=== PATIENT | male | born 1960 | race Caucasian/White ===

== ENCOUNTER 2018-02-22 16:10 | Emergency (ER) | payer OTHER ==
[2018-02-22] MEDS ORDERED: ONDANSETRON 4 MG/2 ML VIAL IVP STA ×2 (17:08→18:25)
[2018-02-22] MEDS ORDERED: SODIUM CHLORIDE 0.9% 1,000 ML IV STA (17:08)
[2018-02-22] MEDS ORDERED: KETOROLAC 30 MG/ML 1 ML VIAL IVP STA (17:08)
--- NOTE | 2018-02-22 17:12 | ED ---
Abdominal Pain HPI - General Chief Complaint: Abdominal Pain Stated Complaint: flank pain Time Seen by Provider: 02/22/18 17:04 Source: patient Mode of arrival: ambulatory Limitations: no limitations - History of Present Illness Initial Comments: 57-year-old male patient presents to the emergency department today for evaluation of right-sided mid abdominal pain. Patient describes the pain as sharp and stabbing in nature. States he did have some nausea earlier today but he has not vomited. Patient states had similar episodes of pain on Saturday but did resolve. Patient denies any radiation of the pain into his back. Denies any fever, chills, constipation, diarrhea, hematuria, dysuria, urinary frequency, urinary urgency. Patient denies any recent rash, shortness breath, chest pain, back pain, numbness, tingling, dizziness, weakness, headache, visual changes, or any other complaints. Patient has a benign past medical history and denies any previous surgeries to his abdomen. - Related Data Previous Rx's Medication Instructions Recorded Hydrocodone/Acetaminophen [[place] 1 tab PO Q6HR PRN #12 tab 02/22/18 5-325] Ketorolac [Toradol] 10 mg PO Q6HR #20 tab 02/22/18 Ondansetron [Zofran ODT] 4 mg PO Q8HR PRN #10 tab 02/22/18 Sulfamethoxazole/Trimethoprim 1 each PO BID #14 tablet 02/22/18 [Bactrim DS 800-160 mg] Tamsulosin HCl [Flomax] 0.4 mg PO DAILY #7 cap 02/22/18 Allergies Allergy/AdvReac Type Severity Reaction Status Date / Time No Known Allergies Allergy Verified 02/22/18 16:35 Review of Systems ROS Statement: Those systems with pertinent positive or pertinent negative responses have been documented in the HPI. ROS Other: All systems not noted in ROS Statement are negative. Past Medical History Past Medical History: No Reported History History of Any Multi-Drug Resistant Organisms: None Reported Past Surgical History: Orthopedic Surgery Past Psychological History: No Psychological Hx Reported Smoking Status: Never smoker Past Alcohol Use History: Daily Past Drug Use History: None Reported General Exam Limitations: no limitations General appearance: alert, in no apparent distress, other (This is a well- developed, well-nourished adult male patient in no acute distress. Vital signs upon presentation are temperature 98.3F, pulse 77, respirations 18, blood pressure 174/81, pulse ox 96% on room air.) Eye exam: Present: normal appearance, PERRL, EOMI. Absent: scleral icterus, conjunctival injection, periorbital swelling ENT exam: Present: normal exam, normal oropharynx, mucous membranes moist Respiratory exam: Present: normal lung sounds bilaterally. Absent: respiratory distress, wheezes, rales, rhonchi, stridor Cardiovascular Exam: Present: regular rate, normal rhythm, normal heart sounds. Absent: systolic murmur, diastolic murmur, rubs, gallop, clicks GI/Abdominal exam: Present: soft, normal bowel sounds. Absent: distended, tenderness, guarding, rebound, rigid Back exam: Absent: CVA tenderness (R), CVA tenderness (L) Neurological exam: Present: alert, oriented X3, CN II-XII intact Psychiatric exam: Present: normal affect, normal mood Skin exam: Present: warm, dry, intact, normal color. Absent: rash Course Vital Signs 02/22/18 16:35 Temperature 98.3 F Pulse Rate 77 Respiratory 18 Rate Blood Pressure 174/81 O2 Sat by Pulse 96 Oximetry Medical Decision Making - Medical Decision Making 57-year-old male patient presents to emergency department today for evaluation of right-sided abdominal pain. Physical examination was relatively unremarkable. Patient no flank tenderness, no abdominal tenderness. Labs reviewed and did reveal 8.4 neutrophil count, BUN 24, GFR 66, glucose 118. Urinalysis did show trace protein, moderate blood, 60 red blood cells, 6 white blood cells, rare bacteria, and rare mucous. Given symptoms and presence of blood in the urine he did perform CT abdomen and pelvis to rule out kidney stone , findings did show a 1 cm calculus in the distal third ureter on the right side. There is moderate hydronephrosis and perinephritic fat stranding. Given size of the stone I did discuss with patient the possibility of admission to see urologist in the morning, patient would rather attempt outpatient management and follow-up with urology outpatient. I did give prescriptions for [place], Toradol, Zofran, and Flomax. He also started Bactrim for presence of bacteria in the urine. Return parameters were discussed in detail. He verbalizes understanding and agrees with this plan. - Lab Data Result diagrams: 02/22/18 17:20 02/22/18 17:20 Lab Results 02/22/18 02/22/18 02/22/18 Range/Units 17:20 17:20 17:34 WBC 10.6 (3.8-10.6) k/uL RBC 4.53 (4.30-5.90) m/uL Hgb 14.7 (13.0-17.5) gm/dL Hct 44.8 (39.0-53.0) % MCV 98.8 (80.0-100.0) fL MCH 32.5 (25.0-35.0) pg MCHC 32.9 (31.0-37.0) g/dL RDW 12.1 (11.5-15.5) % Plt Count 191 (150-450) k/uL Neutrophils % 80 % Lymphocytes % 11 % Monocytes % 7 % Eosinophils % 1 % Basophils % 0 % Neutrophils # 8.4 H (1.3-7.7) k/uL Lymphocytes # 1.2 (1.0-4.8) k/uL Monocytes # 0.8 (0-1.0) k/uL Eosinophils # 0.1 (0-0.7) k/uL Basophils # 0.0 (0-0.2) k/uL Sodium 142 (137-145) mmol/L Potassium 4.1 (3.5-5.1) mmol/L Chloride 107 (98-107) mmol/L Carbon Dioxide 26 (22-30) mmol/L Anion Gap 9 mmol/L BUN 24 H (9-20) mg/dL Creatinine 1.22 (0.66-1.25) mg/dL Est GFR (CKD-EPI)AfAm 76 (>60 ml/min/1.73 sqM) Est GFR (CKD-EPI)NonAf 66 (>60 ml/min/1.73 sqM) Glucose 118 H (74-99) mg/dL Calcium 9.9 (8.4-10.2) mg/dL Total Bilirubin 0.6 (0.2-1.3) mg/dL AST 32 (17-59) U/L ALT 59 (21-72) U/L Alkaline Phosphatase 82 (38-126) U/L Total Protein 7.3 (6.3-8.2) g/dL Albumin 4.4 (3.5-5.0) g/dL Amylase 59 (30-110) U/L Lipase 19 L (23-300) U/L Urine Color Yellow Urine Appearance Clear (Clear) Urine pH 6.0 (5.0-8.0) Ur Specific [place] 1.015 (1.001-1.035) Urine Protein Trace H (Negative) Urine Glucose (UA) Negative (Negative) Urine Ketones Negative (Negative) Urine Blood Moderate H (Negative) Urine Nitrite Negative (Negative) Urine Bilirubin Negative (Negative) Urine Urobilinogen <2.0 (<2.0) mg/dL Ur Leukocyte Esterase Negative (Negative) Urine RBC 60 H (0-5) /hpf Urine WBC 6 H (0-5) /hpf Ur Squamous Epith Cells <1 (0-4) /hpf Urine Bacteria Rare H (None) /hpf Urine Mucus Rare H (None) /hpf - Radiology Data Radiology results: report reviewed, image reviewed CT abdomen and pelvis without contrast was obtained. Report was reviewed in its entirety. There is a 1 cm meter ovoid calculus in the distal third right ureter at the crossing with the iliac vessels. This causes moderate obstructive uropathy. Additional nonobstructive 3 mm right renal calculus, hepatomegaly, and prostatomegaly are also noted. Disposition Clinical Impression: Kidney stone on right side Disposition: HOME SELF-CARE Condition: Good Instructions: Kidney Stones (ED), How to Strain Your Urine (ED) Additional Instructions: Increase fluids. Take medications as directed. Follow-up with urologist for further evaluation. Return here immediately for any new, worsening, or concerning symptoms. Prescriptions: Hydrocodone/Acetaminophen [[place] 5-325] 1 tab PO Q6HR PRN #12 tab PRN Reason: Pain Ketorolac [Toradol] 10 mg PO Q6HR #20 tab Ondansetron [Zofran ODT] 4 mg PO Q8HR PRN #10 tab PRN Reason: Nausea Sulfamethoxazole/Trimethoprim [Bactrim DS 800-160 mg] 1 each PO BID #14 tablet Tamsulosin HCl [Flomax] 0.4 mg PO DAILY #7 cap Is patient prescribed a controlled substance at d/c from ED?: Yes When asked, does pt state using other controlled substances?: No If prescribed controlled substance>3 days was MAPS reviewed?: Prescribed <3 Days If opioid is for acute pain is fill amount 7 days or less?: Yes If Rx opioid, was Start Talking consent form obtained?: Yes Referrals: Francisco Virgen MD [Primary Care Provider] - 1-2 days Elder Guerrero MD [STAFF PHYSICIAN] - 1-2 days Time of Disposition: 18:46
[2018-02-22 17:43] LABS: Appearance,Urine Clear (Clear); Bacteria,Urine Rare /hpf; Bilirubin,Urine Negative (Negative); Blood,Urine Moderate (Negative); Color,Urine Yellow; Glucose,Urine (UA) Negative (Negative); Ketones,Urine Negative (Negative); Leukocyte Esterase,Urine Negative (Negative); Mucus,Urine Rare /hpf; Nitrite,Urine Negative (Negative); Protein,Urine Trace (Negative); RBC,Urine 60 /hpf (0-5); Specific Gravity,Urine 1.015 (1.001-1.035); Squamous Epithelial Cell,Urine <1 /hpf (0-4); Urobilinogen,Urine <2.0 mg/dL (<2.0); WBC,Urine 6 /hpf (0-5)
[2018-02-22 17:45] LABS: Basophils % (A) 0 %; Eosinophils # (A) 0.1 k/uL (0-0.7); Eosinophils % (A) 1 %; HCT 44.8 % (39.0-53.0); HGB 14.7 gm/dL (13.0-17.5); Lymphocytes # (A) 1.2 k/uL (1.0-4.8); Lymphocytes % (A) 11 %; MCH 32.5 pg (25.0-35.0); MCHC 32.9 g/dL (31.0-37.0); MCV 98.8 fL (80.0-100.0); Mean Platelet Volume 7.4; Monocytes # (A) 0.8 k/uL (0-1.0); Monocytes % (A) 7 %; Neutrophils # (A) 8.4 k/uL (1.3-7.7); Neutrophils % (A) 80 %; Platelet Count 191 k/uL (150-450); RBC 4.53 m/uL (4.30-5.90); RDW 12.1 % (11.5-15.5); WBC 10.6 k/uL (3.8-10.6)
[2018-02-22 17:46] LABS: Albumin 4.4 g/dL (3.5-5.0); Calcium 9.9 mg/dL (8.4-10.2); Potassium 4.1 mmol/L (3.5-5.1); Total Bilirubin 0.6 mg/dL (0.2-1.3); Total Protein 7.3 g/dL (6.3-8.2)
[2018-02-22] MEDS ORDERED: MORPHINE SULFATE 4 MG/ML SYRINGE IVP STA (18:25)
--- NOTE | 2018-02-22 18:30 | CT ---
EXAMINATION TYPE: CT abdomen pelvis wo con DATE OF EXAM: 02/22/2018 COMPARISON: None HISTORY: 57-year-old male Right sided abdominal pain CT DLP: 711.8 mGycm. Automated exposure control for dose reduction was used. TECHNIQUE: Contiguous axial scanning of the abdomen and pelvis without IV contrast. Coronal and sagit rachana reconstructions performed. FINDINGS: Heart normal size without pericardial effusion. Lung bases clear without pleural effusion. Liver mild ly enlarged measuring 18.7 cm craniocaudal. Noncontrast appearance of the liver, gallbladder, adrenal glands, left kidney, spleen, and pancreas show no gross abnormality. Nonobstructive 3 mm calculus lower pole right kidney. There is right-sided perinephric stranding and edema and moderate hydronephrosis and hydroureter. There is a ovoid 1.0 cm calculus at the distal thi rd right ureter at the crossing with the iliac vessels. No dilated small bowel, free fluid, or free air. No mesenteric or retroperitoneal lymphadenopathy. Mild stool burden. No pericolonic inflammatory change. Bladder partially distended. Prostate gland enlarged at 5.3 cm wide. No abnormal fluid collection in the pelvis or pelvic lymphadenopathy. Bones: Degenerative changes of the hips and degenerative disc disease throughout the mid to lower lum bar spine. No osseous destructive process. IMPRESSION: A 1 cm ovoid calculus in the distal third right ureter at the crossing with the iliac vessels. This c auses moderate obstructive uropathy. Additional nonobstructive 3 mm right renal calculus, hepatomegaly (18.7 cm), and prostatomegaly (5.3 cm wide).
[2018-02-22] MEDS ORDERED: TAMSULOSIN 0.4 MG CAP.ER.24H PO STA (18:47)
[2018-02-22 19:01] VITALS: BP 128/70; PULSE 78; RESP 16; TEMP 97.8
[2018-02-22] MEDS ORDERED: IBUPROFEN 600 MG TAB PO STA (20:03)
[2018-02-22] MEDS ORDERED: ACET/COD 300 MG/30 MG STARTER PACK 6 TAB BTL PO STA (20:03)
[2018-02-22] MEDS ORDERED: SULFAMETH-TMP DS STARTER PACK 2 TAB BTL PO STA (20:03)
== END 2018-02-22 19:00 | disposition home or self-care (01) ==
LOC: EC 16:10
DX: N13.2 Hydronephrosis with renal and ureteral calculous obstruction (principal); R16.0 Hepatomegaly, not elsewhere classified; N40.0 Benign prostatic hyperplasia without lower urinary tract symptoms; R82.71 Bacteriuria
CPT/HCPCS: 36415; 80053; 82150; 83690; 85025; 81001; 74176; 99284; 96374; 96375 ×2; 96376; 96361; J2270; J2405; J1885

== ENCOUNTER 2018-08-20 10:16 | Day surgery (SDC) | payer OTHER ==
[2018-08-19 10:01] VITALS: BMI 24.9
[~2018-08-20 10:16] MED LIST: LIDOCAINE 1% 20 ML VIAL (10MG/ML) FOR IV START INTRADERMA PRN
[2018-08-20] MEDS: LACTATED RINGERS 1,000 ML IV SCH ×2 (11:20→12:05)
[2018-08-20 11:32] VITALS: RESP 18; TEMP 97
[2018-08-20] MEDS ORDERED: PROPOFOL 10 MG/ML 20 ML VIAL IV ONE (12:05)
[2018-08-20] MEDS ORDERED: MIDAZOLAM 2 MG/2 ML VIAL ONE (12:05)
[2018-08-20] MEDS ORDERED: fentaNYL (PF) 50 MCG/ML 2 ML AMP ONE (12:05)
--- NOTE | 2018-08-20 12:24 | P.PCN ---
Date of Procedure: 08/20/18 Procedure(s) Performed: BRIEF HISTORY: Patient is a 58-year-old pleasant male, scheduled for an elective colonoscopy as a part of screening for colorectal neoplasia. PROCEDURE PERFORMED: Colonoscopy with snare polypectomy. PREOPERATIVE DIAGNOSIS: Screening for colon cancer. IV sedation per Anesthesia. PROCEDURE: After informed consent was obtained, the patient, was brought into the endoscopy unit. IV sedation was administered by Anesthesia under continuous monitoring. Digital rectal examination was normal. Initially the Olympus CF- 160 flexible video colonoscope was then inserted in the rectum, gradually advanced into the cecum without any difficulty. Careful examination was performed as the scope was gradually being withdrawn. Ileocecal valve and the appendiceal orifice were visualized and appeared normal. Prep was excellent. Mucosa of the cecum, ascending colon, transverse colon, appeared normal. In the descending colon there was a 7-8 mm polyp that was removed by snare polypectomy. Rest of the descending colon, sigmoid colon, and rectum appeared normal. Scattered sigmoid diverticulosis seen. Retroflexion was performed in the rectum and no lesions were seen. The patient tolerated the procedure well. IMPRESSION: 7-8 mm descending colon polyp status post polypectomy Scattered sigmoidal diverticulosis RECOMMENDATIONS: Findings of this examination were discussed with the patient as well as his family. He was advised to follow with the biopsy results. If the biopsy shows adenoma, he can have a repeat colonoscopy in 5 years.
[2018-08-20 13:03] VITALS: BP 163/80; PULSE 74
== END 2018-08-20 13:05 | disposition home or self-care (01) ==
LOC: ORWHC2ENDO 10:16
PROVIDERS: ATTEND Internal Medicine Gastroenterology
DX: Z12.11 Encounter for screening for malignant neoplasm of colon (principal); K63.5 Polyp of colon; K57.30 Diverticulosis of large intestine without perforation or abscess without bleeding; Z79.899 Other long term (current) drug therapy
CPT/HCPCS: 88305; 45385; J2250; J3010; J2704

== ENCOUNTER → 2020-04-27 | Outpatient (CLI) | payer OTHER ==
[2020-04-27 11:10] LABS: HCT 46.6 % (39.0-53.0); HGB 15.3 gm/dL (13.0-17.5); MCH 33.5 pg (25.0-35.0); MCHC 32.9 g/dL (31.0-37.0); Mean Platelet Volume 7.7; Platelet Count 192 k/uL (150-450); RBC 4.57 m/uL (4.30-5.90); RDW 11.5 % (11.5-15.5); WBC 8.4 k/uL (3.8-10.6)
[2020-04-27 11:26] LABS: African American GFR (CKD) >90 (>60 ml/min/1.73 sqM); Blood Urea Nitrogen 24 mg/dL (9-20); Magnesium 2.2 mg/dL (1.6-2.3); Non-African American GFR(CKD) 83 (>60 ml/min/1.73 sqM)
== END | disposition home or self-care (01) ==
LOC: LABPAT 09:40
PROVIDERS: ATTEND Internal Medicine Interventional Cardiology
DX: Z01.818 Encounter for other preprocedural examination (principal); I34.0 Nonrheumatic mitral (valve) insufficiency
CPT/HCPCS: 82565; 83735; 84520; 85027

== ENCOUNTER 2020-05-03 06:12 | Day surgery (SDC) | payer OTHER ==
[2020-04-29 15:47] VITALS: BMI 26.7
[~2020-05-03 06:12] MED LIST changes: +ALPRAZolam 0.25 MG TAB PO PRN; +ALPRAZolam 0.5 MG TAB PO PRN; -LIDOCAINE 1% 20 ML VIAL (10MG/ML) FOR IV START INTRADERMA PRN; +NITROGLYCERIN SL TABS 0.4 MG TAB SUBLINGUAL PRN; +SODIUM CHLORIDE 0.9% 1,000 ML in EMPTY BAG 1 BAG IV ONE
[2020-05-03] MEDS ORDERED: SODIUM CHLORIDE 0.9% 1,000 ML IV ONE (06:24)
[2020-05-03 06:49] VITALS: TEMP 98.8
[2020-05-03] MEDS ORDERED: ASPIRIN 325 MG TAB PO ONE (07:00)
[2020-05-03] MEDS ORDERED: ATORVASTATIN 80 MG TAB PO ONE (07:00)
[2020-05-03] MEDS ORDERED: fentaNYL (PF) 50 MCG/ML 2 ML AMP ONE (07:03)
[2020-05-03] MEDS ORDERED: LIDOCAINE 1% INJ 10MG/ML (20 ML MDV) ONE (07:12)
[2020-05-03] MEDS: BENZOCAINE SPRAY 1 CAN MUCOUS MEM ONE ×2 (07:14→07:21)
[2020-05-03] MEDS ORDERED: MIDAZOLAM 2 MG/2 ML VIAL IV ONE ×2 (07:20→07:23)
[2020-05-03] MEDS ORDERED: fentaNYL (PF) 50 MCG/ML 2 ML AMP IV ONE (07:20)
[2020-05-03] MEDS ORDERED: IV FLUID CONTINUATION 1,000 ML IV ONE (07:42)
[2020-05-03] MEDS ORDERED: VERAPAMIL 2.5 MG/ML 2 ML AMP ONE (07:43)
[2020-05-03] MEDS ORDERED: LIDOCAINE 1% INJ 10MG/ML (20 ML MDV) SQ ONE (08:02)
[2020-05-03] MEDS ORDERED: VERAPAMIL SYRINGE (5 MG/10 ML) INTRAARTER ONE (08:05)
[2020-05-03] MEDS ORDERED: HEPARIN SODIUM 1,000 UN/ML (10ML VL) ONE (08:19)
[2020-05-03] MEDS ORDERED: HEPARIN SODIUM 1,000 UN/ML (10ML VL) IV ONE (08:20)
[2020-05-03 08:27] LABS: O2 Sat Blood Gas 78.7 %
[2020-05-03] MEDS ORDERED: IOPAMIDOL-370 125ML BTL INJ ONE (08:27)
[2020-05-03 08:29] LABS: O2 Sat Blood Gas 61.2 %
[2020-05-03 08:31] LABS: O2 Sat Blood Gas 97.4 %
[2020-05-03] MEDS ORDERED: RX INFO: IV CONTRAST WAS GIVEN 1 EACH MISC MISCELLANE PRN (08:44)
[2020-05-03] MEDS ORDERED: SODIUM CHLORIDE 0.9% 1,000 ML IV SCH (08:45)
[2020-05-03] MEDS ORDERED: lisinopriL 10 MG TAB PO SCH (09:00)
[2020-05-03] MEDS ORDERED: ATORVASTATIN 10 MG TAB PO SCH (09:00)
[2020-05-03 09:32] VITALS: RESP 16
--- NOTE | 2020-05-03 10:43 | ECHOT ---
TRANSESOPHAGEAL ECHOCARDIOGRAM INDICATIONS: Evaluation of mitral valve. PROCEDURE: After explaining the procedure to the patient, its risks and the complications, his blood pressure, heart rate, O2 saturation was monitored. The throat was sprayed with Cetacaine, he received 3 mg intravenous Versed, 50 mcg intravenous fentanyl. The probe was introduced esophagus without difficulty. Images were obtained. Following that, the probe was removed there was no immediate complication. FINDINGS: Left atrial size is mildly dilated. Left atrial appendage is normal. Normal ejection fraction of 50% to 55%.The aortic valve and the tricuspid valve is normal. Mitral valve reveals severe prolapse of the posterior mitral valve leaflets with the P3 segment with ruptured chordae. The descending thoracic aorta appears normal. Contrast bubble study revealed no evidence shunting across the interatrial septum with Valsalva maneuver. Doppler pulse wave and color Doppler were obtained revealed severe eccentric mitral regurgitation with mild tricuspid regurgitation. There was no shunting by color Doppler study. CONCLUSION: 1. Dilated left atrium with normal appearance of left atrial appendage. 2. Normal left ventricular size with an ejection fraction of 50% to 55%. 3. Severe eccentric mitral regurgitation with severe prolapse of the P3 segment with ruptured chordae. 4. Mild tricuspid regurgitation. 5. No shunting across the interatrial septum. 6. Normal appearance of the descending thoracic aorta. MMODL / IJN: [id number] /
[2020-05-03 11:36] LABS: Basophils % (A) 1 %; Eosinophils % (A) 1 %; HCT 41.8 % (39.0-53.0); HGB 14.3 gm/dL (13.0-17.5); Lymphocytes # (A) 1.2 k/uL (1.0-4.8); Lymphocytes % (A) 20 %; MCH 33.8 pg (25.0-35.0); MCHC 34.2 g/dL (31.0-37.0); MCV 98.9 fL (80.0-100.0); Mean Platelet Volume 8.3; Monocytes # (A) 0.4 k/uL (0-1.0); Monocytes % (A) 7 %; Neutrophils # (A) 4.3 k/uL (1.3-7.7); Neutrophils % (A) 71 %; Platelet Count 149 k/uL (150-450); RBC 4.23 m/uL (4.30-5.90); RDW 11.6 % (11.5-15.5); WBC 6.1 k/uL (3.8-10.6)
--- NOTE | 2020-05-03 11:39 | US ---
EXAMINATION TYPE: US carotid duplex BILAT DATE OF EXAM: 05/03/2020 COMPARISON: NONE CLINICAL HISTORY: Pre-Op Cardiac Surgery. EXAM MEASUREMENTS: RIGHT: Peak Systolic Velocity (PSV) cm/sec ----- Right CCA: 88.6 ----- Right ICA: 103 ----- Right ECA: 110. ICA/CCA ratio: 1.17 RIGHT: End Diastole cm/sec ----- Right CCA: 11.3 ----- Right ICA: 22.9 ----- Right ECA: 9.2 LEFT: Peak Systolic Velocity (PSV) cm/sec ----- Left CCA: 95.3 ----- Left ICA: 76.1 ----- Left ECA: 110. ICA/CCA ratio: 0.8 LEFT: End Diastole cm/sec ----- Left CCA: 14.9 ----- Left ICA: 18.0 ----- Left ECA: 10.8 VERTEBRALS (direction of flow): Right Vertebral: Antegrade Left Vertebral: Antegrade Rhythm: Normal Mild atherosclerotic changes with no significant velocity elevations. IMPRESSION: No evidence for hemodynamically significant stenosis. Criteria for Assigning % of Stenosis / Diameter reduction (Estimation based on the indirect measurements of the internal carotid artery velocities (ICA PSV). 1. Normal (no stenosis)=ICA PSV < 125 cm/s: ratio < 2.0: ICA EDV<40 cm/s. 2. Less than 50% stenosis=ICA PSV < 125 cm/s: ratio < 2.0: ICA EDV<40 cm/s. 3. 50 to 69% stenosis=ICA PSV of 125 to 230 cm/s: ration 2.0 ? 4.0: ICA EDV 40-100 cm/s. 4. Greater than 70% stenosis to near occlusion= ICA PSV > 230 cm/s: ratio > 4.0: ICA EDV > 100 cm/s. 5. Near occlusion= ICA PSV velocities may be low or undetectable: variable ratio and ICA EDV. 6. Total occlusion=unable to detect flow.
[2020-05-03 11:52] LABS: ALT 48 U/L (4-49); AST 32 U/L (17-59); African American GFR (CKD) >90 (>60 ml/min/1.73 sqM); Albumin 3.8 g/dL (3.5-5.0); Alkaline Phosphatase 52 U/L (38-126); Anion Gap 4 mmol/L; Blood Urea Nitrogen 22 mg/dL (9-20); Calcium 8.6 mg/dL (8.4-10.2); Carbon Dioxide 27 mmol/L (22-30); Chloride 106 mmol/L (98-107); Cholesterol 174 mg/dL (<200); Glucose 97 mg/dL (74-99); HDL Cholesterol 62 mg/dL (40-60); LDL Cholesterol,Calculated 85 mg/dL (0-99); Non-African American GFR(CKD) >90 (>60 ml/min/1.73 sqM); Sodium 137 mmol/L (137-145); Total Bilirubin 0.8 mg/dL (0.2-1.3); Total Protein 6.2 g/dL (6.3-8.2); Triglycerides 137 mg/dL (<150)
--- NOTE | 2020-05-03 12:02 | P.GSCN ---
History of Present Illness Consult date: 05/03/20 Reason for Consult: Mitral valve regurgitation Requesting physician: Toby Camejo History of present illness: This is a 59-year-old very active gentleman who follows on an outpatient basis with Dr. Virgen for primary care. His only previous medical history is hypertension, hyperlipidemia, and daily EtOH use. Apparently he was at his dentist to have his cleaning completed, he was noted to be hypertensive and was sent to his primary care office. At his primary care office was noted to have a murmur and a transthoracic echocardiogram was completed demonstrating severe eccentric mitral regurgitation with flail posterior leaflet, normal left ventricular size with EF 50-55%, and no wall motion abnormalities. Due to these findings he was sent to Dr. Camejo from [facility]. He was recommended to undergo heart catheterization and transesophageal echocardiogram which were completed this morning. Heart catheterization revealed no obstructive coronary artery disease. Transesophageal echocardiogram demonstrated normal left ventricular size with ejection fraction 50-55%, dilated left atrium, severe eccentric mitral regurgitation with severe prolapse of the P3 segment with ruptured chordae, and mild tricuspid regurgitation. The patient denies any symptoms of heart failure, denies shortness of breath, chest pain, dizziness, syncopal episodes, or any other symptomatology. He also denies ever having been told he has a murmur or any valvular pathology. Due to the findings on [facility] Dr. Gore from cardiothoracic surgery was consulted for surgical recommendations. Review of Systems Review of systems was completed and was negative Past Medical History Past Medical History: Hyperlipidemia, Hypertension Additional Past Medical History / Comment(s): HEART MURMUR History of Any Multi-Drug Resistant Organisms: None Reported Past Surgical History: Orthopedic Surgery, Tonsillectomy Additional Past Surgical History / Comment(s): rt knee ACL. COLONOSCOPY Past Anesthesia/Blood Transfusion Reactions: No Reported Reaction Past Psychological History: No Psychological Hx Reported Smoking Status: Never smoker Past Alcohol Use History: Daily Additional Past Alcohol Use History / Comment(s): Drinks 3 beers daily Past Drug Use History: None Reported - Past Family History Mother Family Medical History: Cancer Father Family Medical History: AICD/Pacemaker Medications and Allergies Home Medications Medication Instructions Recorded Confirmed Type Aspirin 325 mg PO ONCE 08/19/18 05/03/20 History Atorvastatin [Lipitor] 10 mg PO DAILY 08/19/18 05/03/20 History Ibuprofen 200 mg PO TID PRN 08/19/18 05/03/20 History lisinopriL [Zestril] 10 mg PO DAILY 05/03/20 05/03/20 History Allergies Allergy/AdvReac Type Severity Reaction Status Date / Time No Known Allergies Allergy Verified 05/03/20 06:30 Surgical - Exam Vital Signs Temp Pulse Resp BP Pulse Ox 98.8 F 90 16 176/89 97 05/03/20 06:47 05/03/20 06:47 05/03/20 06:47 05/03/20 06:47 05/03/20 06:47 - General well developed, well nourished, no distress, no pain - Eyes PERRL, normal ocular movement - ENT no hearing loss - Neck no masses, no bruits, trachea midline - Respiratory Lungs sounds clear bilaterally. Respirations even, nonlabored. Currently on room air with oxygen saturation 97%. No chest wall deformities. No clubbing or cyanosis present. - Cardiovascular S1, S2 present, positive systolic murmur. Regular rate and rhythm, sinus rhythm on telemetry. Palpable peripheral pulses bilaterally. No edema present. No calf pain or tenderness noted. - Abdomen Abdomen: soft, non tender, bowel sounds - Genitourinary Deferred - Rectum Deferred - Integumentary no rash, no growths - Neurologic normal coordination, normal sensation - Musculoskeletal normal gait, normal posture - Psychiatric oriented to time, oriented to person, oriented to place, speech is normal, memory intact Results - Labs 05/03/20 11:22 Abnormal Lab Results - Last 24 Hours (Table) 05/03/20 Range/Units 11:22 RBC 4.23 L (4.30-5.90) m/uL Plt Count 149 L (150-450) k/uL - Imaging Additional studies: Heart catheterization and FAIZA films reviewed Assessment and Plan Assessment: 1. Severe eccentric mitral regurgitation with prolapse of P3 segment with rup tured chordae 2. Hypertension, treated 3. Hyperlipidemia, treated 4. Daily EtOH use 5. Lifelong nonsmoker Plan: The patient was seen and examined in the extended stay unit. Chart/diagnostics were reviewed. The case will be discussed in detail with Dr. Gore who will see the patient today. The patient remains asymptomatic. The usual perioperative course of mitral valve repair versus replacement was discussed in detail with the patient and his , risks and benefits were reviewed, all questions were answered. The patient does consent to preoperative testing which was initiated. He will need to obtain dental clearance, patient does regularly see the dentist. He does request that surgery waits for another 4-6 weeks due to being very busy at his workplace currently. More recommendations to follow once patient is seen by Dr. Gore. Thank you Dr. Camejo for this consult. We look forward to working with you in the care of your patient Time with Patient: Greater than 30
[2020-05-03 12:05] LABS: Partial Thromboplastin Time 23.8 sec (22.0-30.0); Prothrombin Time 10.2 sec (9.0-12.0)
[2020-05-03 12:54] LABS: Appearance,Urine Clear (Clear); Bilirubin,Urine Negative (Negative); Blood,Urine Trace (Negative); Color,Urine Yellow; Glucose,Urine (UA) Negative (Negative); Ketones,Urine Negative (Negative); Leukocyte Esterase,Urine Negative (Negative); Mucus,Urine Rare /hpf; Nitrite,Urine Negative (Negative); Protein,Urine Negative (Negative); RBC,Urine 3 /hpf (0-5); Urobilinogen,Urine <2.0 mg/dL (<2.0); WBC,Urine 4 /hpf (0-5)
[2020-05-03 12:59] VITALS: BP 139/65; PULSE 62
[2020-05-03 15:30] LABS: Hepatitis A Antibody IgM Non-Reactive (Non-Reactive); Hepatitis B Core IgM Non-Reactive (Non-Reactive); Hepatitis B Surface Antigen Non-Reactive (Non-Reactive); Hepatitis C IgG Antibody Non-Reactive (Non-Reactive)
--- NOTE | 2020-05-03 15:34 | CC ---
CARDIAC CATHETERIZATION REPORT Mr. Shi is a 59-year-old male with no prior documented history of cardiac disease who was recently noted to have a heart murmur and his echocardiogram revealed severe mitral regurgitation. In view of that, recommendation regarding cardiac catheterization. The procedure, as well as the risks and complication were discussed with the patient who is in full understanding and agreement. PROCEDURE: Patient was brought to assistant laboratory director in a fasting semi-sedated state after receiving fentanyl and Benadryl. The sheath using Xylocaine anesthesia and Seldinger technique, a 6-[place] sheath was introduced in the right radial artery. Following that, using a guidewire exchange technique, the intravenous catheter in the right basilic vein was exchanged to a 6-[place] sheath. Right heart catheterization was performed with a [place]- Sh[place]nam catheter. Multiple pressure and samples were obtained. Cardiac output by thermodilution was calculated. Following that, a selective right and left coronary angiography performed using 5-[place] 3.5 bend right and left Suzie catheter, multiple views of chronic including hemiaxial views were obtained. Following that, a 5-[place] tight pigtail catheter was introduced left ventricle and a 30-degree RANDALL view was obtained. Following that, catheter and sheath were removed. Hemostasis was obtained with deployment of a TR band and compression of the right brachial area. Of note, the patient received 5000 units of intravenous heparin as well as verapamil. FINDINGS: HEMODYNAMICS: Pulmonary artery systolic pressure of 23 with an end-diastolic of 3 and a mean of 14 mmHg. Pulmonary capillary wedge pressure A-wave of 10 with a V-wave of 20 with a mean of 10 mmHg. Right ventricular systolic pressure of 18 with an end-diastolic of 2, right atrium A-wave of 5, V-wave of 10 with a mean of 3 mmHg. There was no gradient across the aortic valve. Left ventricular end diastolic pressure was 15-20 mmHg. Right atrial saturation of 61%, pulmonary artery saturation of 79%, radial artery of 97%. Cardiac output by Don of 4.4 L/minute and by thermal of 9.2 L/minute. CORONARIES: Fluoroscopically there was calcification involving the left anterior descending artery. LEFT MAIN: This is a large-sized vessel, bifurcating into left circumflex, left anterior descending artery left main artery has no evidence of high-grade stenosis. LEFT ANTERIOR DESCENDING ARTERY: This is a large-sized vessel reaching toward the apex with a wraparound apex segment giving rise to 2 diagonal branch. The left anterior descending coronary artery as well as branches have no evidence of obstructive disease. LEFT CIRCUMFLEX: This is a nondominant vessel, large in caliber giving rise to 2 obtuse marginal branch. The left circumflex as well as branches have no evidence of obstructive coronary disease. RIGHT CORONARY ARTERY: This is a large dominant vessel bifurcating distally to PDA and posterolateral segment and branches. The right coronary artery as well as branches have no evidence of obstructive disease. LEFT VENTRICULOGRAM: Was performed in 30-degree RANDALL view and revealed normal left ventricular size and systolic function. Ejection fraction 55%. There was 3+ to 4+ mitral regurgitation. CONCLUSION: 1. Mildly calcified coronary arteries with no evidence of significant obstructive disease. 2. Evidence of significant mitral regurgitation. RECOMMENDATION: In view of finding anatomy, I recommend proceeding with evaluation for aortic for mitral valve repair. Those findings and recommendation were discussed with the patient his family and they are in full understanding and agreement. Duration of sedation 29 minutes. MMODL / IJN: [id number] /
--- NOTE | 2020-05-03 15:34 | LTR ---
May 03, 2020. Dear Dr. Virgen: I performed cardiac catheterization Mr. Shi at [facility] on May 03 and a full copy of the procedure note will be forwarded to you. In brief, he was found to have no evidence of significant obstructive disease with severe mitral regurgitation, mitral valve prolapse and in view of that I have recommend proceeding with evaluation for mitral valve repair. I will keep you updated on his progress. Thank you again for allowing me the opportunity to participate in his care. MMSIRENAL / IJN: [id number] /
[2020-05-03 18:45] LABS: Hemoglobin A1C 4.9 % (4.0-6.0)
--- NOTE | 2020-05-13 13:30 | CONS ---
CONSULTATION DATE OF CONSULTATION: 05/03/20 I have seen, examined, and agree with the midlevel's findings. MMODL / IJN: [id number] / Job#: [id number]
== END 2020-05-03 13:35 | disposition home or self-care (01) ==
LOC: CATHCVL 06:12
PROVIDERS: ATTEND Internal Medicine Interventional Cardiology
DX: I08.1 Rheumatic disorders of both mitral and tricuspid valves (principal); I25.10 Atherosclerotic heart disease of native coronary artery without angina pectoris; I10 Essential (primary) hypertension; E78.2 Mixed hyperlipidemia; Z79.899 Other long term (current) drug therapy; Z79.82 Long term (current) use of aspirin; Z87.891 Personal history of nicotine dependence; Z98.890 Other specified postprocedural states; Z90.89 Acquired absence of other organs; Z82.49 Family history of ischemic heart disease and other diseases of the circulatory system; Z80.9 Family history of malignant neoplasm, unspecified
CPT/HCPCS: 93312; 93320; 93325; 93460; 80061; 80053; 80074; 85018; 84443; 82810; 83735; 85025; 85610; 85730; 81001; 83036; 93880; C1751; C1769; C1894; J2250; J2001; J3010; J1644; Q9967

== ENCOUNTER → 2020-05-26 | Outpatient (CLI) | payer OTHER ==
--- NOTE | 2020-05-26 12:44 | P.PN ---
Progress Note - Text Progress Note Date: 05/26/20 5 meter walk test completed today: #1 2.99 sec #2 2.99 sec #3 2.86 sec Patient tolerated well without difficulty. STS risk score was calculated and discussed with the patient
[2020-05-26 13:11] LABS: HCT 43.8 % (39.0-53.0); HGB 14.5 gm/dL (13.0-17.5); MCH 32.7 pg (25.0-35.0); MCV 98.9 fL (80.0-100.0); Mean Platelet Volume 7.7; Platelet Count 185 k/uL (150-450); RBC 4.43 m/uL (4.30-5.90); RDW 12.4 % (11.5-15.5); WBC 7.5 k/uL (3.8-10.6)
[2020-05-26 13:15] LABS: INR 0.9 (<1.2); Partial Thromboplastin Time 24.3 sec (22.0-30.0); Prothrombin Time 9.6 sec (9.0-12.0)
[2020-05-26 13:16] LABS: ALT 61 U/L (4-49); AST 43 U/L (17-59); African American GFR (CKD) >90 (>60 ml/min/1.73 sqM); Albumin 4.7 g/dL (3.5-5.0); Alkaline Phosphatase 79 U/L (38-126); Anion Gap 5 mmol/L; Blood Urea Nitrogen 22 mg/dL (9-20); Calcium 9.8 mg/dL (8.4-10.2); Carbon Dioxide 29 mmol/L (22-30); Chloride 107 mmol/L (98-107); Glucose 115 mg/dL (74-99); Non-African American GFR(CKD) 87 (>60 ml/min/1.73 sqM); Potassium 4.2 mmol/L (3.5-5.1); Sodium 141 mmol/L (137-145); Total Bilirubin 0.8 mg/dL (0.2-1.3); Total Protein 7.6 g/dL (6.3-8.2)
[2020-05-26 14:25] LABS: Appearance,Urine Clear (Clear); Bilirubin,Urine Negative (Negative); Blood,Urine Trace (Negative); Color,Urine Yellow; Glucose,Urine (UA) Negative (Negative); Ketones,Urine Negative (Negative); Leukocyte Esterase,Urine Negative (Negative); Nitrite,Urine Negative (Negative); PH, Urine 6.5 (5.0-8.0); Protein,Urine Negative (Negative); RBC,Urine 9 /hpf (0-5); Specific Gravity,Urine 1.022 (1.001-1.035); Urobilinogen,Urine <2.0 mg/dL (<2.0); WBC,Urine <1 /hpf (0-5)
--- NOTE | 2020-05-26 14:28 | XR ---
EXAMINATION TYPE: XR chest 2V DATE OF EXAM: 05/26/2020 COMPARISON: None HISTORY: 60-year-old male mitral valve regurgitation, preop open heart surgery. TECHNIQUE: Frontal and lateral views FINDINGS: The cardiomediastinal silhouette, aorta, and pulmonary vasculature are within normal limits. Lungs an d pleural spaces are clear. IMPRESSION: No acute cardiopulmonary process.
== END | disposition home or self-care (01) ==
LOC: LABPAT 08:20
PROVIDERS: ATTEND Thoracic Surgery (Cardiothoracic Vascular Surgery)
DX: Z20.828 Contact with and (suspected) exposure to other viral communicable diseases (principal)
CPT/HCPCS: 94150; 80053; 85027; 85610; 85730; 81001; 87070; 71046; 93922; 93005; 36415; U0003; C9803

== ENCOUNTER 2020-06-03 05:31 | Inpatient (IN) | payer OTHER ==
[~2020-06-03 05:31] MED LIST changes: +ALBUMIN HUMAN 25% 50 ML IV ONE; +ALBUMIN HUMAN 5% 500 ML IVPB ONE; -ALPRAZolam 0.25 MG TAB PO PRN; -ALPRAZolam 0.5 MG TAB PO PRN; +ASPIRIN 325 MG TAB PO ONE; +ATORVASTATIN 10 MG TAB PO ONE; +CALCIUM CHLORIDE 100 MG/ML 10 ML SYRINGE IV ONE; +CHLORHEXIDINE GLUCONATE 15 ML CUP MUCOUS MEM ONE; +CLEVIDIPINE BUTYRATE 25 MG in EMPTY BAG 1 BAG IV ONE; +DEXTROSE 5% IN WATER 1,000 ML with POTASSIUM CHLORIDE 110 MEQ, MAGNESIUM SULFATE 16 MEQ... IV ONE; +DEXTROSE 5% IN WATER 1,000 ML with POTASSIUM CHLORIDE 25 MEQ, SODIUM CHLORIDE 2.5MEQ/ML... IRRIGATION ONE; +HEPARIN SODIUM 1,000 UN/ML (10ML VL) IV ONE; +HEPARIN SODIUM,PORCINE 5,000 UNIT in SODIUM CHLORIDE 0.9% 500 ML 500 ML IV ONE; +INSULIN REGULAR 100 UNIT in SODIUM CHLORIDE 0.9% 100 ML IV ONE; +LACTATED RINGERS 1,000 ML IV ONE; +MAGNESIUM SULFATE MG 500 MG/ML IV ONE; +MANNITOL 25% 12.5 GM/50 ML VIAL IV ONE; +METOPROLOL TARTRATE 12.5 MG TAB PO ONE; -NITROGLYCERIN SL TABS 0.4 MG TAB SUBLINGUAL PRN; +NITROGLYCERIN-D5W PMX 25 MG/250 ML BTL IV ONE; +NOREPINEPHRINE 4 MG in SODIUM CHLORIDE 0.9% 250 ML IV ONE; +PHENYLEPHRINE 10 MG/ML VIAL IV ONE; +PHENYLEPHRINE 40 MG in SODIUM CHLORIDE 0.9% 250 ML IV ONE; +PROTAMINE SULFATE 10 MG/ML 25 ML VIAL IV ONE; +PROTAMINE SULFATE 250 MG in EMPTY BAG 1 BAG IV ONE; +SODIUM BICARB 8.4% 50 ML SYR (1 MEQ/ML) IV ONE; +SODIUM CHLORIDE 0.9% 1,000 ML IV ONE; -SODIUM CHLORIDE 0.9% 1,000 ML in EMPTY BAG 1 BAG IV ONE; +TRANEXAMIC ACID 2,000 MG in SODIUM CHLORIDE 0.9% 80 ML IV ONE; +ceFAZolin 2,000 MG in SODIUM CHLORIDE 0.9% 30 ML IVPB ONE; +propofoL 1,000 MG/100 ML VIAL IV ONE
[2020-06-03] MEDS ORDERED: LIDOCAINE 1% (10MG/ML) FOR IV START INTRADERMA ONE (06:15)
[2020-06-03] MEDS ORDERED: SUCCINYLCHOLINE CHLORIDE 100 MG/5 ML SYR IV ONE (07:31)
[2020-06-03] MEDS ORDERED: TRANEXAMIC ACID 1,000 MG/10 ML VIAL ONE (07:31)
[2020-06-03] MEDS ORDERED: LIDOCAINE 2% SYG (PF) 100 MG/5 ML ONE (07:31)
[2020-06-03] MEDS ORDERED: SODIUM CHLORIDE 0.9% IRRIG 1,000 ML BTL IRRIGATION ONE (07:31)
[2020-06-03] MEDS ORDERED: INSULIN REGULAR 100 UNIT/ML VIAL ONE (07:31)
[2020-06-03] MEDS ORDERED: MIDAZOLAM 2 MG/2 ML VIAL ONE (07:31)
[2020-06-03] MEDS ORDERED: VECURONIUM 10 MG VIAL IV ONE (07:31)
[2020-06-03] MEDS ORDERED: SODIUM CHLORIDE 0.9% 250 ML BAG ONE (07:31)
[2020-06-03] MEDS ORDERED: HEPARIN SODIUM,PORCINE 10,000 UNIT/ML 1 ML VIAL ONE (07:31)
[2020-06-03] MEDS ORDERED: ELECTROLYTE-R (PH 7.4) 1,000 ML IV.SOLN IV ONE (07:31)
[2020-06-03] MEDS ORDERED: PROPOFOL 10 MG/ML 20 ML VIAL IV ONE (07:31)
[2020-06-03] MEDS ORDERED: MAGNESIUM SULFATE 4 MEQ/ML 10ML VIAL ONE (07:31)
[2020-06-03] MEDS ORDERED: PROTAMINE SULFATE 10 MG/ML 25 ML VIAL IV ONE (07:31)
[2020-06-03] MEDS ORDERED: fentaNYL (PF) 50 MCG/ML 2 ML AMP ONE (07:31)
[2020-06-03] MEDS ORDERED: fentaNYL (PF) 50 MCG/ML 50 ML VIAL ONE (07:31)
[2020-06-03 08:54] LABS: ABG Base Excess 0.4 mmol/L; ABG Glucose Whole Blood 100 mg/dL (75-99); ABG HCO3 26 mmol/L (21-25); ABG Hematocrit 44 % (34.0-46.0); ABG Ionized Calcium 4.8 mg/dL (4.5-5.3); ABG Lactic Acid Whole Blood 0.9 mmol/L (0.5-1.6); ABG Oxygen Saturation 99.9 % (94-97); ABG PCO2 44 mmHg (35-45); ABG PH 7.38 (7.35-7.45); ABG PO2 287 mmHg (83-108); ABG Potassium Whole Blood 4.6 mmol/L (3.4-4.5); ABG Sodium Whole Blood 140 mmol/L (135-146); ABG TCO2 27 mmol/L (19-24)
[2020-06-03] MEDS ORDERED: SODIUM CHLORIDE 0.9% 500 ML 500 ML with HEPARIN SODIUM,PORCINE 5,000 UNIT IV ONE ×2 (09:30)
[2020-06-03 09:43] LABS: ABG Base Excess -2.2 mmol/L; ABG Glucose Whole Blood 102 mg/dL (75-99); ABG HCO3 23 mmol/L (21-25); ABG Hematocrit 37 % (34.0-46.0); ABG Ionized Calcium 4.3 mg/dL (4.5-5.3); ABG Lactic Acid Whole Blood 0.8 mmol/L (0.5-1.6); ABG Oxygen Saturation 99.9 % (94-97); ABG PCO2 39 mmHg (35-45); ABG PH 7.38 (7.35-7.45); ABG PO2 255 mmHg (83-108); ABG Potassium Whole Blood 3.7 mmol/L (3.4-4.5); ABG Sodium Whole Blood 141 mmol/L (135-146); ABG TCO2 24 mmol/L (19-24)
[2020-06-03 10:10] LABS: ABG Base Excess -1.8 mmol/L; ABG Glucose Whole Blood 175 mg/dL (75-99); ABG HCO3 25 mmol/L (21-25); ABG Hematocrit 33 % (34.0-46.0); ABG Ionized Calcium 4.2 mg/dL (4.5-5.3); ABG Lactic Acid Whole Blood 0.9 mmol/L (0.5-1.6); ABG PCO2 53 mmHg (35-45); ABG PH 7.29 (7.35-7.45); ABG PO2 326 mmHg (83-108); ABG Potassium Whole Blood 5.1 mmol/L (3.4-4.5); ABG Sodium Whole Blood 135 mmol/L (135-146); ABG TCO2 27 mmol/L (19-24)
[2020-06-03 10:24] LABS: ABG Base Excess -2.2 mmol/L; ABG Glucose Whole Blood 152 mg/dL (75-99); ABG HCO3 25 mmol/L (21-25); ABG Hematocrit 36 % (34.0-46.0); ABG Ionized Calcium 4.4 mg/dL (4.5-5.3); ABG PCO2 51 mmHg (35-45); ABG Potassium Whole Blood 4.1 mmol/L (3.4-4.5); ABG Sodium Whole Blood 137 mmol/L (135-146); ABG TCO2 26 mmol/L (19-24)
[2020-06-03 10:28] LABS: ABG Glucose Whole Blood 145 mg/dL (75-99); ABG HCO3 28 mmol/L (21-25); ABG Hematocrit 35 % (34.0-46.0); ABG Ionized Calcium 4.3 mg/dL (4.5-5.3); ABG Oxygen Saturation 83.3 % (94-97); ABG PCO2 57 mmHg (35-45); ABG Potassium Whole Blood 4.1 mmol/L (3.4-4.5); ABG Sodium Whole Blood 140 mmol/L (135-146); ABG TCO2 30 mmol/L (19-24)
[2020-06-03 10:38] LABS: ABG Base Excess -0.2 mmol/L; ABG Glucose Whole Blood 154 mg/dL (75-99); ABG HCO3 26 mmol/L (21-25); ABG Hematocrit 35 % (34.0-46.0); ABG Ionized Calcium 4.3 mg/dL (4.5-5.3); ABG Lactic Acid Whole Blood 1.1 mmol/L (0.5-1.6); ABG PCO2 49 mmHg (35-45); ABG PH 7.34 (7.35-7.45); ABG PO2 334 mmHg (83-108); ABG Potassium Whole Blood 4.3 mmol/L (3.4-4.5); ABG Sodium Whole Blood 138 mmol/L (135-146); ABG TCO2 28 mmol/L (19-24)
[2020-06-03 11:08] LABS: ABG Glucose Whole Blood 140 mg/dL (75-99); ABG HCO3 26 mmol/L (21-25); ABG Hematocrit 34 % (34.0-46.0); ABG Ionized Calcium 4.3 mg/dL (4.5-5.3); ABG PCO2 41 mmHg (35-45); ABG PH 7.41 (7.35-7.45); ABG PO2 368 mmHg (83-108); ABG Potassium Whole Blood 4.5 mmol/L (3.4-4.5); ABG Sodium Whole Blood 137 mmol/L (135-146); ABG TCO2 27 mmol/L (19-24)
[2020-06-03 11:40] LABS: ABG Glucose Whole Blood 121 mg/dL (75-99); ABG HCO3 25 mmol/L (21-25); ABG Hematocrit 32 % (34.0-46.0); ABG Ionized Calcium 4.2 mg/dL (4.5-5.3); ABG Lactic Acid Whole Blood 1.7 mmol/L (0.5-1.6); ABG PCO2 39 mmHg (35-45); ABG PH 7.41 (7.35-7.45); ABG PO2 404 mmHg (83-108); ABG Potassium Whole Blood 4.4 mmol/L (3.4-4.5); ABG Sodium Whole Blood 137 mmol/L (135-146); ABG TCO2 26 mmol/L (19-24)
[2020-06-03 12:13] LABS: ABG Base Excess 1.1 mmol/L; ABG Glucose Whole Blood 114 mg/dL (75-99); ABG HCO3 26 mmol/L (21-25); ABG Hematocrit 33 % (34.0-46.0); ABG Ionized Calcium 4.4 mg/dL (4.5-5.3); ABG Lactic Acid Whole Blood 1.7 mmol/L (0.5-1.6); ABG Oxygen Saturation 99.9 % (94-97); ABG PCO2 39 mmHg (35-45); ABG PH 7.42 (7.35-7.45); ABG PO2 209 mmHg (83-108); ABG Potassium Whole Blood 3.9 mmol/L (3.4-4.5); ABG Sodium Whole Blood 139 mmol/L (135-146); ABG TCO2 27 mmol/L (19-24)
[2020-06-03 12:51] LABS: ABG Base Excess 0.8 mmol/L; ABG Glucose Whole Blood 117 mg/dL (75-99); ABG HCO3 25 mmol/L (21-25); ABG Hematocrit 37 % (34.0-46.0); ABG Ionized Calcium 4.4 mg/dL (4.5-5.3); ABG Lactic Acid Whole Blood 1.1 mmol/L (0.5-1.6); ABG Oxygen Saturation 99.5 % (94-97); ABG PCO2 39 mmHg (35-45); ABG PH 7.42 (7.35-7.45); ABG PO2 149 mmHg (83-108); ABG Potassium Whole Blood 4.4 mmol/L (3.4-4.5); ABG Sodium Whole Blood 138 mmol/L (135-146); ABG TCO2 27 mmol/L (19-24)
[2020-06-03] MEDS ORDERED: ALBUMIN HUMAN 5% 0 ML IVPB ONE (13:34)
[2020-06-03 13:35] LABS: Allen Test Performed? NO
[2020-06-03 13:37] LABS: ABG PO2 >420 mmHg (83-108)
[2020-06-03 13:37] LABS: ABG PO2 50 mmHg (83-108)
[2020-06-03] MEDS ORDERED: AMIODARONE 360 MG in DEXTROSE 5% IN WATER 200 ML IV PRN ×2 (13:59)
[2020-06-03] MEDS ORDERED: Magnesium Replacement Protocol 1 EACH MISC MISCELLANE PRN (13:59)
[2020-06-03] MEDS ORDERED: Potassium Replacement Protocol 1 EACH MISC MISCELLANE PRN (13:59)
[2020-06-03] MEDS ORDERED: ONDANSETRON 4 MG/2 ML VIAL IVP PRN (13:59)
[2020-06-03] MEDS ORDERED: AMIODARONE 300 MG in DEXTROSE 5% IN WATER 250 ML IV PRN ×2 (13:59)
[2020-06-03] MEDS ORDERED: CALCIUM GLUCONATE 2 GM in SODIUM CHLORIDE 0.9% 100 ML IVPB PRN (13:59)
[2020-06-03] MEDS ORDERED: Phosphorus Replacement Protoco 1 EACH MISC MISCELLANE PRN (13:59)
[2020-06-03] MEDS ORDERED: hydrALAZINE HCL 20 MG/ML 1 ML VIAL IVP PRN (13:59)
[2020-06-03] MEDS ORDERED: BENZOCAINE/MENTHOL LOZENG 1 EACH LOZENGE MUCOUS MEM PRN (13:59)
[2020-06-03] MEDS ORDERED: IPRATROPIUM-ALBUTEROL 3 ML NEB INHALATION PRN (13:59)
[2020-06-03] MEDS ORDERED: METOCLOPRAMIDE 5 MG/ML 2 ML VIAL IVP PRN (13:59)
[2020-06-03 14:00] LABS: Glucose,Whole Blood 133 mg/dL (75-99)
[2020-06-03] MEDS ORDERED: INSULIN REGULAR 100 UNIT in SODIUM CHLORIDE 0.9% 100 ML IV SCH (14:30)
[2020-06-03] MEDS ORDERED: CLEVIDIPINE BUTYRATE 25 MG in EMPTY BAG 1 BAG IV SCH (14:30)
[2020-06-03 14:44] LABS: Ionized Calcium 4.9 mg/dL (4.5-5.3)
[2020-06-03] MEDS: LACTATED RINGERS 1,000 ML IV SCH (14:44)
[2020-06-03 14:53] LABS: INR 1.1 (<1.2); Partial Thromboplastin Time 24.6 sec (22.0-30.0); Prothrombin Time 11.2 sec (9.0-12.0)
--- NOTE | 2020-06-03 14:59 | XR ---
EXAMINATION TYPE: XR chest 1V DATE OF EXAM: 06/03/2020 COMPARISON: 06/03/2020 INDICATION: Postop cardiac surgery TECHNIQUE: Single frontal view of the chest is obtained. FINDINGS: The heart size is normal. The pulmonary vasculature is normal. Mild infiltrate is at the right base. Sternotomy wires are present from prior CABG. 2 mediastinal tubes are present. Nasogastric tube trans verses the thorax. Endotracheal tube tip is above the hans. Right central venous catheter tip is in the right atrium. No pneumothorax is evident. IMPRESSION: 1. Mild subsegmental atelectasis right lower lobe. 2. Multiple lines and catheters discussed above
[2020-06-03 15:01] LABS: ABG Base Excess -1.4 mmol/L; ABG HCO3 24 mmol/L (21-25); ABG Oxygen Saturation 99.4 % (94-97); ABG PCO2 40 mmHg (35-45); ABG PH 7.39 (7.35-7.45); ABG PO2 366 mmHg (83-108); ABG TCO2 25 mmol/L (19-24)
--- NOTE | 2020-06-03 15:09 | XR ---
EXAMINATION TYPE: XR chest 1V portable DATE OF EXAM: 06/03/2020 Comparison: 06/03/2020 Clinical History: 60-year-old male Post Operative Cardiac Surgery Findings: ET tube is satisfactory. NG tube courses below the diaphragm. Mediastinal drains are present. No appr eciable pneumothorax. Right IJ [place]-Shabnam catheter is present but the end of the catheter is looped wi thin the right side of the heart. Median sternotomy wires with annuloplasty ring. Mild interstitial p rominence is unchanged. Mild patchy retrocardiac atelectasis. Impression: 1. Right IJ [place]-Shabnam catheter is malpositioned. Looped within the right side of the heart. 2. Moderate interstitial prominence could reflect mild pulmonary vascular congestion. Some patchy ret rocardiac atelectasis remains.
[2020-06-03 15:10] LABS: Basophils % (A) 0 %; Eosinophils % (A) 0 %; HCT 36.6 % (39.0-53.0); HGB 12.2 gm/dL (13.0-17.5); Lymphocytes # (A) 0.8 k/uL (1.0-4.8); Lymphocytes % (A) 7 %; MCH 33.1 pg (25.0-35.0); MCHC 33.2 g/dL (31.0-37.0); MCV 99.6 fL (80.0-100.0); Mean Platelet Volume 8.5; Monocytes # (A) 0.5 k/uL (0-1.0); Monocytes % (A) 4 %; Neutrophils # (A) 10.2 k/uL (1.3-7.7); Neutrophils % (A) 88 %; Platelet Count 129 k/uL (150-450); RBC 3.67 m/uL (4.30-5.90); RDW 12.5 % (11.5-15.5); WBC 11.7 k/uL (3.8-10.6)
[2020-06-03 15:11] LABS: ALT 48 U/L (4-49); AST 77 U/L (17-59); African American GFR (CKD) >90 (>60 ml/min/1.73 sqM); Albumin 2.7 g/dL (3.5-5.0); Alkaline Phosphatase 46 U/L (38-126); Anion Gap 2 mmol/L; Blood Urea Nitrogen 18 mg/dL (9-20); Calcium 7.7 mg/dL (8.4-10.2); Carbon Dioxide 25 mmol/L (22-30); Chloride 108 mmol/L (98-107); Glucose 132 mg/dL (74-99); Magnesium 2.2 mg/dL (1.6-2.3); Non-African American GFR(CKD) >90 (>60 ml/min/1.73 sqM); Potassium 4.2 mmol/L (3.5-5.1); Sodium 135 mmol/L (137-145); Total Protein 4.7 g/dL (6.3-8.2)
--- NOTE | 2020-06-03 15:15 | XR ---
EXAMINATION TYPE: XR chest 1V DATE OF EXAM: 06/03/2020 COMPARISON: 06/03/2020 INDICATION: Postop cardiac surgery TECHNIQUE: Single frontal view of the chest is obtained. FINDINGS: The heart size is upper limits of normal. The pulmonary vasculature is normal. Mild infiltrate remains at the right base Multiple lines and catheters are present. [place]-Shabnam catheter tip appears to be curled within the cliff on of the right atrium. Additional lines are stable in position IMPRESSION: 1. [place]-Shabnam catheter tip appears to be curled within the right atrium. Over 2 additional catheters a nd lines are stable in position. 3. Mild right lower lobe infiltrate
[2020-06-03 15:42] LABS: Glucose,Whole Blood 125 mg/dL (75-99)
[2020-06-03] MEDS: ACETAMINOPHEN IV (For NPO) 1,000 MG in EMPTY BAG 1 BAG IVPB SCH (16:49)
--- NOTE | 2020-06-03 17:02 | OP ---
OPERATIVE REPORT DATE OF THE OPERATION: 06/03/2020. ATTENDING SURGEON: Dr. Mike Carias. EMPLOYMENT MANAGER: Lewis Guillen and Gina Hicks PREOPERATIVE DIAGNOSIS: Severe mitral regurgitation. POSTOPERATIVE DIAGNOSIS: Torn chordae to P2 of the posterior leaflet. PROCEDURES: Complex mitral valve repair with bola cords x3 repair to P2 of the posterior leaflet, closure of a P2, P3 cleft and ring annuloplasty with a 38 mm Teresa physio 2 mitral ring, clip ligation of the left atrial appendage, and intraoperative FAIZA. ANESTHESIA: General. BLOOD LOSS: 500 mL. SUMMARY: The patient brought to the operating room, placed in supine position. Following administration of a general endotracheal anesthetic, placement of arterial line adequate IV access Caro catheter. The patient was carefully prepped and draped in normal sterile fashion using chlorhexidine paint and sterile towels. A midline incision in the chest made sternum divided pericardium was opened heart size was mildly enlarged. Aorta was soft. The patient was heparinized with AST of greater than 480. The aorta and 2 single stage venous cannulas were placed antegrade and retrograde cardioplegic catheters positioned in the ascending aorta and the coronary sinus. Patient was placed on bypass cross-clamp placed heart arrested with 1 L of antegrade followed by 500 mL retrograde cardioplegia retrograde cardioplegia was delivered 3-500 cc at the end of each 20 minute intervals. Preoperative FAIZA confirmed that there was severe flail P2 of the posterior leaflet with a very eccentric jet and only mild left ventricular dysfunction. At this point, the base of the left atrial appendage was measured. A 40 mm AtriClip was secured at the base officially obliterating the left atrial appendage. The left atrium was entered at the junction of the right superior pulmonary vein. A handheld retractor was placed. The mitral valve was identified in the eye and examining the subvalvular apparatus. There was complete torn chordae to P2. The posterior leaflet at this point, using 5-0 [place]-Venkat suture, 3 pairs of bola chords were created between the of the edges of the P2 of the posterior leaflet and the appropriate papillary muscle head. These were measured to the appropriate length and is compared to the chordae and P3 in P1. At this point. it sized to a 38 mm Teresa physio 2 complete ring 2-0 [place]ron, non pledgeted sutures were placed from trigone to trigone and completely encircling the anulus. These were then passed through the physio ring, which was seated and seated well and all sutures were then secured, cut and tied using the cor knot ligature system device where the port was tested with a handheld gulshan and tested well. At this point, the atrium was closed in a double layered pledgeted 4-0 Prolene vertical mattress followed by an [id number] stitch from both sites. The patient was placed head down, complete de-airing maneuvers performed 3 times. One liter of warm blood retrograde cardioplegia was run, cross-clamp was then removed. More de-airing was performed with FAIZA guidance and the patient was ventilated and brought off bypass, came off bypass uneventfully with just a little bit of Primacor and a little bit of Levophed, protamine delivered, patient decannulated. Ventricular pacing wires were placed. Mediastinal and a mediastinal/right pleural chest tube were placed. At this point, the sternum was closed with four #6 sternal wires and two [id number] [place] sternal cable closure devices. Skin and subcutaneous tissue fascia closed in 3 layers. No complications. Patient tolerated the procedure well. Postoperative FAIZA showed good left and right ventricular function. On good coaptation, the with A2 and P2 of the mitral valve. There was a very small trace to 1+ small localized jet at the cleft of P1 and P2, which with be overall a very minimal amount. MMODL / IJN: [id number] / MTDHannah
[2020-06-03] MEDS: KETOROLAC 15 MG/ML 1 ML VIAL IVP SCH (17:03)
[2020-06-03 17:14] LABS: Glucose,Whole Blood 143 mg/dL (75-99)
[2020-06-03 17:30] LABS: ABG Base Excess -1.9 mmol/L; ABG HCO3 23 mmol/L (21-25); ABG Oxygen Saturation 99.4 % (94-97); ABG PCO2 41 mmHg (35-45); ABG PH 7.37 (7.35-7.45); ABG PO2 245 mmHg (83-108); ABG TCO2 25 mmol/L (19-24)
[2020-06-03] MEDS: IPRATROPIUM-ALBUTEROL 3 ML NEB INHALATION SCH ×3 (17:32→21:21)
[2020-06-03 18:43] LABS: Glucose,Whole Blood 149 mg/dL (75-99)
--- NOTE | 2020-06-03 19:40 | P.CNPUL ---
History of Present Illness Consult date: 06/03/20 Requesting physician: Francisco Virgen Reason for consult: other (Critical care management) Chief complaint: Severe eccentric mitral regurgitation with flail posterior leaflet History of present illness: This is a 60-year-old gentleman who follows with Dr. Virgen as his primary care provider. He has a history of retention, hyperlipidemia, daily alcohol use. Last month he was found to have a murmur and an cardiogram revealed severe eccentric mitral regurgitation with flail posterior leaflet. Normal left ventricular systolic function with ejection fraction 50-55%. He had subsequently undergone cardiac catheterization and FAIZA and no significant coronary artery disease. FAIZA did reveal again the severe eccentric mitral regurgitation and severe prolapse of P3 segment and ruptured chordae. He presented here today for elective mitral valve replacement by Dr. Carias. He had undergone a complex mitral valve repair with bola-chords 3 repair to P2 of the posterior leaflet, closure of a P2, P3 cleft and ring annuloplasty with a 38 mm Teresa is CO2 mitral ring. He is seen in the immediate postoperative period in the intensive care unit. Intubated on mechanical ventilator and currently on assist control at a rate of 16, tidal volume 500, FiO2 100% and a PEEP of 5. Initial ABGs revealed a PaO2 of 366, pCO2 of 40 and a pH of 7.39. FiO2 was titrated down to 50%. He is sedated with propofol. [place]-Shabnam catheter was not providing any accurate PA pressures and it was exchanged out by Dr. Fajardo. Still no good readings. It was left in the superior vena cava. Initial chest x-ray revealed it to be curled within the right atrium. Mild right lower lobe infiltrate. Otherwise clear. White count 11.7. Hemoglobin 12.2. Platelet count 129. Sodium 135. Potassium 4.2. Creatinine 0.80. Glucose 149. He did require insulin drip at 2.5 units per hour. Lactated Ringer's at 50 mL per hour. Received his first dose of cefazolin. Review of Systems ROS unobtainable: due to endotracheal tube Past Medical History Past Medical History: Hyperlipidemia, Hypertension Additional Past Medical History / Comment(s): HEART MURMUR History of Any Multi-Drug Resistant Organisms: None Reported Past Surgical History: Heart Catheterization, Orthopedic Surgery, Tonsillectomy Additional Past Surgical History / Comment(s): rt knee ACL. COLONOSCOPY Past Anesthesia/Blood Transfusion Reactions: No Reported Reaction Smoking Status: Never smoker - Past Family History Mother Family Medical History: Cancer Father Family Medical History: AICD/Pacemaker Medications and Allergies Home Medications Medication Instructions Recorded Confirmed Type lisinopriL [Zestril] 10 mg PO DAILY 05/03/20 06/03/20 History Mupirocin [Mupirocin 2%] 1 applic NASAL BID #1 tube 05/26/20 06/03/20 Rx Rosuvastatin Calcium [Crestor] 5 mg PO DAILY 05/27/20 06/03/20 History Allergies Allergy/AdvReac Type Severity Reaction Status Date / Time No Known Allergies Allergy Verified 06/03/20 05:48 Physical Exam Vitals: Vital Signs Temp Pulse Resp BP BP Pulse Ox 06/03/20 05:57 98.7 F 75 18 155/79 156/84 99 Intake and Output 06/03/20 06/03/20 06/03/20 06:59 14:59 22:59 Intake Total 100 2 51.512 Output Total 1999 Balance -1997 51.512 Intake: IV 100 2 Intake, IV Titration 51.512 Amount Insulin Regular 100 unit 5.681 In Sodium Chloride 0.9% 100 ml @ Per Protocol IV .Q0M REGINA Rx#:[id number] propofoL 1,000 mg In 45.831 Empty Bag 1 bag @ Titrate IV .Q0M REGINA Rx#: [id number] Output: Urine 600 Estimated Blood Loss 1400 Other: Weight 102.3 kg GENERAL EXAM: Sedated, intubated 60-year-old gentleman, comfortable in no apparent distress. HEAD: Normocephalic. EYES: Normal reaction of pupils, equal size. NOSE: Clear with pink turbinates. THROAT: No erythema or exudates. NECK: Right-sided [place]-Shabnam catheter in place. No masses, no JVD. CHEST: Sternal dressing dry and intact. Heart Hugger in place. Mediastinal chest tube in place LUNGS: Equal air entry with no crackles, wheeze, rhonchi or dullness. CVS: S1 and S2 normal with no audible murmur, regular rhythm. ABDOMEN: No hepatosplenomegaly, normal bowel sounds, no guarding or rigidity. SPINE: No scoliosis or deformity SKIN: No rashes CENTRAL NERVOUS SYSTEM: Sedated, tone is normal in all 4 extremities. EXTREMITIES: There is no peripheral edema. No clubbing, no cyanosis. Peripheral pulses are intact. Results - Laboratory Findings CBC and BMP: 06/03/20 14:00 06/03/20 14:00 ABG ABG pH 7.37 (7.35-7.45) 06/03/20 17:27 ABG pCO2 41 mmHg (35-45) 06/03/20 17:27 ABG pO2 245 mmHg (83-108) H 06/03/20 17:27 ABG O2 Saturation 99.4 % (94-97) H 06/03/20 17:27 PT/INR, D-dimer PT 11.2 sec (9.0-12.0) 06/03/20 14:00 INR 1.1 (<1.2) 06/03/20 14:00 Abnormal lab findings: Abnormal Labs 05/26/20 06/03/20 06/03/20 11:56 08:54 09:43 WBC RBC Hgb Hct Plt Count Neutrophils # Lymphocytes # ABG pH ABG pCO2 ABG pO2 287 H 255 H ABG HCO3 26 H ABG Total CO2 27 H ABG O2 Saturation 99.9 H 99.9 H ABG Hematocrit ABG Potassium 4.6 H ABG Ionized Calcium 4.3 L ABG Glucose 100 H 102 H ABG Lactic Acid Hemoglobin 12.0 L Sodium Chloride Glucose POC Glucose (mg/dL) Calcium AST Total Protein Albumin Arterial Blood Potassium 4.6 H Arterial Blood Glucose 100 H 102 H Crossmatch See Detail 06/03/20 06/03/20 06/03/20 10:10 10:25 10:28 WBC RBC Hgb Hct Plt Count Neutrophils # Lymphocytes # ABG pH 7.29 L 7.30 L 7.30 L ABG pCO2 53 H 51 H 57 H ABG pO2 326 H >420 H 50 L* ABG HCO3 28 H ABG Total CO2 27 H 26 H 30 H ABG O2 Saturation 100.0 H 100.0 H 83.3 L ABG Hematocrit 33 L ABG Potassium 5.1 H ABG Ionized Calcium 4.2 L 4.4 L 4.3 L ABG Glucose 175 H 152 H 145 H ABG Lactic Acid Hemoglobin 10.8 L 11.7 L 11.5 L Sodium Chloride Glucose POC Glucose (mg/dL) Calcium AST Total Protein Albumin Arterial Blood Potassium 5.1 H Arterial Blood Glucose 175 H 152 H 145 H Crossmatch 06/03/20 06/03/20 06/03/20 10:38 11:08 11:40 WBC RBC Hgb Hct Plt Count Neutrophils # Lymphocytes # ABG pH 7.34 L ABG pCO2 49 H ABG pO2 334 H 368 H 404 H ABG HCO3 26 H 26 H ABG Total CO2 28 H 27 H 26 H ABG O2 Saturation 100.0 H 100.0 H 100.0 H ABG Hematocrit 32 L ABG Potassium ABG Ionized Calcium 4.3 L 4.3 L 4.2 L ABG Glucose 154 H 140 H 121 H ABG Lactic Acid 1.7 H Hemoglobin 11.2 L 11.0 L 10.5 L Sodium Chloride Glucose POC Glucose (mg/dL) Calcium AST Total Protein Albumin Arterial Blood Potassium Arterial Blood Glucose 154 H 140 H 121 H Crossmatch 06/03/20 06/03/20 06/03/20 12:13 12:51 13:58 WBC RBC Hgb Hct Plt Count Neutrophils # Lymphocytes # ABG pH ABG pCO2 ABG pO2 209 H 149 H ABG HCO3 26 H ABG Total CO2 27 H 27 H ABG O2 Saturation 99.9 H 99.5 H ABG Hematocrit 33 L ABG Potassium ABG Ionized Calcium 4.4 L 4.4 L ABG Glucose 114 H 117 H ABG Lactic Acid 1.7 H Hemoglobin 10.7 L 12.1 L Sodium Chloride Glucose POC Glucose (mg/dL) 133 H Calcium AST Total Protein Albumin Arterial Blood Potassium Arterial Blood Glucose 114 H 117 H Crossmatch 06/03/20 06/03/20 06/03/20 14:00 14:00 14:58 WBC 11.7 H RBC 3.67 L Hgb 12.2 L Hct 36.6 L Plt Count 129 L Neutrophils # 10.2 H Lymphocytes # 0.8 L ABG pH ABG pCO2 ABG pO2 366 H ABG HCO3 ABG Total CO2 25 H ABG O2 Saturation 99.4 H ABG Hematocrit ABG Potassium ABG Ionized Calcium ABG Glucose ABG Lactic Acid Hemoglobin Sodium 135 L Chloride 108 H Glucose 132 H POC Glucose (mg/dL) Calcium 7.7 L AST 77 H Total Protein 4.7 L Albumin 2.7 L Arterial Blood Potassium Arterial Blood Glucose Crossmatch 06/03/20 06/03/20 06/03/20 15:39 17:08 17:27 WBC RBC Hgb Hct Plt Count Neutrophils # Lymphocytes # ABG pH ABG pCO2 ABG pO2 245 H ABG HCO3 ABG Total CO2 25 H ABG O2 Saturation 99.4 H ABG Hematocrit ABG Potassium ABG Ionized Calcium ABG Glucose ABG Lactic Acid Hemoglobin Sodium Chloride Glucose POC Glucose (mg/dL) 125 H 143 H Calcium AST Total Protein Albumin Arterial Blood Potassium Arterial Blood Glucose Crossmatch 06/03/20 18:38 WBC RBC Hgb Hct Plt Count Neutrophils # Lymphocytes # ABG pH ABG pCO2 ABG pO2 ABG HCO3 ABG Total CO2 ABG O2 Saturation ABG Hematocrit ABG Potassium ABG Ionized Calcium ABG Glucose ABG Lactic Acid Hemoglobin Sodium Chloride Glucose POC Glucose (mg/dL) 149 H Calcium AST Total Protein Albumin Arterial Blood Potassium Arterial Blood Glucose Crossmatch - Diagnostic Findings Chest x-ray: image reviewed Assessment and Plan Assessment: 1 Severe mitral regurgitation with torn chordae to P2 of the posterior leaflet, status post complex mitral valve repair. Postoperative day #0 2 Mechanical ventilatory support, postoperative, expected outcome of surgery 3 History of hypertension 4 Hyperlipidemia 5 History of daily alcohol use. 6 Nonsmoker Plan: The patient was seen and evaluated by Dr. Fajardo Chest x-ray, ABGs and labs reviewed Ventilator settings adjusted accordingly Plan to extubate within the 6 hour postop window per protocol We will continue to follow and make further recommendations based on his clinical status I, the cosigning physician, performed a history & physical examination of the patient. Lungs sounds are clear. Mediastinal chest tubes in place. Maintaining good O2 saturations in the 90s on the mechanical ventilator currently at 50% FiO2. I discussed the assessment and plan of care with my nurse practitioner, Smitha Schuster. I attest to the above note as dictated by her. Time with Patient: Greater than 30
[2020-06-03 19:48] LABS: Basophils % (A) 0 %; Eosinophils % (A) 0 %; HGB 12.7 gm/dL (13.0-17.5); Lymphocytes # (A) 0.6 k/uL (1.0-4.8); Lymphocytes % (A) 5 %; MCHC 34.3 g/dL (31.0-37.0); MCV 98.9 fL (80.0-100.0); Mean Platelet Volume 8.1; Monocytes # (A) 0.7 k/uL (0-1.0); Monocytes % (A) 6 %; Neutrophils # (A) 10.4 k/uL (1.3-7.7); Neutrophils % (A) 88 %; Platelet Count 136 k/uL (150-450); RBC 3.74 m/uL (4.30-5.90); RDW 11.9 % (11.5-15.5); WBC 11.8 k/uL (3.8-10.6)
[2020-06-03 19:55] LABS: Glucose,Whole Blood 145 mg/dL (75-99)
[2020-06-03] MEDS ORDERED: MUPIROCIN 2% OINT 22 GM TUBE NASAL ONE (20:45)
[2020-06-03 20:51] LABS: Glucose,Whole Blood 132 mg/dL (75-99)
[2020-06-03 21:05] LABS: Basophils % (A) 0 %; Eosinophils % (A) 0 %; HCT 36.7 % (39.0-53.0); HGB 12.7 gm/dL (13.0-17.5); Lymphocytes # (A) 0.5 k/uL (1.0-4.8); Lymphocytes % (A) 5 %; MCHC 34.7 g/dL (31.0-37.0); MCV 98.1 fL (80.0-100.0); Mean Platelet Volume 9.2; Monocytes # (A) 0.7 k/uL (0-1.0); Monocytes % (A) 6 %; Neutrophils # (A) 9.6 k/uL (1.3-7.7); Neutrophils % (A) 88 %; Platelet Count 121 k/uL (150-450); RBC 3.74 m/uL (4.30-5.90); RDW 11.7 % (11.5-15.5); WBC 10.9 k/uL (3.8-10.6)
[2020-06-03] MEDS ORDERED: DEXTROSE 5% IN WATER 100 ML with AMIODARONE 150 MG IV ONE (21:30)
[2020-06-03] MEDS: METOPROLOL TARTRATE 25 MG TAB PO SCH (21:56)
[2020-06-03] MEDS: HEPARIN SODIUM,PORCINE 5,000 UNIT/ML 1 ML VIAL SQ SCH (22:04)
[2020-06-03 22:12] LABS: Glucose,Whole Blood 152 mg/dL (75-99)
[2020-06-03] MEDS: AMIODARONE 200 MG TAB PO SCH (22:15)
[2020-06-03 23:06] LABS: Glucose,Whole Blood 135 mg/dL (75-99)
[2020-06-04] MEDS: ACETAMINOPHEN IV (For NPO) 1,000 MG in EMPTY BAG 1 BAG IVPB SCH (00:15)
[2020-06-04] MEDS: KETOROLAC 15 MG/ML 1 ML VIAL IVP SCH ×4 (00:17→18:28)
[2020-06-04 00:31] LABS: Glucose,Whole Blood 132 mg/dL (75-99)
--- NOTE | 2020-06-04 00:38 | P.CONS ---
History of Present Illness - Reason for Consult Consult date: 06/03/20 Medical management Requesting physician: Mike Carias - Chief Complaint Post mitral valve repair, hypertension, hyperlipidemia and BPH - History of Present Illness 60-year-old male one of my office patient with past medical history of hypertension hyperlipidemia who was found 4 weeks ago to have severe mitral regurgitation with flail posterior leaflet of the mitral valve initially was diagnosed clinically with a loud murmur echocardiogram was performed and showed the severity of the mitral regurgitation. 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 Patient had no coronary artery disease on heart catheter. Patient was referred to cardiothoracic surgery seen Dr. Carias and ended up coming for mitral valve repair and ring annuloplasty. Post surgery he was on mechanical ventilation and shortly after was extubated successfully with no major complication. Patient had chest tube otherwise hemodynamically stable. Review of Systems CONSTITUTIONAL: Well-developed no acute respiratory distress. EYES: No icterus sclerae, no conjunctivitis. EARS, NOSE, MOUTH, THROAT, and FACE: No sore throat, lymphadenopathy, carotid bruits or deformity. RESPIRATORY: Mild shortness of breath exertion, 2 chest tube post extubation after surgery. CARDIOVASCULAR: No CP, Palpitation, PND, Orthopnea, or angina. Post mitral valve repair with annuloplasty GASTROINTESTINAL: No Abd pain, Nausea or vomiting, no Diarrhea or constipation, No GI Bleed, no distention or masses. GENITOURINARY: Negative for Hematuria or UTI, no kidney stones. INTEGUMENT/BREAST: Negative for any muscular injury with mild osteoarthritis.. HEMATOLOGIC/LYMPHATIC: Negative for bleed or purpura. MUSCULOSKELTAL: Negative for Myalgia or arthralgia. NEURLOGICAL: No LOC, Sz or syncope, blurred vision dizziness or abnormality.. BEHAVIORAL/PSYCH: Negative. ENDOCRINE: Negative. Past Medical History Past Medical History: Hyperlipidemia, Hypertension Additional Past Medical History / Comment(s): HEART MURMUR History of Any Multi-Drug Resistant Organisms: None Reported Past Surgical History: Heart Catheterization, Orthopedic Surgery, Tonsillectomy Additional Past Surgical History / Comment(s): rt knee ACL. COLONOSCOPY Past Anesthesia/Blood Transfusion Reactions: No Reported Reaction Smoking Status: Never smoker - Past Family History Mother Family Medical History: Cancer Father Family Medical History: AICD/Pacemaker Medications and Allergies Home Medications Medication Instructions Recorded Confirmed Type lisinopriL [Zestril] 10 mg PO DAILY 05/03/20 06/03/20 History Mupirocin [Mupirocin 2%] 1 applic NASAL BID #1 tube 05/26/20 06/03/20 Rx Rosuvastatin Calcium [Crestor] 5 mg PO DAILY 05/27/20 06/03/20 History Allergies Allergy/AdvReac Type Severity Reaction Status Date / Time No Known Allergies Allergy Verified 06/03/20 05:48 Physical Exam Vitals: Vital Signs Temp Pulse Resp BP BP Pulse Ox 06/03/20 05:57 98.7 F 75 18 155/79 156/84 99 Intake and Output 06/03/20 06/03/20 06/03/20 06:59 14:59 22:59 Intake Total 100 2 25.271 Output Total 1999 Balance 100 -1997 25.271 Intake: IV 100 2 Intake, IV Titration 25.271 Amount Insulin Regular 100 unit 1.742 In Sodium Chloride 0.9% 100 ml @ Per Protocol IV .Q0M REGINA Rx#:[id number] propofoL 1,000 mg In 23.529 Empty Bag 1 bag @ Titrate IV .Q0M REGINA Rx#: [id number] Output: Urine 600 Estimated Blood Loss 1400 Other: Weight 102.3 kg General Appearance: Alert, cooperative, no distress, appears stated age. Neck HEENT: Supple, no lymphadenopathy, no thyroid enlargement, no carotid bruits. Lungs: Decreased breath sounds specially in the left side no crackles or wheezes. Chest Wall: Decrease expansion with deep inspiration , incision in the midline looks fine with no bleed, still have 2 chest tube Heart: Regular rate and rhythm, S1, S2 normal, no murmur, rub or gallop. Back: Symmetric, no curvature, ROM normal, no CVA tenderness. Abdomen: Soft, non-tender, bowel sounds active all four quadrants, no masses, no organomegaly. Extremities: Extremities normal, atraumatic, no cyanosis or edema. Pulses: 2+ and symmetric. Skin: Skin color, texture, tugor normal, no rashes or lesions. Neurologic: Alert oriented x3 cranial nerves II through XII intact, no motor deficit, no abnormal balance or gait. Results CBC & Chem 7: 06/03/20 20:50 06/03/20 14:00 Labs: Abnormal Lab Results - Last 24 Hours (Table) 05/26/20 06/03/20 06/03/20 Range/Units 11:56 08:54 09:43 WBC (3.8-10.6) k/uL RBC (4.30-5.90) m/uL Hgb (13.0-17.5) gm/dL Hct (39.0-53.0) % Plt Count (150-450) k/uL Neutrophils # (1.3-7.7) k/uL Lymphocytes # (1.0-4.8) k/uL ABG pH (7.35-7.45) ABG pCO2 (35-45) mmHg ABG pO2 287 H 255 H (83-108) mmHg ABG HCO3 26 H (21-25) mmol/L ABG Total CO2 27 H (19-24) mmol/L ABG O2 Saturation 99.9 H 99.9 H (94-97) % ABG Hematocrit (34.0-46.0) % ABG Potassium 4.6 H (3.4-4.5) mmol/L ABG Ionized Calcium 4.3 L (4.5-5.3) mg/dL ABG Glucose 100 H 102 H (75-99) mg/dL ABG Lactic Acid (0.5-1.6) mmol/L Hemoglobin 12.0 L (13.0-17.5) gm/dL Sodium (137-145) mmol/L Chloride (98-107) mmol/L Glucose (74-99) mg/dL POC Glucose (mg/dL) (75-99) mg/dL Calcium (8.4-10.2) mg/dL AST (17-59) U/L Total Protein (6.3-8.2) g/dL Albumin (3.5-5.0) g/dL Arterial Blood Potassium 4.6 H (3.4-4.5) mmol/L Arterial Blood Glucose 100 H 102 H (75-99) mg/dL Crossmatch See Detail 06/03/20 06/03/20 06/03/20 Range/Units 10:10 10:25 10:28 WBC (3.8-10.6) k/uL RBC (4.30-5.90) m/uL Hgb (13.0-17.5) gm/dL Hct (39.0-53.0) % Plt Count (150-450) k/uL Neutrophils # (1.3-7.7) k/uL Lymphocytes # (1.0-4.8) k/uL ABG pH 7.29 L 7.30 L 7.30 L (7.35-7.45) ABG pCO2 53 H 51 H 57 H (35-45) mmHg ABG pO2 326 H >420 H 50 L* (83-108) mmHg ABG HCO3 28 H (21-25) mmol/L ABG Total CO2 27 H 26 H 30 H (19-24) mmol/L ABG O2 Saturation 100.0 H 100.0 H 83.3 L (94-97) % ABG Hematocrit 33 L (34.0-46.0) % ABG Potassium 5.1 H (3.4-4.5) mmol/L ABG Ionized Calcium 4.2 L 4.4 L 4.3 L (4.5-5.3) mg/dL ABG Glucose 175 H 152 H 145 H (75-99) mg/dL ABG Lactic Acid (0.5-1.6) mmol/L Hemoglobin 10.8 L 11.7 L 11.5 L (13.0-17.5) gm/dL Sodium (137-145) mmol/L Chloride (98-107) mmol/L Glucose (74-99) mg/dL POC Glucose (mg/dL) (75-99) mg/dL Calcium (8.4-10.2) mg/dL AST (17-59) U/L Total Protein (6.3-8.2) g/dL Albumin (3.5-5.0) g/dL Arterial Blood Potassium 5.1 H (3.4-4.5) mmol/L Arterial Blood Glucose 175 H 152 H 145 H (75-99) mg/dL Crossmatch 06/03/20 06/03/20 06/03/20 Range/Units 10:38 11:08 11:40 WBC (3.8-10.6) k/uL RBC (4.30-5.90) m/uL Hgb (13.0-17.5) gm/dL Hct (39.0-53.0) % Plt Count (150-450) k/uL Neutrophils # (1.3-7.7) k/uL Lymphocytes # (1.0-4.8) k/uL ABG pH 7.34 L (7.35-7.45) ABG pCO2 49 H (35-45) mmHg ABG pO2 334 H 368 H 404 H (83-108) mmHg ABG HCO3 26 H 26 H (21-25) mmol/L ABG Total CO2 28 H 27 H 26 H (19-24) mmol/L ABG O2 Saturation 100.0 H 100.0 H 100.0 H (94-97) % ABG Hematocrit 32 L (34.0-46.0) % ABG Potassium (3.4-4.5) mmol/L ABG Ionized Calcium 4.3 L 4.3 L 4.2 L (4.5-5.3) mg/dL ABG Glucose 154 H 140 H 121 H (75-99) mg/dL ABG Lactic Acid 1.7 H (0.5-1.6) mmol/L Hemoglobin 11.2 L 11.0 L 10.5 L (13.0-17.5) gm/dL Sodium (137-145) mmol/L Chloride (98-107) mmol/L Glucose (74-99) mg/dL POC Glucose (mg/dL) (75-99) mg/dL Calcium (8.4-10.2) mg/dL AST (17-59) U/L Total Protein (6.3-8.2) g/dL Albumin (3.5-5.0) g/dL Arterial Blood Potassium (3.4-4.5) mmol/L Arterial Blood Glucose 154 H 140 H 121 H (75-99) mg/dL Crossmatch 06/03/20 06/03/20 06/03/20 Range/Units 12:13 12:51 13:58 WBC (3.8-10.6) k/uL RBC (4.30-5.90) m/uL Hgb (13.0-17.5) gm/dL Hct (39.0-53.0) % Plt Count (150-450) k/uL Neutrophils # (1.3-7.7) k/uL Lymphocytes # (1.0-4.8) k/uL ABG pH (7.35-7.45) ABG pCO2 (35-45) mmHg ABG pO2 209 H 149 H (83-108) mmHg ABG HCO3 26 H (21-25) mmol/L ABG Total CO2 27 H 27 H (19-24) mmol/L ABG O2 Saturation 99.9 H 99.5 H (94-97) % ABG Hematocrit 33 L (34.0-46.0) % ABG Potassium (3.4-4.5) mmol/L ABG Ionized Calcium 4.4 L 4.4 L (4.5-5.3) mg/dL ABG Glucose 114 H 117 H (75-99) mg/dL ABG Lactic Acid 1.7 H (0.5-1.6) mmol/L Hemoglobin 10.7 L 12.1 L (13.0-17.5) gm/dL Sodium (137-145) mmol/L Chloride (98-107) mmol/L Glucose (74-99) mg/dL POC Glucose (mg/dL) 133 H (75-99) mg/dL Calcium (8.4-10.2) mg/dL AST (17-59) U/L Total Protein (6.3-8.2) g/dL Albumin (3.5-5.0) g/dL Arterial Blood Potassium (3.4-4.5) mmol/L Arterial Blood Glucose 114 H 117 H (75-99) mg/dL Crossmatch 06/03/20 06/03/20 06/03/20 Range/Units 14:00 14:00 14:58 WBC 11.7 H (3.8-10.6) k/uL RBC 3.67 L (4.30-5.90) m/uL Hgb 12.2 L (13.0-17.5) gm/dL Hct 36.6 L (39.0-53.0) % Plt Count 129 L (150-450) k/uL Neutrophils # 10.2 H (1.3-7.7) k/uL Lymphocytes # 0.8 L (1.0-4.8) k/uL ABG pH (7.35-7.45) ABG pCO2 (35-45) mmHg ABG pO2 366 H (83-108) mmHg ABG HCO3 (21-25) mmol/L ABG Total CO2 25 H (19-24) mmol/L ABG O2 Saturation 99.4 H (94-97) % ABG Hematocrit (34.0-46.0) % ABG Potassium (3.4-4.5) mmol/L ABG Ionized Calcium (4.5-5.3) mg/dL ABG Glucose (75-99) mg/dL ABG Lactic Acid (0.5-1.6) mmol/L Hemoglobin (13.0-17.5) gm/dL Sodium 135 L (137-145) mmol/L Chloride 108 H (98-107) mmol/L Glucose 132 H (74-99) mg/dL POC Glucose (mg/dL) (75-99) mg/dL Calcium 7.7 L (8.4-10.2) mg/dL AST 77 H (17-59) U/L Total Protein 4.7 L (6.3-8.2) g/dL Albumin 2.7 L (3.5-5.0) g/dL Arterial Blood Potassium (3.4-4.5) mmol/L Arterial Blood Glucose (75-99) mg/dL Crossmatch 06/03/20 Range/Units 15:39 WBC (3.8-10.6) k/uL RBC (4.30-5.90) m/uL Hgb (13.0-17.5) gm/dL Hct (39.0-53.0) % Plt Count (150-450) k/uL Neutrophils # (1.3-7.7) k/uL Lymphocytes # (1.0-4.8) k/uL ABG pH (7.35-7.45) ABG pCO2 (35-45) mmHg ABG pO2 (83-108) mmHg ABG HCO3 (21-25) mmol/L ABG Total CO2 (19-24) mmol/L ABG O2 Saturation (94-97) % ABG Hematocrit (34.0-46.0) % ABG Potassium (3.4-4.5) mmol/L ABG Ionized Calcium (4.5-5.3) mg/dL ABG Glucose (75-99) mg/dL ABG Lactic Acid (0.5-1.6) mmol/L Hemoglobin (13.0-17.5) gm/dL Sodium (137-145) mmol/L Chloride (98-107) mmol/L Glucose (74-99) mg/dL POC Glucose (mg/dL) 125 H (75-99) mg/dL Calcium (8.4-10.2) mg/dL AST (17-59) U/L Total Protein (6.3-8.2) g/dL Albumin (3.5-5.0) g/dL Arterial Blood Potassium (3.4-4.5) mmol/L Arterial Blood Glucose (75-99) mg/dL Crossmatch Assessment and Plan Assessment: 1 post mitral valve repair of the posterior leaflet with valve annuloplasty: Patient is doing well so far was extubated successfully is off mechanical vent ilation and hemodynamically stable pain is under control. 2 hypertension: Was well controlled on lisinopril 10 mg a day. 3 hyperlipidemia: Was on Crestor which should be started in the next 24 hours. 4 BPH: Watch for any urinary retention. 5 severe dyspnea: Was mostly secondary to severe mitral regurgitation and flail valve should improve after surgery. 6 post surgery mechanical ventilation: With successful extubation shortly after surgery with no complications so far. 7 hyperglycemia: Watch for any elevated sugar above 120 patient can be kept on insulin drip and then switched to Accu-Chek with sliding scales coverage. CODE STATUS: Full code Dr. Carias thank you very much for the consult if I can be any further help to please let me know.
[2020-06-04 01:04] LABS: Glucose,Whole Blood 127 mg/dL (75-99)
[2020-06-04] MEDS ORDERED: HYDROcodone/APAP 5-325MG 1 EACH TAB PO PRN (02:02)
[2020-06-04 02:09] LABS: Glucose,Whole Blood 126 mg/dL (75-99)
[2020-06-04 03:30] LABS: Glucose,Whole Blood 120 mg/dL (75-99)
[2020-06-04 04:41] LABS: Glucose,Whole Blood 126 mg/dL (75-99)
[2020-06-04 04:49] LABS: Basophils % (A) 0 %; Eosinophils # (A) 0.1 k/uL (0-0.7); Eosinophils % (A) 1 %; HCT 37.8 % (39.0-53.0); HGB 12.3 gm/dL (13.0-17.5); Lymphocytes # (A) 0.8 k/uL (1.0-4.8); Lymphocytes % (A) 8 %; MCH 32.5 pg (25.0-35.0); MCHC 32.6 g/dL (31.0-37.0); MCV 99.8 fL (80.0-100.0); Mean Platelet Volume 9.3; Monocytes # (A) 0.8 k/uL (0-1.0); Monocytes % (A) 7 %; Neutrophils # (A) 8.9 k/uL (1.3-7.7); Neutrophils % (A) 83 %; Platelet Count 146 k/uL (150-450); RBC 3.79 m/uL (4.30-5.90); RDW 12.5 % (11.5-15.5); WBC 10.7 k/uL (3.8-10.6)
[2020-06-04 05:05] LABS: Glucose,Whole Blood 127 mg/dL (75-99)
[2020-06-04 05:11] LABS: Ionized Calcium 4.8 mg/dL (4.5-5.3)
[2020-06-04 05:42] LABS: ALT 45 U/L (4-49); AST 81 U/L (17-59); African American GFR (CKD) >90 (>60 ml/min/1.73 sqM); Albumin 3.1 g/dL (3.5-5.0); Alkaline Phosphatase 42 U/L (38-126); Anion Gap 1 mmol/L; Blood Urea Nitrogen 20 mg/dL (9-20); Carbon Dioxide 27 mmol/L (22-30); Chloride 105 mmol/L (98-107); Glucose 123 mg/dL (74-99); Magnesium 2.2 mg/dL (1.6-2.3); Non-African American GFR(CKD) >90 (>60 ml/min/1.73 sqM); Potassium 4.5 mmol/L (3.5-5.1); Sodium 133 mmol/L (137-145); Total Bilirubin 0.9 mg/dL (0.2-1.3); Total Protein 5.3 g/dL (6.3-8.2)
[2020-06-04 06:51] LABS: Glucose,Whole Blood 134 mg/dL (75-99)
--- NOTE | 2020-06-04 07:57 | P.PN ---
Subjective Progress Note Date: 06/04/20 Principal diagnosis: Severe mitral valve regurgitation with flail leaflet This is a 60-year-old gentleman who follows with Dr. Virgen as his primary care provider. He has a history of retention, hyperlipidemia, daily alcohol use. Last month he was found to have a murmur and an cardiogram revealed severe eccentric mitral regurgitation with flail posterior leaflet. Normal left ventricular systolic function with ejection fraction 50-55%. He had subsequently undergone cardiac catheterization and FAIZA and no significant coronary artery disease. FAIZA did reveal again the severe eccentric mitral regurgitation and severe prolapse of P3 segment and ruptured chordae. He presented here today for elective mitral valve replacement by Dr. Carias. He had undergone a complex mitral valve repair with bola-chords 3 repair to P2 of the posterior leaflet, closure of a P2, P3 cleft and ring annuloplasty with a 38 mm Teresa is CO2 mitral ring. He is seen in the immediate postoperative period in the intensive care unit. Intubated on mechanical ventilator and currently on assist control at a rate of 16, tidal volume 500, FiO2 100% and a PEEP of 5. Initial ABGs revealed a PaO2 of 366, pCO2 of 40 and a pH of 7.39. FiO2 was titrated down to 50%. He is sedated with propofol. Beaumont-Shabnam catheter was not providing any accurate PA pressures and it was exchanged out by Dr. Fajardo. Still no good readings. It was left in the superior vena cava. Initial chest x-ray revealed it to be curled within the right atrium. Mild right lower lobe infiltrate. Otherwise clear. White count 11.7. Hemoglobin 12.2. Platelet count 129. Sodium 135. Potassium 4.2. Creatinine 0.80. Glucose 149. He did require insulin drip at 2.5 units per hour. Lactated Ringer's at 50 mL per hour . Received his first dose of cefazolin. The patient is seen today 06/04/2020 in follow-up on the intensive care unit. He is currently sitting up in a chair at the bedside. He is awake and alert in no distress. He is presently afebrile. Hemodynamically stable. Maintaining O2 saturations in the mid 90s on 2 L/m per nasal cannula. Chest x-ray reveals some atelectatic changes at the bases more so on the left. Chest tubes remain in place with 800 ML's out since surgery. White count 10.7. Hemoglobin 12.3. Platelets 146. Sodium 133. Potassium 4.5. Creatinine 0.76. He remains on cefazolin. Insulin drip at 1.5 units per hour. Lactated Ringer's at 50 MLS per hour. Working well with the incentive spirometer. Objective - Vital Signs Vital signs: Vital Signs Temp 98.8 F 06/04/20 05:00 Pulse 76 06/04/20 07:00 Resp 26 H 06/04/20 07:00 BP 118/73 06/04/20 04:30 Pulse Ox 95 06/04/20 07:00 Intake & Output 06/03/20 06/04/20 06/04/20 18:59 06:59 18:59 Intake Total 453.512 912.626 50 Output Total 2835 630 195 Balance -2381.488 282.626 -145 Intake: IV 402 900 50 ACETAMINOPHEN IV (For NPO 100 100 ) 1,000 mg In Empty Bag 1 bag @ 400 mls/hr IVPB Q6HR RE[facility] Rx#:[id number] Amiodarone Bolus 100 Lactated Ringers 1,000 ml 200 600 50 @ 20 mls/hr IV .Q24H REGINA Rx#:[id number] ceFAZolin 2 gm In Sodium 100 100 Chloride 0.9% 50 ml @ 100 mls/hr IVPB Q8HR REGINA Rx# :[id number] Intake, IV Titration 51.512 12.626 Amount Insulin Regular 100 unit 5.681 12.626 In Sodium Chloride 0.9% 100 ml @ Per Protocol IV .Q0M RE[facility]A Rx#:[id number] propofoL 1,000 mg In 45.831 Empty Bag 1 bag @ Titrate IV .Q0M REGINA Rx#: [id number] Output: Chest Tube Drainage 500 110 160 Chest Tube Mediastinal 500 110 160 Urine 935 520 35 Estimated Blood Loss 1400 Other: Voiding Method Indwelling Catheter Indwelling Catheter # Voids 40 ABP, PAP, CO, CI - Last Documented Arterial Blood Pressure 132/56 Pulmonary Artery Pressure 24/9 Cardiac Output 6.7 Cardiac Index 2.9 - Exam GENERAL EXAM: Alert, very pleasant 6-year-old gentleman, currently sitting up in chair at bedside, on 2 L nasal cannula, comfortable in no apparent distress. HEAD: Normocephalic. EYES: Normal reaction of pupils, equal size. NOSE: Clear with pink turbinates. THROAT: No erythema or exudates. NECK: No masses, no JVD. CHEST: Sternal dressing dry and intact. Heart Hugger in place. Chest tubes in place. LUNGS: Equal air entry with faint crackles in the posterior bases. CVS: S1 and S2 normal with no audible murmur, regular rhythm. ABDOMEN: No hepatosplenomegaly, normal bowel sounds, no guarding or rigidity. SPINE: No scoliosis or deformity SKIN: No rashes CENTRAL NERVOUS SYSTEM: No focal deficits, tone is normal in all 4 extremities. EXTREMITIES: There is no peripheral edema. No clubbing, no cyanosis. Peripheral pulses are intact. - Labs CBC & Chem 7: 06/04/20 04:35 06/04/20 04:35 Labs: Abnormal Lab Results - Last 24 Hours (Table) 05/26/20 06/03/20 06/03/20 Range/Units 11:56 08:54 09:43 WBC (3.8-10.6) k/uL RBC (4.30-5.90) m/uL Hgb (13.0-17.5) gm/dL Hct (39.0-53.0) % Plt Count (150-450) k/uL Neutrophils # (1.3-7.7) k/uL Lymphocytes # (1.0-4.8) k/uL ABG pH (7.35-7.45) ABG pCO2 (35-45) mmHg ABG pO2 287 H 255 H (83-108) mmHg ABG HCO3 26 H (21-25) mmol/L ABG Total CO2 27 H (19-24) mmol/L ABG O2 Saturation 99.9 H 99.9 H (94-97) % ABG Hematocrit (34.0-46.0) % ABG Potassium 4.6 H (3.4-4.5) mmol/L ABG Ionized Calcium 4.3 L (4.5-5.3) mg/dL ABG Glucose 100 H 102 H (75-99) mg/dL ABG Lactic Acid (0.5-1.6) mmol/L Hemoglobin 12.0 L (13.0-17.5) gm/dL Sodium (137-145) mmol/L Chloride (98-107) mmol/L Glucose (74-99) mg/dL POC Glucose (mg/dL) (75-99) mg/dL Calcium (8.4-10.2) mg/dL AST (17-59) U/L Total Protein (6.3-8.2) g/dL Albumin (3.5-5.0) g/dL Arterial Blood Potassium 4.6 H (3.4-4.5) mmol/L Arterial Blood Glucose 100 H 102 H (75-99) mg/dL Crossmatch See Detail 06/03/20 06/03/20 06/03/20 Range/Units 10:10 10:25 10:28 WBC (3.8-10.6) k/uL RBC (4.30-5.90) m/uL Hgb (13.0-17.5) gm/dL Hct (39.0-53.0) % Plt Count (150-450) k/uL Neutrophils # (1.3-7.7) k/uL Lymphocytes # (1.0-4.8) k/uL ABG pH 7.29 L 7.30 L 7.30 L (7.35-7.45) ABG pCO2 53 H 51 H 57 H (35-45) mmHg ABG pO2 326 H >420 H 50 L* (83-108) mmHg ABG HCO3 28 H (21-25) mmol/L ABG Total CO2 27 H 26 H 30 H (19-24) mmol/L ABG O2 Saturation 100.0 H 100.0 H 83.3 L (94-97) % ABG Hematocrit 33 L (34.0-46.0) % ABG Potassium 5.1 H (3.4-4.5) mmol/L ABG Ionized Calcium 4.2 L 4.4 L 4.3 L (4.5-5.3) mg/dL ABG Glucose 175 H 152 H 145 H (75-99) mg/dL ABG Lactic Acid (0.5-1.6) mmol/L Hemoglobin 10.8 L 11.7 L 11.5 L (13.0-17.5) gm/dL Sodium (137-145) mmol/L Chloride (98-107) mmol/L Glucose (74-99) mg/dL POC Glucose (mg/dL) (75-99) mg/dL Calcium (8.4-10.2) mg/dL AST (17-59) U/L Total Protein (6.3-8.2) g/dL Albumin (3.5-5.0) g/dL Arterial Blood Potassium 5.1 H (3.4-4.5) mmol/L Arterial Blood Glucose 175 H 152 H 145 H (75-99) mg/dL Crossmatch 06/03/20 06/03/20 06/03/20 Range/Units 10:38 11:08 11:40 WBC (3.8-10.6) k/uL RBC (4.30-5.90) m/uL Hgb (13.0-17.5) gm/dL Hct (39.0-53.0) % Plt Count (150-450) k/uL Neutrophils # (1.3-7.7) k/uL Lymphocytes # (1.0-4.8) k/uL ABG pH 7.34 L (7.35-7.45) ABG pCO2 49 H (35-45) mmHg ABG pO2 334 H 368 H 404 H (83-108) mmHg ABG HCO3 26 H 26 H (21-25) mmol/L ABG Total CO2 28 H 27 H 26 H (19-24) mmol/L ABG O2 Saturation 100.0 H 100.0 H 100.0 H (94-97) % ABG Hematocrit 32 L (34.0-46.0) % ABG Potassium (3.4-4.5) mmol/L ABG Ionized Calcium 4.3 L 4.3 L 4.2 L (4.5-5.3) mg/dL ABG Glucose 154 H 140 H 121 H (75-99) mg/dL ABG Lactic Acid 1.7 H (0.5-1.6) mmol/L Hemoglobin 11.2 L 11.0 L 10.5 L (13.0-17.5) gm/dL Sodium (137-145) mmol/L Chloride (98-107) mmol/L Glucose (74-99) mg/dL POC Glucose (mg/dL) (75-99) mg/dL Calcium (8.4-10.2) mg/dL AST (17-59) U/L Total Protein (6.3-8.2) g/dL Albumin (3.5-5.0) g/dL Arterial Blood Potassium (3.4-4.5) mmol/L Arterial Blood Glucose 154 H 140 H 121 H (75-99) mg/dL Crossmatch 06/03/20 06/03/20 06/03/20 Range/Units 12:13 12:51 13:58 WBC (3.8-10.6) k/uL RBC (4.30-5.90) m/uL Hgb (13.0-17.5) gm/dL Hct (39.0-53.0) % Plt Count (150-450) k/uL Neutrophils # (1.3-7.7) k/uL Lymphocytes # (1.0-4.8) k/uL ABG pH (7.35-7.45) ABG pCO2 (35-45) mmHg ABG pO2 209 H 149 H (83-108) mmHg ABG HCO3 26 H (21-25) mmol/L ABG Total CO2 27 H 27 H (19-24) mmol/L ABG O2 Saturation 99.9 H 99.5 H (94-97) % ABG Hematocrit 33 L (34.0-46.0) % ABG Potassium (3.4-4.5) mmol/L ABG Ionized Calcium 4.4 L 4.4 L (4.5-5.3) mg/dL ABG Glucose 114 H 117 H (75-99) mg/dL ABG Lactic Acid 1.7 H (0.5-1.6) mmol/L Hemoglobin 10.7 L 12.1 L (13.0-17.5) gm/dL Sodium (137-145) mmol/L Chloride (98-107) mmol/L Glucose (74-99) mg/dL POC Glucose (mg/dL) 133 H (75-99) mg/dL Calcium (8.4-10.2) mg/dL AST (17-59) U/L Total Protein (6.3-8.2) g/dL Albumin (3.5-5.0) g/dL Arterial Blood Potassium (3.4-4.5) mmol/L Arterial Blood Glucose 114 H 117 H (75-99) mg/dL Crossmatch 06/03/20 06/03/20 06/03/20 Range/Units 14:00 14:00 14:58 WBC 11.7 H (3.8-10.6) k/uL RBC 3.67 L (4.30-5.90) m/uL Hgb 12.2 L (13.0-17.5) gm/dL Hct 36.6 L (39.0-53.0) % Plt Count 129 L (150-450) k/uL Neutrophils # 10.2 H (1.3-7.7) k/uL Lymphocytes # 0.8 L (1.0-4.8) k/uL ABG pH (7.35-7.45) ABG pCO2 (35-45) mmHg ABG pO2 366 H (83-108) mmHg ABG HCO3 (21-25) mmol/L ABG Total CO2 25 H (19-24) mmol/L ABG O2 Saturation 99.4 H (94-97) % ABG Hematocrit (34.0-46.0) % ABG Potassium (3.4-4.5) mmol/L ABG Ionized Calcium (4.5-5.3) mg/dL ABG Glucose (75-99) mg/dL ABG Lactic Acid (0.5-1.6) mmol/L Hemoglobin (13.0-17.5) gm/dL Sodium 135 L (137-145) mmol/L Chloride 108 H (98-107) mmol/L Glucose 132 H (74-99) mg/dL POC Glucose (mg/dL) (75-99) mg/dL Calcium 7.7 L (8.4-10.2) mg/dL AST 77 H (17-59) U/L Total Protein 4.7 L (6.3-8.2) g/dL Albumin 2.7 L (3.5-5.0) g/dL Arterial Blood Potassium (3.4-4.5) mmol/L Arterial Blood Glucose (75-99) mg/dL Crossmatch 06/03/20 06/03/20 06/03/20 Range/Units 15:39 17:08 17:27 WBC (3.8-10.6) k/uL RBC (4.30-5.90) m/uL Hgb (13.0-17.5) gm/dL Hct (39.0-53.0) % Plt Count (150-450) k/uL Neutrophils # (1.3-7.7) k/uL Lymphocytes # (1.0-4.8) k/uL ABG pH (7.35-7.45) ABG pCO2 (35-45) mmHg ABG pO2 245 H (83-108) mmHg ABG HCO3 (21-25) mmol/L ABG Total CO2 25 H (19-24) mmol/L ABG O2 Saturation 99.4 H (94-97) % ABG Hematocrit (34.0-46.0) % ABG Potassium (3.4-4.5) mmol/L ABG Ionized Calcium (4.5-5.3) mg/dL ABG Glucose (75-99) mg/dL ABG Lactic Acid (0.5-1.6) mmol/L Hemoglobin (13.0-17.5) gm/dL Sodium (137-145) mmol/L Chloride (98-107) mmol/L Glucose (74-99) mg/dL POC Glucose (mg/dL) 125 H 143 H (75-99) mg/dL Calcium (8.4-10.2) mg/dL AST (17-59) U/L Total Protein (6.3-8.2) g/dL Albumin (3.5-5.0) g/dL Arterial Blood Potassium (3.4-4.5) mmol/L Arterial Blood Glucose (75-99) mg/dL Crossmatch 06/03/20 06/03/20 06/03/20 Range/Units 18:30 18:38 19:53 WBC 11.8 H (3.8-10.6) k/uL RBC 3.74 L (4.30-5.90) m/uL Hgb 12.7 L (13.0-17.5) gm/dL Hct 37.0 L (39.0-53.0) % Plt Count 136 L (150-450) k/uL Neutrophils # 10.4 H (1.3-7.7) k/uL Lymphocytes # 0.6 L (1.0-4.8) k/uL ABG pH (7.35-7.45) ABG pCO2 (35-45) mmHg ABG pO2 (83-108) mmHg ABG HCO3 (21-25) mmol/L ABG Total CO2 (19-24) mmol/L ABG O2 Saturation (94-97) % ABG Hematocrit (34.0-46.0) % ABG Potassium (3.4-4.5) mmol/L ABG Ionized Calcium (4.5-5.3) mg/dL ABG Glucose (75-99) mg/dL ABG Lactic Acid (0.5-1.6) mmol/L Hemoglobin (13.0-17.5) gm/dL Sodium (137-145) mmol/L Chloride (98-107) mmol/L Glucose (74-99) mg/dL POC Glucose (mg/dL) 149 H 145 H (75-99) mg/dL Calcium (8.4-10.2) mg/dL AST (17-59) U/L Total Protein (6.3-8.2) g/dL Albumin (3.5-5.0) g/dL Arterial Blood Potassium (3.4-4.5) mmol/L Arterial Blood Glucose (75-99) mg/dL Crossmatch 06/03/20 06/03/20 06/03/20 Range/Units 20:50 20:50 22:08 WBC 10.9 H (3.8-10.6) k/uL RBC 3.74 L (4.30-5.90) m/uL Hgb 12.7 L (13.0-17.5) gm/dL Hct 36.7 L (39.0-53.0) % Plt Count 121 L (150-450) k/uL Neutrophils # 9.6 H (1.3-7.7) k/uL Lymphocytes # 0.5 L (1.0-4.8) k/uL ABG pH (7.35-7.45) ABG pCO2 (35-45) mmHg ABG pO2 (83-108) mmHg ABG HCO3 (21-25) mmol/L ABG Total CO2 (19-24) mmol/L ABG O2 Saturation (94-97) % ABG Hematocrit (34.0-46.0) % ABG Potassium (3.4-4.5) mmol/L ABG Ionized Calcium (4.5-5.3) mg/dL ABG Glucose (75-99) mg/dL ABG Lactic Acid (0.5-1.6) mmol/L Hemoglobin (13.0-17.5) gm/dL Sodium (137-145) mmol/L Chloride (98-107) mmol/L Glucose (74-99) mg/dL POC Glucose (mg/dL) 132 H 152 H (75-99) mg/dL Calcium (8.4-10.2) mg/dL AST (17-59) U/L Total Protein (6.3-8.2) g/dL Albumin (3.5-5.0) g/dL Arterial Blood Potassium (3.4-4.5) mmol/L Arterial Blood Glucose (75-99) mg/dL Crossmatch 06/03/20 06/04/20 06/04/20 Range/Units 23:05 00:30 01:03 WBC (3.8-10.6) k/uL RBC (4.30-5.90) m/uL Hgb (13.0-17.5) gm/dL Hct (39.0-53.0) % Plt Count (150-450) k/uL Neutrophils # (1.3-7.7) k/uL Lymphocytes # (1.0-4.8) k/uL ABG pH (7.35-7.45) ABG pCO2 (35-45) mmHg ABG pO2 (83-108) mmHg ABG HCO3 (21-25) mmol/L ABG Total CO2 (19-24) mmol/L ABG O2 Saturation (94-97) % ABG Hematocrit (34.0-46.0) % ABG Potassium (3.4-4.5) mmol/L ABG Ionized Calcium (4.5-5.3) mg/dL ABG Glucose (75-99) mg/dL ABG Lactic Acid (0.5-1.6) mmol/L Hemoglobin (13.0-17.5) gm/dL Sodium (137-145) mmol/L Chloride (98-107) mmol/L Glucose (74-99) mg/dL POC Glucose (mg/dL) 135 H 132 H 127 H (75-99) mg/dL Calcium (8.4-10.2) mg/dL AST (17-59) U/L Total Protein (6.3-8.2) g/dL Albumin (3.5-5.0) g/dL Arterial Blood Potassium (3.4-4.5) mmol/L Arterial Blood Glucose (75-99) mg/dL Crossmatch 06/04/20 06/04/20 06/04/20 Range/Units 02:08 03:29 04:35 WBC 10.7 H (3.8-10.6) k/uL RBC 3.79 L (4.30-5.90) m/uL Hgb 12.3 L (13.0-17.5) gm/dL Hct 37.8 L (39.0-53.0) % Plt Count 146 L (150-450) k/uL Neutrophils # 8.9 H (1.3-7.7) k/uL Lymphocytes # 0.8 L (1.0-4.8) k/uL ABG pH (7.35-7.45) ABG pCO2 (35-45) mmHg ABG pO2 (83-108) mmHg ABG HCO3 (21-25) mmol/L ABG Total CO2 (19-24) mmol/L ABG O2 Saturation (94-97) % ABG Hematocrit (34.0-46.0) % ABG Potassium (3.4-4.5) mmol/L ABG Ionized Calcium (4.5-5.3) mg/dL ABG Glucose (75-99) mg/dL ABG Lactic Acid (0.5-1.6) mmol/L Hemoglobin (13.0-17.5) gm/dL Sodium (137-145) mmol/L Chloride (98-107) mmol/L Glucose (74-99) mg/dL POC Glucose (mg/dL) 126 H 120 H (75-99) mg/dL Calcium (8.4-10.2) mg/dL AST (17-59) U/L Total Protein (6.3-8.2) g/dL Albumin (3.5-5.0) g/dL Arterial Blood Potassium (3.4-4.5) mmol/L Arterial Blood Glucose (75-99) mg/dL Crossmatch 06/04/20 06/04/20 06/04/20 Range/Units 04:35 04:38 05:03 WBC (3.8-10.6) k/uL RBC (4.30-5.90) m/uL Hgb (13.0-17.5) gm/dL Hct (39.0-53.0) % Plt Count (150-450) k/uL Neutrophils # (1.3-7.7) k/uL Lymphocytes # (1.0-4.8) k/uL ABG pH (7.35-7.45) ABG pCO2 (35-45) mmHg ABG pO2 (83-108) mmHg ABG HCO3 (21-25) mmol/L ABG Total CO2 (19-24) mmol/L ABG O2 Saturation (94-97) % ABG Hematocrit (34.0-46.0) % ABG Potassium (3.4-4.5) mmol/L ABG Ionized Calcium (4.5-5.3) mg/dL ABG Glucose (75-99) mg/dL ABG Lactic Acid (0.5-1.6) mmol/L Hemoglobin (13.0-17.5) gm/dL Sodium 133 L (137-145) mmol/L Chloride (98-107) mmol/L Glucose 123 H (74-99) mg/dL POC Glucose (mg/dL) 126 H 127 H (75-99) mg/dL Calcium 8.0 L (8.4-10.2) mg/dL AST 81 H (17-59) U/L Total Protein 5.3 L (6.3-8.2) g/dL Albumin 3.1 L (3.5-5.0) g/dL Arterial Blood Potassium (3.4-4.5) mmol/L Arterial Blood Glucose (75-99) mg/dL Crossmatch 06/04/20 Range/Units 06:42 WBC (3.8-10.6) k/uL RBC (4.30-5.90) m/uL Hgb (13.0-17.5) gm/dL Hct (39.0-53.0) % Plt Count (150-450) k/uL Neutrophils # (1.3-7.7) k/uL Lymphocytes # (1.0-4.8) k/uL ABG pH (7.35-7.45) ABG pCO2 (35-45) mmHg ABG pO2 (83-108) mmHg ABG HCO3 (21-25) mmol/L ABG Total CO2 (19-24) mmol/L ABG O2 Saturation (94-97) % ABG Hematocrit (34.0-46.0) % ABG Potassium (3.4-4.5) mmol/L ABG Ionized Calcium (4.5-5.3) mg/dL ABG Glucose (75-99) mg/dL ABG Lactic Acid (0.5-1.6) mmol/L Hemoglobin (13.0-17.5) gm/dL Sodium (137-145) mmol/L Chloride (98-107) mmol/L Glucose (74-99) mg/dL POC Glucose (mg/dL) 134 H (75-99) mg/dL Calcium (8.4-10.2) mg/dL AST (17-59) U/L Total Protein (6.3-8.2) g/dL Albumin (3.5-5.0) g/dL Arterial Blood Potassium (3.4-4.5) mmol/L Arterial Blood Glucose (75-99) mg/dL Crossmatch Assessment and Plan Assessment: 1 Severe mitral regurgitation with torn chordae to P2 of the posterior leaflet, status post complex mitral valve repair. Postoperative day #1 2 Mechanical ventilatory support, postoperative, expected outcome of surgery. Extubated on postoperative day #0. On 2 L nasal cannula. 3 History of hypertension 4 Hyperlipidemia 5 History of daily alcohol use. 6 Nonsmoker Plan: The patient was seen and evaluated by Dr. Fajardo Chest x-ray and labs reviewed Extubated within the 6 hour postop window per protocol Working well with the incentive spirometer Increase his activity as tolerated We will continue to follow and make further recommendations based on his clinical status I, the cosigning physician, performed a history & physical examination of the patient. Lungs sounds with faint crackles in the bilateral posterior bases Mediastinal chest tubes in place. Maintaining good O2 saturations in the 90s on 2 L/m per nasal cannula I discussed the assessment and plan of care with my nurse practitioner, Smitha Schuster. I attest to the above note as dictated by her.
[2020-06-04] MEDS: IPRATROPIUM-ALBUTEROL 3 ML NEB INHALATION SCH ×4 (08:14→22:48)
[2020-06-04 08:45] LABS: Glucose,Whole Blood 126 mg/dL (75-99)
[2020-06-04] MEDS ORDERED: MAGNESIUM HYDROXIDE 2,400 MG/10 ML CUP PO PRN (09:00)
[2020-06-04] MEDS ORDERED: METOPROLOL TARTRATE 12.5 MG TAB PO SCH (09:00)
[2020-06-04] MEDS ORDERED: bisacodyL 10 MG SUPP RECTAL PRN (09:00)
[2020-06-04] MEDS ORDERED: PANTOPRAZOLE 40 MG/10 ML VIAL IVP SCH (09:00)
[2020-06-04] MEDS: HEPARIN SODIUM,PORCINE 5,000 UNIT/ML 1 ML VIAL SQ SCH ×2 (09:06→15:24)
[2020-06-04 09:30] VITALS: BMI 27.4
--- NOTE | 2020-06-04 09:31 | P.PN ---
Subjective Progress Note Date: 06/04/20 Principal diagnosis: Severe mitral regurgitation with torn chordae to P2 of the posterior leaflet. Previous medical history of hypertension, hyperlipidemia, daily EtOH use, BPH, l ifelong nonsmoker with preoperative FEV1 83% of predicted POD #1 complex mitral valve repair with bola cords 3, repair to P2 the posterior leaflet, closure of P2, P3 cleft and ring annuloplasty with 38 mm Teresa physio-2 mitral ring, clip ligation of the left atrial appendage with 40 mm AtriClip, intraoperative transesophageal echocardiogram. The patient is currently sitting up in a recliner on the intensive care unit in no acute distress. He was successfully extubated yesterday at 17:40. Does complain of post surgical pain which is controlled on current medication regimen, denies shortness of breath. Actively using incentive spirometry. Remains in normal sinus rhythm and hemodynamically stable on no inotropes or pressors. Did have some PACs yesterday, amiodarone was added per Dr. Carias. Right internal jugular Cordis, right radial arterial line, mediastinal chest tubes present. No new concerns. Objective - Vital Signs Vital signs: Vital Signs Temp 98.8 F 06/04/20 05:00 Pulse 70 06/04/20 08:23 Resp 26 H 06/04/20 07:00 BP 118/73 06/04/20 04:30 Pulse Ox 95 06/04/20 07:00 Intake & Output 06/03/20 06/04/20 06/04/20 18:59 06:59 18:59 Intake Total 453.512 912.626 50 Output Total 2835 630 195 Balance -2381.488 282.626 -145 Intake: IV 402 900 50 ACETAMINOPHEN IV (For NPO 100 100 ) 1,000 mg In Empty Bag 1 bag @ 400 mls/hr IVPB Q6HR REGIN[facility] Rx#:[id number] Amiodarone Bolus 100 Lactated Ringers 1,000 ml 200 600 50 @ 20 mls/hr IV .Q24H REGINA Rx#:[id number] ceFAZolin 2 gm In Sodium 100 100 Chloride 0.9% 50 ml @ 100 mls/hr IVPB Q8HR REGINA Rx# :[id number] Intake, IV Titration 51.512 12.626 Amount Insulin Regular 100 unit 5.681 12.626 In Sodium Chloride 0.9% 100 ml @ Per Protocol IV .Q0M REGINA Rx#:[id number] propofoL 1,000 mg In 45.831 Empty Bag 1 bag @ Titrate IV .Q0M REGINA Rx#: [id number] Output: Chest Tube Drainage 500 110 160 Chest Tube Mediastinal 500 110 160 Urine 935 520 35 Estimated Blood Loss 1400 Other: Voiding Method Indwelling Catheter Indwelling Catheter # Voids 40 ABP, PAP, CO, CI - Last Documented Arterial Blood Pressure 132/56 Pulmonary Artery Pressure 24/9 Cardiac Output 6.7 Cardiac Index 2.9 - Constitutional General appearance: Present: cooperative, no acute distress - Respiratory Details: Lungs sounds clear but diminished bilaterally. Respirations even, nonlabored. Currently on 2 L nasal cannula with oxygen saturation in the mid 90s. Able to achieve 1300 mL on his incentive spirometry. Strong cough. - Cardiovascular Details: S1, S2 present. Regular rate and rhythm, sinus rhythm on telemetry. Sternum stable. Ventricular epicardial pacemaker wires present, grounded. Palpable p eripheral pulses bilaterally. No edema present. No calf pain or tenderness noted. Heart hugger placed patient demonstrating appropriate use. Antiembolism stockings, SCDs present. Right internal jugular Cordis, right radial arterial line present. Mediastinal chest tubes present to continuous wall suction, 170 mL serosanguineous drainage overnight, 750 mL since surgery, no air leaks present. - Gastrointestinal Gastrointestinal Comment(s): Abdomen soft, nontender, nondistended. Hypoactive bowel sounds present 4 quadrants. Tolerating clear liquids. Negative flatus - Genitourinary Genitourinary Comment(s): Caro present draining clear, yellow urine. Output 35-45 mL per hour overnight - Integumentary Integumentary Comment(s): Skin is warm and dry with evidence of good perfusion. Anterior chest incision well approximated and covered with dry intact dressing - Neurologic Neurologic: Present: CNII-XII intact - Musculoskeletal Musculoskeletal: Present: strength equal bilaterally - Psychiatric Psychiatric: Present: A&O x's 3, appropriate affect, intact judgment & insight - Allied health notes Allied health notes reviewed: nursing - Labs CBC & Chem 7: 06/04/20 04:35 06/04/20 04:35 Labs: Abnormal Lab Results - Last 24 Hours (Table) 05/26/20 06/03/20 06/03/20 Range/Units 11:56 08:54 09:43 WBC (3.8-10.6) k/uL RBC (4.30-5.90) m/uL Hgb (13.0-17.5) gm/dL Hct (39.0-53.0) % Plt Count (150-450) k/uL Neutrophils # (1.3-7.7) k/uL Lymphocytes # (1.0-4.8) k/uL ABG pH (7.35-7.45) ABG pCO2 (35-45) mmHg ABG pO2 287 H 255 H (83-108) mmHg ABG HCO3 26 H (21-25) mmol/L ABG Total CO2 27 H (19-24) mmol/L ABG O2 Saturation 99.9 H 99.9 H (94-97) % ABG Hematocrit (34.0-46.0) % ABG Potassium 4.6 H (3.4-4.5) mmol/L ABG Ionized Calcium 4.3 L (4.5-5.3) mg/dL ABG Glucose 100 H 102 H (75-99) mg/dL ABG Lactic Acid (0.5-1.6) mmol/L Hemoglobin 12.0 L (13.0-17.5) gm/dL Sodium (137-145) mmol/L Chloride (98-107) mmol/L Glucose (74-99) mg/dL POC Glucose (mg/dL) (75-99) mg/dL Calcium (8.4-10.2) mg/dL AST (17-59) U/L Total Protein (6.3-8.2) g/dL Albumin (3.5-5.0) g/dL Arterial Blood Potassium 4.6 H (3.4-4.5) mmol/L Arterial Blood Glucose 100 H 102 H (75-99) mg/dL Crossmatch See Detail 06/03/20 06/03/20 06/03/20 Range/Units 10:10 10:25 10:28 WBC (3.8-10.6) k/uL RBC (4.30-5.90) m/uL Hgb (13.0-17.5) gm/dL Hct (39.0-53.0) % Plt Count (150-450) k/uL Neutrophils # (1.3-7.7) k/uL Lymphocytes # (1.0-4.8) k/uL ABG pH 7.29 L 7.30 L 7.30 L (7.35-7.45) ABG pCO2 53 H 51 H 57 H (35-45) mmHg ABG pO2 326 H >420 H 50 L* (83-108) mmHg ABG HCO3 28 H (21-25) mmol/L ABG Total CO2 27 H 26 H 30 H (19-24) mmol/L ABG O2 Saturation 100.0 H 100.0 H 83.3 L (94-97) % ABG Hematocrit 33 L (34.0-46.0) % ABG Potassium 5.1 H (3.4-4.5) mmol/L ABG Ionized Calcium 4.2 L 4.4 L 4.3 L (4.5-5.3) mg/dL ABG Glucose 175 H 152 H 145 H (75-99) mg/dL ABG Lactic Acid (0.5-1.6) mmol/L Hemoglobin 10.8 L 11.7 L 11.5 L (13.0-17.5) gm/dL Sodium (137-145) mmol/L Chloride (98-107) mmol/L Glucose (74-99) mg/dL POC Glucose (mg/dL) (75-99) mg/dL Calcium (8.4-10.2) mg/dL AST (17-59) U/L Total Protein (6.3-8.2) g/dL Albumin (3.5-5.0) g/dL Arterial Blood Potassium 5.1 H (3.4-4.5) mmol/L Arterial Blood Glucose 175 H 152 H 145 H (75-99) mg/dL Crossmatch 06/03/20 06/03/20 06/03/20 Range/Units 10:38 11:08 11:40 WBC (3.8-10.6) k/uL RBC (4.30-5.90) m/uL Hgb (13.0-17.5) gm/dL Hct (39.0-53.0) % Plt Count (150-450) k/uL Neutrophils # (1.3-7.7) k/uL Lymphocytes # (1.0-4.8) k/uL ABG pH 7.34 L (7.35-7.45) ABG pCO2 49 H (35-45) mmHg ABG pO2 334 H 368 H 404 H (83-108) mmHg ABG HCO3 26 H 26 H (21-25) mmol/L ABG Total CO2 28 H 27 H 26 H (19-24) mmol/L ABG O2 Saturation 100.0 H 100.0 H 100.0 H (94-97) % ABG Hematocrit 32 L (34.0-46.0) % ABG Potassium (3.4-4.5) mmol/L ABG Ionized Calcium 4.3 L 4.3 L 4.2 L (4.5-5.3) mg/dL ABG Glucose 154 H 140 H 121 H (75-99) mg/dL ABG Lactic Acid 1.7 H (0.5-1.6) mmol/L Hemoglobin 11.2 L 11.0 L 10.5 L (13.0-17.5) gm/dL Sodium (137-145) mmol/L Chloride (98-107) mmol/L Glucose (74-99) mg/dL POC Glucose (mg/dL) (75-99) mg/dL Calcium (8.4-10.2) mg/dL AST (17-59) U/L Total Protein (6.3-8.2) g/dL Albumin (3.5-5.0) g/dL Arterial Blood Potassium (3.4-4.5) mmol/L Arterial Blood Glucose 154 H 140 H 121 H (75-99) mg/dL Crossmatch 06/03/20 06/03/20 06/03/20 Range/Units 12:13 12:51 13:58 WBC (3.8-10.6) k/uL RBC (4.30-5.90) m/uL Hgb (13.0-17.5) gm/dL Hct (39.0-53.0) % Plt Count (150-450) k/uL Neutrophils # (1.3-7.7) k/uL Lymphocytes # (1.0-4.8) k/uL ABG pH (7.35-7.45) ABG pCO2 (35-45) mmHg ABG pO2 209 H 149 H (83-108) mmHg ABG HCO3 26 H (21-25) mmol/L ABG Total CO2 27 H 27 H (19-24) mmol/L ABG O2 Saturation 99.9 H 99.5 H (94-97) % ABG Hematocrit 33 L (34.0-46.0) % ABG Potassium (3.4-4.5) mmol/L ABG Ionized Calcium 4.4 L 4.4 L (4.5-5.3) mg/dL ABG Glucose 114 H 117 H (75-99) mg/dL ABG Lactic Acid 1.7 H (0.5-1.6) mmol/L Hemoglobin 10.7 L 12.1 L (13.0-17.5) gm/dL Sodium (137-145) mmol/L Chloride (98-107) mmol/L Glucose (74-99) mg/dL POC Glucose (mg/dL) 133 H (75-99) mg/dL Calcium (8.4-10.2) mg/dL AST (17-59) U/L Total Protein (6.3-8.2) g/dL Albumin (3.5-5.0) g/dL Arterial Blood Potassium (3.4-4.5) mmol/L Arterial Blood Glucose 114 H 117 H (75-99) mg/dL Crossmatch 06/03/20 06/03/20 06/03/20 Range/Units 14:00 14:00 14:58 WBC 11.7 H (3.8-10.6) k/uL RBC 3.67 L (4.30-5.90) m/uL Hgb 12.2 L (13.0-17.5) gm/dL Hct 36.6 L (39.0-53.0) % Plt Count 129 L (150-450) k/uL Neutrophils # 10.2 H (1.3-7.7) k/uL Lymphocytes # 0.8 L (1.0-4.8) k/uL ABG pH (7.35-7.45) ABG pCO2 (35-45) mmHg ABG pO2 366 H (83-108) mmHg ABG HCO3 (21-25) mmol/L ABG Total CO2 25 H (19-24) mmol/L ABG O2 Saturation 99.4 H (94-97) % ABG Hematocrit (34.0-46.0) % ABG Potassium (3.4-4.5) mmol/L ABG Ionized Calcium (4.5-5.3) mg/dL ABG Glucose (75-99) mg/dL ABG Lactic Acid (0.5-1.6) mmol/L Hemoglobin (13.0-17.5) gm/dL Sodium 135 L (137-145) mmol/L Chloride 108 H (98-107) mmol/L Glucose 132 H (74-99) mg/dL POC Glucose (mg/dL) (75-99) mg/dL Calcium 7.7 L (8.4-10.2) mg/dL AST 77 H (17-59) U/L Total Protein 4.7 L (6.3-8.2) g/dL Albumin 2.7 L (3.5-5.0) g/dL Arterial Blood Potassium (3.4-4.5) mmol/L Arterial Blood Glucose (75-99) mg/dL Crossmatch 06/03/20 06/03/20 06/03/20 Range/Units 15:39 17:08 17:27 WBC (3.8-10.6) k/uL RBC (4.30-5.90) m/uL Hgb (13.0-17.5) gm/dL Hct (39.0-53.0) % Plt Count (150-450) k/uL Neutrophils # (1.3-7.7) k/uL Lymphocytes # (1.0-4.8) k/uL ABG pH (7.35-7.45) ABG pCO2 (35-45) mmHg ABG pO2 245 H (83-108) mmHg ABG HCO3 (21-25) mmol/L ABG Total CO2 25 H (19-24) mmol/L ABG O2 Saturation 99.4 H (94-97) % ABG Hematocrit (34.0-46.0) % ABG Potassium (3.4-4.5) mmol/L ABG Ionized Calcium (4.5-5.3) mg/dL ABG Glucose (75-99) mg/dL ABG Lactic Acid (0.5-1.6) mmol/L Hemoglobin (13.0-17.5) gm/dL Sodium (137-145) mmol/L Chloride (98-107) mmol/L Glucose (74-99) mg/dL POC Glucose (mg/dL) 125 H 143 H (75-99) mg/dL Calcium (8.4-10.2) mg/dL AST (17-59) U/L Total Protein (6.3-8.2) g/dL Albumin (3.5-5.0) g/dL Arterial Blood Potassium (3.4-4.5) mmol/L Arterial Blood Glucose (75-99) mg/dL Crossmatch 06/03/20 06/03/20 06/03/20 Range/Units 18:30 18:38 19:53 WBC 11.8 H (3.8-10.6) k/uL RBC 3.74 L (4.30-5.90) m/uL Hgb 12.7 L (13.0-17.5) gm/dL Hct 37.0 L (39.0-53.0) % Plt Count 136 L (150-450) k/uL Neutrophils # 10.4 H (1.3-7.7) k/uL Lymphocytes # 0.6 L (1.0-4.8) k/uL ABG pH (7.35-7.45) ABG pCO2 (35-45) mmHg ABG pO2 (83-108) mmHg ABG HCO3 (21-25) mmol/L ABG Total CO2 (19-24) mmol/L ABG O2 Saturation (94-97) % ABG Hematocrit (34.0-46.0) % ABG Potassium (3.4-4.5) mmol/L ABG Ionized Calcium (4.5-5.3) mg/dL ABG Glucose (75-99) mg/dL ABG Lactic Acid (0.5-1.6) mmol/L Hemoglobin (13.0-17.5) gm/dL Sodium (137-145) mmol/L Chloride (98-107) mmol/L Glucose (74-99) mg/dL POC Glucose (mg/dL) 149 H 145 H (75-99) mg/dL Calcium (8.4-10.2) mg/dL AST (17-59) U/L Total Protein (6.3-8.2) g/dL Albumin (3.5-5.0) g/dL Arterial Blood Potassium (3.4-4.5) mmol/L Arterial Blood Glucose (75-99) mg/dL Crossmatch 06/03/20 06/03/20 06/03/20 Range/Units 20:50 20:50 22:08 WBC 10.9 H (3.8-10.6) k/uL RBC 3.74 L (4.30-5.90) m/uL Hgb 12.7 L (13.0-17.5) gm/dL Hct 36.7 L (39.0-53.0) % Plt Count 121 L (150-450) k/uL Neutrophils # 9.6 H (1.3-7.7) k/uL Lymphocytes # 0.5 L (1.0-4.8) k/uL ABG pH (7.35-7.45) ABG pCO2 (35-45) mmHg ABG pO2 (83-108) mmHg ABG HCO3 (21-25) mmol/L ABG Total CO2 (19-24) mmol/L ABG O2 Saturation (94-97) % ABG Hematocrit (34.0-46.0) % ABG Potassium (3.4-4.5) mmol/L ABG Ionized Calcium (4.5-5.3) mg/dL ABG Glucose (75-99) mg/dL ABG Lactic Acid (0.5-1.6) mmol/L Hemoglobin (13.0-17.5) gm/dL Sodium (137-145) mmol/L Chloride (98-107) mmol/L Glucose (74-99) mg/dL POC Glucose (mg/dL) 132 H 152 H (75-99) mg/dL Calcium (8.4-10.2) mg/dL AST (17-59) U/L Total Protein (6.3-8.2) g/dL Albumin (3.5-5.0) g/dL Arterial Blood Potassium (3.4-4.5) mmol/L Arterial Blood Glucose (75-99) mg/dL Crossmatch 06/03/20 06/04/20 06/04/20 Range/Units 23:05 00:30 01:03 WBC (3.8-10.6) k/uL RBC (4.30-5.90) m/uL Hgb (13.0-17.5) gm/dL Hct (39.0-53.0) % Plt Count (150-450) k/uL Neutrophils # (1.3-7.7) k/uL Lymphocytes # (1.0-4.8) k/uL ABG pH (7.35-7.45) ABG pCO2 (35-45) mmHg ABG pO2 (83-108) mmHg ABG HCO3 (21-25) mmol/L ABG Total CO2 (19-24) mmol/L ABG O2 Saturation (94-97) % ABG Hematocrit (34.0-46.0) % ABG Potassium (3.4-4.5) mmol/L ABG Ionized Calcium (4.5-5.3) mg/dL ABG Glucose (75-99) mg/dL ABG Lactic Acid (0.5-1.6) mmol/L Hemoglobin (13.0-17.5) gm/dL Sodium (137-145) mmol/L Chloride (98-107) mmol/L Glucose (74-99) mg/dL POC Glucose (mg/dL) 135 H 132 H 127 H (75-99) mg/dL Calcium (8.4-10.2) mg/dL AST (17-59) U/L Total Protein (6.3-8.2) g/dL Albumin (3.5-5.0) g/dL Arterial Blood Potassium (3.4-4.5) mmol/L Arterial Blood Glucose (75-99) mg/dL Crossmatch 06/04/20 06/04/20 06/04/20 Range/Units 02:08 03:29 04:35 WBC 10.7 H (3.8-10.6) k/uL RBC 3.79 L (4.30-5.90) m/uL Hgb 12.3 L (13.0-17.5) gm/dL Hct 37.8 L (39.0-53.0) % Plt Count 146 L (150-450) k/uL Neutrophils # 8.9 H (1.3-7.7) k/uL Lymphocytes # 0.8 L (1.0-4.8) k/uL ABG pH (7.35-7.45) ABG pCO2 (35-45) mmHg ABG pO2 (83-108) mmHg ABG HCO3 (21-25) mmol/L ABG Total CO2 (19-24) mmol/L ABG O2 Saturation (94-97) % ABG Hematocrit (34.0-46.0) % ABG Potassium (3.4-4.5) mmol/L ABG Ionized Calcium (4.5-5.3) mg/dL ABG Glucose (75-99) mg/dL ABG Lactic Acid (0.5-1.6) mmol/L Hemoglobin (13.0-17.5) gm/dL Sodium (137-145) mmol/L Chloride (98-107) mmol/L Glucose (74-99) mg/dL POC Glucose (mg/dL) 126 H 120 H (75-99) mg/dL Calcium (8.4-10.2) mg/dL AST (17-59) U/L Total Protein (6.3-8.2) g/dL Albumin (3.5-5.0) g/dL Arterial Blood Potassium (3.4-4.5) mmol/L Arterial Blood Glucose (75-99) mg/dL Crossmatch 06/04/20 06/04/20 06/04/20 Range/Units 04:35 04:38 05:03 WBC (3.8-10.6) k/uL RBC (4.30-5.90) m/uL Hgb (13.0-17.5) gm/dL Hct (39.0-53.0) % Plt Count (150-450) k/uL Neutrophils # (1.3-7.7) k/uL Lymphocytes # (1.0-4.8) k/uL ABG pH (7.35-7.45) ABG pCO2 (35-45) mmHg ABG pO2 (83-108) mmHg ABG HCO3 (21-25) mmol/L ABG Total CO2 (19-24) mmol/L ABG O2 Saturation (94-97) % ABG Hematocrit (34.0-46.0) % ABG Potassium (3.4-4.5) mmol/L ABG Ionized Calcium (4.5-5.3) mg/dL ABG Glucose (75-99) mg/dL ABG Lactic Acid (0.5-1.6) mmol/L Hemoglobin (13.0-17.5) gm/dL Sodium 133 L (137-145) mmol/L Chloride (98-107) mmol/L Glucose 123 H (74-99) mg/dL POC Glucose (mg/dL) 126 H 127 H (75-99) mg/dL Calcium 8.0 L (8.4-10.2) mg/dL AST 81 H (17-59) U/L Total Protein 5.3 L (6.3-8.2) g/dL Albumin 3.1 L (3.5-5.0) g/dL Arterial Blood Potassium (3.4-4.5) mmol/L Arterial Blood Glucose (75-99) mg/dL Crossmatch 06/04/20 06/04/20 Range/Units 06:42 08:44 WBC (3.8-10.6) k/uL RBC (4.30-5.90) m/uL Hgb (13.0-17.5) gm/dL Hct (39.0-53.0) % Plt Count (150-450) k/uL Neutrophils # (1.3-7.7) k/uL Lymphocytes # (1.0-4.8) k/uL ABG pH (7.35-7.45) ABG pCO2 (35-45) mmHg ABG pO2 (83-108) mmHg ABG HCO3 (21-25) mmol/L ABG Total CO2 (19-24) mmol/L ABG O2 Saturation (94-97) % ABG Hematocrit (34.0-46.0) % ABG Potassium (3.4-4.5) mmol/L ABG Ionized Calcium (4.5-5.3) mg/dL ABG Glucose (75-99) mg/dL ABG Lactic Acid (0.5-1.6) mmol/L Hemoglobin (13.0-17.5) gm/dL Sodium (137-145) mmol/L Chloride (98-107) mmol/L Glucose (74-99) mg/dL POC Glucose (mg/dL) 134 H 126 H (75-99) mg/dL Calcium (8.4-10.2) mg/dL AST (17-59) U/L Total Protein (6.3-8.2) g/dL Albumin (3.5-5.0) g/dL Arterial Blood Potassium (3.4-4.5) mmol/L Arterial Blood Glucose (75-99) mg/dL Crossmatch - Imaging and Cardiology Chest x-ray: image reviewed Assessment and Plan Assessment: 1. Severe mitral regurgitation with torn chordae to P2 of the posterior leaflet, status post complex mitral valve repair with bola cords 3, repair to P2 of the posterior leaflet, closure of P2, P3 cleft and ring annuloplasty with 38 mm Teresa physio-2 mitral ring 2. History of hypertension 3. Hyperlipidemia 4. Daily EtOH use, 3 beers daily with no history of withdrawal 5. BPH 6. Lifelong nonsmoker with preoperative FEV1 83% of predicted Plan: 1. Continue aspirin, statin, Plavix, beta brannon therapy. Will increase beta brannon as tolerated 2. Continue amiodarone for A. fib prophylaxis 3. Wean O2 as tolerated. Encourage incentive spirometry 10 times every hour while awake. Bronchodilators per pulmonology 4. Increase activity, ambulate as tolerated. PT/OT/cardiac rehab consulted 5. Will monitor daily labs and x-rays. Electrolyte replacement per protocol. 6. Insulin management per primary care service 7. GI/DVT prophylaxis 8. Pain control with current medication regimen 9. Continue chest tubes for another 24 hours 10. Continue Caro catheter for to the 24 hours. Strict accurate intake and output. Daily weights using standard scale, not bed scale 11. CIWA protocol. Continue thiamine and folic acid 12. More recommendations to follow based on patient's progress
[2020-06-04 10:08] LABS: Glucose,Whole Blood 158 mg/dL (75-99)
[2020-06-04] MEDS: AMIODARONE 200 MG TAB PO SCH ×2 (10:12→20:35)
[2020-06-04] MEDS: CLOPIDOGREL 75 MG TAB PO SCH (10:13)
[2020-06-04] MEDS: ATORVASTATIN 40 MG TAB PO SCH (10:13)
[2020-06-04] MEDS: FOLIC ACID 1 MG TAB PO SCH (10:13)
[2020-06-04] MEDS: METOPROLOL TARTRATE 25 MG TAB PO SCH ×2 (10:13→20:35)
[2020-06-04] MEDS: ASPIRIN 325 MG TAB PO SCH (10:14)
[2020-06-04] MEDS: THIAMINE 100 MG TAB PO SCH (10:14)
[2020-06-04] MEDS: HYDROcodone/APAP 5-325MG 1 EACH TAB PO PRN ×4 (10:25→22:43)
[2020-06-04] MEDS: ALBUMIN HUMAN 5% 250 ML in EMPTY BAG 1 BAG IVPB PRN ×4 (10:41→15:04)
--- NOTE | 2020-06-04 11:12 | XR ---
EXAMINATION TYPE: XR chest 1V portable DATE OF EXAM: 06/04/2020 COMPARISON: 06/03/2020 INDICATION: Postop cardiac surgery TECHNIQUE: Single frontal view of the chest is obtained. FINDINGS: The heart size is large. The pulmonary vasculature is normal. Left lower lobe infiltrate is present. Correlate for atelectasis or pneumonia. 2 mediastinal tubes are present. Sternotomy wires from cardiac valve surgery are evident. The right c entral venous catheter is been removed. Sheath remains present. No pneumothorax is evident. Endotrach eal tube and nasogastric tube is been removed. IMPRESSION: 1. Left lower lobe infiltrate developing silhouetting the diaphragm. Correlate for atelectasis and pn eumonia. 2. Lines and catheters discussed above.
--- NOTE | 2020-06-04 11:46 | P.PN ---
Subjective Progress Note Date: 06/04/20 60-year-old male one of my office patient with past medical history of hypertension hyperlipidemia who was found 4 weeks ago to have severe mitral regurgitation with flail posterior leaflet of the mitral valve initially was diagnosed clinically with a loud murmur echocardiogram was performed and showed the severity of the mitral regurgitation. 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 Patient had no coronary artery disease on heart catheter. Patient was referred to cardiothoracic surgery seen Dr. Carias and ended up coming for mitral valve repair and ring annuloplasty. Post surgery he was on mechanical ventilation and shortly after was extubated successfully with no major complication. Patient had chest tube otherwise hemodynamically stable. 06/04: Patient is resting essentially in bed without any complaints. he is hemodynamically stable and afebrile. WT 10.7, hemoglobin 12.3, potassium 4.5, BUN 20, creatinine 0.76, blood glucose levels range from 130s to 160s. Urinary output is 40 ML's per hour. Actively using incentive spirometer. Remains in normal sinus rhythm. Did have some PACs yesterday. Maintaining O2 saturations in the mid 90s on 2 L/m per nasal cannula. Chest x-ray reveals some atelectatic changes at the bases more so on the left. Chest tubes remain in place with 800 ML's out since surgery. Review of Systems CONSTITUTIONAL: Well-developed no acute respiratory distress. EYES: No icterus sclerae, no conjunctivitis. EARS, NOSE, MOUTH, THROAT, and FACE: No sore throat, lymphadenopathy, carotid bruits or deformity. RESPIRATORY: Mild shortness of breath exertion, 2 chest tube post extubation after surgery. CARDIOVASCULAR: No CP, Palpitation, PND, Orthopnea, or angina. Post mitral valve repair with annuloplasty GASTROINTESTINAL: No Abd pain, Nausea or vomiting, no Diarrhea or constipation, No GI Bleed, no distention or masses. GENITOURINARY: Negative for Hematuria or UTI, no kidney stones. INTEGUMENT/BREAST: Negative for any muscular injury with mild osteoarthritis.. HEMATOLOGIC/LYMPHATIC: Negative for bleed or purpura. MUSCULOSKELTAL: Negative for Myalgia or arthralgia. NEURLOGICAL: No LOC, Sz or syncope, blurred vision dizziness or abnormality.. BEHAVIORAL/PSYCH: Negative. ENDOCRINE: Negative. Physical exam: General Appearance: Alert, cooperative, no distress, appears stated age. Neck HEENT: Supple, no lymphadenopathy, no thyroid enlargement, no carotid bruits. Lungs: Decreased breath sounds specially in the left side no crackles or wheezes. Chest Wall: Decrease expansion with deep inspiration , incision in the midline looks fine with no bleed, still have 2 chest tube Heart: Regular rate and rhythm, S1, S2 normal, no murmur, rub or gallop. Back: Symmetric, no curvature, ROM normal, no CVA tenderness. Abdomen: Soft, non-tender, bowel sounds active all four quadrants, no masses, no organomegaly. Extremities: Extremities normal, atraumatic, no cyanosis or edema. Pulses: 2+ and symmetric. Skin: Skin color, texture, tugor normal, no rashes or lesions. Neurologic: Alert oriented x3 cranial nerves II through XII intact, no motor deficit, no abnormal balance or gait. Assessment/plan: 1 post mitral valve repair of the posterior leaflet with valve annuloplasty: P ostop day 1, Patient is doing well so far was extubated successfully is off mechanical ventilation and hemodynamically stable pain is under control. 2 hypertension: Was well controlled on lisinopril 10 mg a day. 3 hyperlipidemia: Was on Crestor which should be started in the next 24 hours. 4 BPH: Watch for any urinary retention. 5 severe dyspnea: Was mostly secondary to severe mitral regurgitation and flail valve should improve after surgery. 6 post surgery mechanical ventilation: With successful extubation shortly after surgery with no complications so far. 7 hyperglycemia: Discontinue insulin drip, switched to Accu-Chek with sliding scale coverage and Levemir 5 units daily at bedtime. CODE STATUS: Full code Dr. Carias thank you very much for the consult if I can be any further help to please let me know. Impression and plan of care have been directed as dictated by the signing physician. Adelina Holliday nurse practitioner acting as scribe for signing p dawood. Objective - Vital Signs Vital signs: Vital Signs Temp 99.3 F 06/04/20 08:00 Pulse 71 06/04/20 10:00 Resp 19 06/04/20 10:00 BP 129/73 06/04/20 10:00 Pulse Ox 95 06/04/20 10:00 Intake & Output 06/03/20 06/04/20 06/04/20 18:59 06:59 18:59 Intake Total 453.512 912.626 232.696 Output Total 2835 630 355 Balance -2381.488 282.626 -122.304 Weight 102.3 kg Intake: IV 402 900 218 ACETAMINOPHEN IV (For NPO 100 100 ) 1,000 mg In Empty Bag 1 bag @ 400 mls/hr IVPB Q6HR [facility] Rx#:[id number] Amiodarone Bolus 100 Lactated Ringers 1,000 ml 200 600 200 @ 20 mls/hr IV .Q24H [facility] Rx#:[id number] Pressure Bag 0.9 18 ceFAZolin 2 gm In Sodium 100 100 Chloride 0.9% 50 ml @ 100 mls/hr IVPB Q8HR [facility] Rx# :[id number] Intake, IV Titration 51.512 12.626 14.696 Amount Insulin Regular 100 unit 5.681 12.626 14.696 In Sodium Chloride 0.9% 100 ml @ Per Protocol IV .Q0M [facility] Rx#:[id number] propofoL 1,000 mg In 45.831 Empty Bag 1 bag @ Titrate IV .Q0M [facility] Rx#: [id number] Output: Chest Tube Drainage 500 110 270 Chest Tube Mediastinal 500 110 270 Urine 935 520 85 Estimated Blood Loss 1400 Other: Voiding Method Indwelling Catheter Indwelling Catheter # Voids 40 ABP, PAP, CO, CI - Last Documented Arterial Blood Pressure 104/47 Pulmonary Artery Pressure 24/9 Cardiac Output 6.7 Cardiac Index 2.9 - Labs CBC & Chem 7: 06/04/20 04:35 06/04/20 04:35 Labs: Abnormal Lab Results - Last 24 Hours (Table) 05/26/20 06/03/20 06/03/20 Range/Units 11:56 08:54 09:43 WBC (3.8-10.6) k/uL RBC (4.30-5.90) m/uL Hgb (13.0-17.5) gm/dL Hct (39.0-53.0) % Plt Count (150-450) k/uL Neutrophils # (1.3-7.7) k/uL Lymphocytes # (1.0-4.8) k/uL ABG pH (7.35-7.45) ABG pCO2 (35-45) mmHg ABG pO2 287 H 255 H (83-108) mmHg ABG HCO3 26 H (21-25) mmol/L ABG Total CO2 27 H (19-24) mmol/L ABG O2 Saturation 99.9 H 99.9 H (94-97) % ABG Hematocrit (34.0-46.0) % ABG Potassium 4.6 H (3.4-4.5) mmol/L ABG Ionized Calcium 4.3 L (4.5-5.3) mg/dL ABG Glucose 100 H 102 H (75-99) mg/dL ABG Lactic Acid (0.5-1.6) mmol/L Hemoglobin 12.0 L (13.0-17.5) gm/dL Sodium (137-145) mmol/L Chloride (98-107) mmol/L Glucose (74-99) mg/dL POC Glucose (mg/dL) (75-99) mg/dL Calcium (8.4-10.2) mg/dL AST (17-59) U/L Total Protein (6.3-8.2) g/dL Albumin (3.5-5.0) g/dL Arterial Blood Potassium 4.6 H (3.4-4.5) mmol/L Arterial Blood Glucose 100 H 102 H (75-99) mg/dL Crossmatch See Detail 06/03/20 06/03/20 06/03/20 Range/Units 10:10 10:25 10:28 WBC (3.8-10.6) k/uL RBC (4.30-5.90) m/uL Hgb (13.0-17.5) gm/dL Hct (39.0-53.0) % Plt Count (150-450) k/uL Neutrophils # (1.3-7.7) k/uL Lymphocytes # (1.0-4.8) k/uL ABG pH 7.29 L 7.30 L 7.30 L (7.35-7.45) ABG pCO2 53 H 51 H 57 H (35-45) mmHg ABG pO2 326 H >420 H 50 L* (83-108) mmHg ABG HCO3 28 H (21-25) mmol/L ABG Total CO2 27 H 26 H 30 H (19-24) mmol/L ABG O2 Saturation 100.0 H 100.0 H 83.3 L (94-97) % ABG Hematocrit 33 L (34.0-46.0) % ABG Potassium 5.1 H (3.4-4.5) mmol/L ABG Ionized Calcium 4.2 L 4.4 L 4.3 L (4.5-5.3) mg/dL ABG Glucose 175 H 152 H 145 H (75-99) mg/dL ABG Lactic Acid (0.5-1.6) mmol/L Hemoglobin 10.8 L 11.7 L 11.5 L (13.0-17.5) gm/dL Sodium (137-145) mmol/L Chloride (98-107) mmol/L Glucose (74-99) mg/dL POC Glucose (mg/dL) (75-99) mg/dL Calcium (8.4-10.2) mg/dL AST (17-59) U/L Total Protein (6.3-8.2) g/dL Albumin (3.5-5.0) g/dL Arterial Blood Potassium 5.1 H (3.4-4.5) mmol/L Arterial Blood Glucose 175 H 152 H 145 H (75-99) mg/dL Crossmatch 06/03/20 06/03/20 06/03/20 Range/Units 10:38 11:08 11:40 WBC (3.8-10.6) k/uL RBC (4.30-5.90) m/uL Hgb (13.0-17.5) gm/dL Hct (39.0-53.0) % Plt Count (150-450) k/uL Neutrophils # (1.3-7.7) k/uL Lymphocytes # (1.0-4.8) k/uL ABG pH 7.34 L (7.35-7.45) ABG pCO2 49 H (35-45) mmHg ABG pO2 334 H 368 H 404 H (83-108) mmHg ABG HCO3 26 H 26 H (21-25) mmol/L ABG Total CO2 28 H 27 H 26 H (19-24) mmol/L ABG O2 Saturation 100.0 H 100.0 H 100.0 H (94-97) % ABG Hematocrit 32 L (34.0-46.0) % ABG Potassium (3.4-4.5) mmol/L ABG Ionized Calcium 4.3 L 4.3 L 4.2 L (4.5-5.3) mg/dL ABG Glucose 154 H 140 H 121 H (75-99) mg/dL ABG Lactic Acid 1.7 H (0.5-1.6) mmol/L Hemoglobin 11.2 L 11.0 L 10.5 L (13.0-17.5) gm/dL Sodium (137-145) mmol/L Chloride (98-107) mmol/L Glucose (74-99) mg/dL POC Glucose (mg/dL) (75-99) mg/dL Calcium (8.4-10.2) mg/dL AST (17-59) U/L Total Protein (6.3-8.2) g/dL Albumin (3.5-5.0) g/dL Arterial Blood Potassium (3.4-4.5) mmol/L Arterial Blood Glucose 154 H 140 H 121 H (75-99) mg/dL Crossmatch 06/03/20 06/03/20 06/03/20 Range/Units 12:13 12:51 13:58 WBC (3.8-10.6) k/uL RBC (4.30-5.90) m/uL Hgb (13.0-17.5) gm/dL Hct (39.0-53.0) % Plt Count (150-450) k/uL Neutrophils # (1.3-7.7) k/uL Lymphocytes # (1.0-4.8) k/uL ABG pH (7.35-7.45) ABG pCO2 (35-45) mmHg ABG pO2 209 H 149 H (83-108) mmHg ABG HCO3 26 H (21-25) mmol/L ABG Total CO2 27 H 27 H (19-24) mmol/L ABG O2 Saturation 99.9 H 99.5 H (94-97) % ABG Hematocrit 33 L (34.0-46.0) % ABG Potassium (3.4-4.5) mmol/L ABG Ionized Calcium 4.4 L 4.4 L (4.5-5.3) mg/dL ABG Glucose 114 H 117 H (75-99) mg/dL ABG Lactic Acid 1.7 H (0.5-1.6) mmol/L Hemoglobin 10.7 L 12.1 L (13.0-17.5) gm/dL Sodium (137-145) mmol/L Chloride (98-107) mmol/L Glucose (74-99) mg/dL POC Glucose (mg/dL) 133 H (75-99) mg/dL Calcium (8.4-10.2) mg/dL AST (17-59) U/L Total Protein (6.3-8.2) g/dL Albumin (3.5-5.0) g/dL Arterial Blood Potassium (3.4-4.5) mmol/L Arterial Blood Glucose 114 H 117 H (75-99) mg/dL Crossmatch 06/03/20 06/03/20 06/03/20 Range/Units 14:00 14:00 14:58 WBC 11.7 H (3.8-10.6) k/uL RBC 3.67 L (4.30-5.90) m/uL Hgb 12.2 L (13.0-17.5) gm/dL Hct 36.6 L (39.0-53.0) % Plt Count 129 L (150-450) k/uL Neutrophils # 10.2 H (1.3-7.7) k/uL Lymphocytes # 0.8 L (1.0-4.8) k/uL ABG pH (7.35-7.45) ABG pCO2 (35-45) mmHg ABG pO2 366 H (83-108) mmHg ABG HCO3 (21-25) mmol/L ABG Total CO2 25 H (19-24) mmol/L ABG O2 Saturation 99.4 H (94-97) % ABG Hematocrit (34.0-46.0) % ABG Potassium (3.4-4.5) mmol/L ABG Ionized Calcium (4.5-5.3) mg/dL ABG Glucose (75-99) mg/dL ABG Lactic Acid (0.5-1.6) mmol/L Hemoglobin (13.0-17.5) gm/dL Sodium 135 L (137-145) mmol/L Chloride 108 H (98-107) mmol/L Glucose 132 H (74-99) mg/dL POC Glucose (mg/dL) (75-99) mg/dL Calcium 7.7 L (8.4-10.2) mg/dL AST 77 H (17-59) U/L Total Protein 4.7 L (6.3-8.2) g/dL Albumin 2.7 L (3.5-5.0) g/dL Arterial Blood Potassium (3.4-4.5) mmol/L Arterial Blood Glucose (75-99) mg/dL Crossmatch 06/03/20 06/03/20 06/03/20 Range/Units 15:39 17:08 17:27 WBC (3.8-10.6) k/uL RBC (4.30-5.90) m/uL Hgb (13.0-17.5) gm/dL Hct (39.0-53.0) % Plt Count (150-450) k/uL Neutrophils # (1.3-7.7) k/uL Lymphocytes # (1.0-4.8) k/uL ABG pH (7.35-7.45) ABG pCO2 (35-45) mmHg ABG pO2 245 H (83-108) mmHg ABG HCO3 (21-25) mmol/L ABG Total CO2 25 H (19-24) mmol/L ABG O2 Saturation 99.4 H (94-97) % ABG Hematocrit (34.0-46.0) % ABG Potassium (3.4-4.5) mmol/L ABG Ionized Calcium (4.5-5.3) mg/dL ABG Glucose (75-99) mg/dL ABG Lactic Acid (0.5-1.6) mmol/L Hemoglobin (13.0-17.5) gm/dL Sodium (137-145) mmol/L Chloride (98-107) mmol/L Glucose (74-99) mg/dL POC Glucose (mg/dL) 125 H 143 H (75-99) mg/dL Calcium (8.4-10.2) mg/dL AST (17-59) U/L Total Protein (6.3-8.2) g/dL Albumin (3.5-5.0) g/dL Arterial Blood Potassium (3.4-4.5) mmol/L Arterial Blood Glucose (75-99) mg/dL Crossmatch 06/03/20 06/03/20 06/03/20 Range/Units 18:30 18:38 19:53 WBC 11.8 H (3.8-10.6) k/uL RBC 3.74 L (4.30-5.90) m/uL Hgb 12.7 L (13.0-17.5) gm/dL Hct 37.0 L (39.0-53.0) % Plt Count 136 L (150-450) k/uL Neutrophils # 10.4 H (1.3-7.7) k/uL Lymphocytes # 0.6 L (1.0-4.8) k/uL ABG pH (7.35-7.45) ABG pCO2 (35-45) mmHg ABG pO2 (83-108) mmHg ABG HCO3 (21-25) mmol/L ABG Total CO2 (19-24) mmol/L ABG O2 Saturation (94-97) % ABG Hematocrit (34.0-46.0) % ABG Potassium (3.4-4.5) mmol/L ABG Ionized Calcium (4.5-5.3) mg/dL ABG Glucose (75-99) mg/dL ABG Lactic Acid (0.5-1.6) mmol/L Hemoglobin (13.0-17.5) gm/dL Sodium (137-145) mmol/L Chloride (98-107) mmol/L Glucose (74-99) mg/dL POC Glucose (mg/dL) 149 H 145 H (75-99) mg/dL Calcium (8.4-10.2) mg/dL AST (17-59) U/L Total Protein (6.3-8.2) g/dL Albumin (3.5-5.0) g/dL Arterial Blood Potassium (3.4-4.5) mmol/L Arterial Blood Glucose (75-99) mg/dL Crossmatch 06/03/20 06/03/20 06/03/20 Range/Units 20:50 20:50 22:08 WBC 10.9 H (3.8-10.6) k/uL RBC 3.74 L (4.30-5.90) m/uL Hgb 12.7 L (13.0-17.5) gm/dL Hct 36.7 L (39.0-53.0) % Plt Count 121 L (150-450) k/uL Neutrophils # 9.6 H (1.3-7.7) k/uL Lymphocytes # 0.5 L (1.0-4.8) k/uL ABG pH (7.35-7.45) ABG pCO2 (35-45) mmHg ABG pO2 (83-108) mmHg ABG HCO3 (21-25) mmol/L ABG Total CO2 (19-24) mmol/L ABG O2 Saturation (94-97) % ABG Hematocrit (34.0-46.0) % ABG Potassium (3.4-4.5) mmol/L ABG Ionized Calcium (4.5-5.3) mg/dL ABG Glucose (75-99) mg/dL ABG Lactic Acid (0.5-1.6) mmol/L Hemoglobin (13.0-17.5) gm/dL Sodium (137-145) mmol/L Chloride (98-107) mmol/L Glucose (74-99) mg/dL POC Glucose (mg/dL) 132 H 152 H (75-99) mg/dL Calcium (8.4-10.2) mg/dL AST (17-59) U/L Total Protein (6.3-8.2) g/dL Albumin (3.5-5.0) g/dL Arterial Blood Potassium (3.4-4.5) mmol/L Arterial Blood Glucose (75-99) mg/dL Crossmatch 06/03/20 06/04/20 06/04/20 Range/Units 23:05 00:30 01:03 WBC (3.8-10.6) k/uL RBC (4.30-5.90) m/uL Hgb (13.0-17.5) gm/dL Hct (39.0-53.0) % Plt Count (150-450) k/uL Neutrophils # (1.3-7.7) k/uL Lymphocytes # (1.0-4.8) k/uL ABG pH (7.35-7.45) ABG pCO2 (35-45) mmHg ABG pO2 (83-108) mmHg ABG HCO3 (21-25) mmol/L ABG Total CO2 (19-24) mmol/L ABG O2 Saturation (94-97) % ABG Hematocrit (34.0-46.0) % ABG Potassium (3.4-4.5) mmol/L ABG Ionized Calcium (4.5-5.3) mg/dL ABG Glucose (75-99) mg/dL ABG Lactic Acid (0.5-1.6) mmol/L Hemoglobin (13.0-17.5) gm/dL Sodium (137-145) mmol/L Chloride (98-107) mmol/L Glucose (74-99) mg/dL POC Glucose (mg/dL) 135 H 132 H 127 H (75-99) mg/dL Calcium (8.4-10.2) mg/dL AST (17-59) U/L Total Protein (6.3-8.2) g/dL Albumin (3.5-5.0) g/dL Arterial Blood Potassium (3.4-4.5) mmol/L Arterial Blood Glucose (75-99) mg/dL Crossmatch 06/04/20 06/04/20 06/04/20 Range/Units 02:08 03:29 04:35 WBC 10.7 H (3.8-10.6) k/uL RBC 3.79 L (4.30-5.90) m/uL Hgb 12.3 L (13.0-17.5) gm/dL Hct 37.8 L (39.0-53.0) % Plt Count 146 L (150-450) k/uL Neutrophils # 8.9 H (1.3-7.7) k/uL Lymphocytes # 0.8 L (1.0-4.8) k/uL ABG pH (7.35-7.45) ABG pCO2 (35-45) mmHg ABG pO2 (83-108) mmHg ABG HCO3 (21-25) mmol/L ABG Total CO2 (19-24) mmol/L ABG O2 Saturation (94-97) % ABG Hematocrit (34.0-46.0) % ABG Potassium (3.4-4.5) mmol/L ABG Ionized Calcium (4.5-5.3) mg/dL ABG Glucose (75-99) mg/dL ABG Lactic Acid (0.5-1.6) mmol/L Hemoglobin (13.0-17.5) gm/dL Sodium (137-145) mmol/L Chloride (98-107) mmol/L Glucose (74-99) mg/dL POC Glucose (mg/dL) 126 H 120 H (75-99) mg/dL Calcium (8.4-10.2) mg/dL AST (17-59) U/L Total Protein (6.3-8.2) g/dL Albumin (3.5-5.0) g/dL Arterial Blood Potassium (3.4-4.5) mmol/L Arterial Blood Glucose (75-99) mg/dL Crossmatch 06/04/20 06/04/20 06/04/20 Range/Units 04:35 04:38 05:03 WBC (3.8-10.6) k/uL RBC (4.30-5.90) m/uL Hgb (13.0-17.5) gm/dL Hct (39.0-53.0) % Plt Count (150-450) k/uL Neutrophils # (1.3-7.7) k/uL Lymphocytes # (1.0-4.8) k/uL ABG pH (7.35-7.45) ABG pCO2 (35-45) mmHg ABG pO2 (83-108) mmHg ABG HCO3 (21-25) mmol/L ABG Total CO2 (19-24) mmol/L ABG O2 Saturation (94-97) % ABG Hematocrit (34.0-46.0) % ABG Potassium (3.4-4.5) mmol/L ABG Ionized Calcium (4.5-5.3) mg/dL ABG Glucose (75-99) mg/dL ABG Lactic Acid (0.5-1.6) mmol/L Hemoglobin (13.0-17.5) gm/dL Sodium 133 L (137-145) mmol/L Chloride (98-107) mmol/L Glucose 123 H (74-99) mg/dL POC Glucose (mg/dL) 126 H 127 H (75-99) mg/dL Calcium 8.0 L (8.4-10.2) mg/dL AST 81 H (17-59) U/L Total Protein 5.3 L (6.3-8.2) g/dL Albumin 3.1 L (3.5-5.0) g/dL Arterial Blood Potassium (3.4-4.5) mmol/L Arterial Blood Glucose (75-99) mg/dL Crossmatch 06/04/20 06/04/20 06/04/20 Range/Units 06:42 08:44 10:07 WBC (3.8-10.6) k/uL RBC (4.30-5.90) m/uL Hgb (13.0-17.5) gm/dL Hct (39.0-53.0) % Plt Count (150-450) k/uL Neutrophils # (1.3-7.7) k/uL Lymphocytes # (1.0-4.8) k/uL ABG pH (7.35-7.45) ABG pCO2 (35-45) mmHg ABG pO2 (83-108) mmHg ABG HCO3 (21-25) mmol/L ABG Total CO2 (19-24) mmol/L ABG O2 Saturation (94-97) % ABG Hematocrit (34.0-46.0) % ABG Potassium (3.4-4.5) mmol/L ABG Ionized Calcium (4.5-5.3) mg/dL ABG Glucose (75-99) mg/dL ABG Lactic Acid (0.5-1.6) mmol/L Hemoglobin (13.0-17.5) gm/dL Sodium (137-145) mmol/L Chloride (98-107) mmol/L Glucose (74-99) mg/dL POC Glucose (mg/dL) 134 H 126 H 158 H (75-99) mg/dL Calcium (8.4-10.2) mg/dL AST (17-59) U/L Total Protein (6.3-8.2) g/dL Albumin (3.5-5.0) g/dL Arterial Blood Potassium (3.4-4.5) mmol/L Arterial Blood Glucose (75-99) mg/dL Crossmatch
[2020-06-04 12:32] LABS: Glucose,Whole Blood 128 mg/dL (75-99)
[2020-06-04] MEDS: INSULIN ASPART (NovoLOG) 100 UNIT/ML VIAL SQ SCH ×3 (12:33→20:34)
--- NOTE | 2020-06-04 17:34 | P.PN ---
Subjective HISTORY OF PRESENTING ILLNESS This is a pleasant 60-year-old male past medical history significant for retention, hyperlipidemia, severe mitral regurgitation with flail posterior leaflet, mild nonobstructive coronary artery disease. He follows in the office with Dr Camejo. Patient admits he had been fairly asymptomatic however was noted to have increased blood pressure and after seeing his primary care physician and echo was performed which showed severe acute regurgitation with flail. Therefore heart catheterization and FAIZA were performed. Patient did undergo successful mitral valve repair with bola cords 3, left atrial appendage atrial clip and a ring annuloplasty with a 30 mm Teresa mitral ring. Patient admits that overall he has been doing well. He does admit to some chest discomfort around the incision site. He did have an EKG performed which does show mild diffuse proximally [address] elevation consistent with pericarditis. He additionally had a 9 beat run of wide complex tachycardia which was irregular, questionable small run of A. fib/SVT with aberancy given the irregularity. He was asymptomatic. Therefore amiodarone was placed. DIAGNOSTICS EKG reveals []. Chest xray []. Laboratory reviewed, []. Current cardiac medications include []. REVIEW OF SYSTEMS At the time of my exam: CONSTITUTIONAL: Denies fever or chills. CARDIOVASCULAR: Denies chest pain, shortness of breath, orthopnea, PND or palpitations. RESPIRATORY: Denies cough. GASTROINTESTINAL: Denies abdominal pain, diarrhea, constipation, nausea or v omiting. MUSCULOSKELETAL: Denies myalgias. NEUROLOGIC: Denies numbness, tingling or weakness. ENDOCRINE: Denies fatigue, weight change, polydipsia or polyurina. GENITOURINARY: Denies burning, hematuria or urgency with micturation. HEMATOLOGIC: Denies history of anemia or bleeding. PHYSICAL EXAMINATION Blood pressure [] heart rate [] afebrile and maintaining oxygen saturation on []. CONSTITUTIONAL: No apparent distress. HEENT: Head is normocephalic. Pupils are equal, round. Sclerae anicteric. Mucous membranes of the mouth are moist. No JVD. No carotid bruit. CHEST EXAMINATION: Lungs are clear to auscultation. No chest wall tenderness is noted on palpation or with deep breathing. HEART EXAMINATION: Regular rate and rhythm. S1, S2 heard. No murmurs, gallops or rub. ABDOMEN: Soft, nontender. Positive bowel sounds. EXTREMITIES: 2+ peripheral pulses, no lower extremity edema and no calf tenderness. NEUROLOGIC EXAMINATION: Patient is awake, alert and oriented x3. ASSESSMENT 1. Severe mitral regurgitation with P2 flail status post mitral valve repair and ring annuloplasty 06/03/2020 2. EKG consistent with pericarditis, patient remains relatively asymptomatic 3. 9 beat run wide-complex tachycardia, suspect SVT/Afib with aberancy given irregularity 4. Alcohol use 5. Hypertension 6. Hyperlipidemia PLAN Patient's EKG does show possible pericarditis however he remains relatively asymptomatic. Discussed with cardiothoracic surgery. We will continue to monitor symptoms and aspirin/Toradol. Wide-complex tachycardia reviewed and may be short run of A. fib with aberancy which would be fairly unsurprising with recent surgery. Continue amiodarone and beta brannon. Continue supportive care. Objective - Vital Signs Vital signs: Vital Signs Temp 99.3 F 06/04/20 12:00 Pulse 82 06/04/20 17:10 Resp 14 06/04/20 16:27 BP 106/69 06/04/20 14:00 Pulse Ox 94 L 06/04/20 16:00 Intake & Output 06/03/20 06/04/20 06/04/20 18:59 06:59 18:59 Intake Total 453.512 825.582 0882.904 Output Total 2835 630 570 Balance -2381.488 664.515 6642.904 Weight 102.3 kg Intake: IV 651 564 8139 ACETAMINOPHEN IV (For NPO 100 100 ) 1,000 mg In Empty Bag 1 bag @ 400 mls/hr IVPB Q6HR [facility] Rx#:[id number] Albumin Human 5% 250 ml @ 1000 0 mls/hr IVPB .STK-MED [facility] Rx#:[id number] Amiodarone Bolus 100 Lactated Ringers 1,000 ml 200 600 450 @ 20 mls/hr IV .Q24H [facility] Rx#:[id number] Pressure Bag 0.9 48 ceFAZolin 2 gm In Sodium 100 100 Chloride 0.9% 50 ml @ 100 mls/hr IVPB Q8HR [facility] Rx# :[id number] Intake, IV Titration 51.512 12.626 18.904 Amount Insulin Regular 100 unit 5.681 12.626 18.904 In Sodium Chloride 0.9% 100 ml @ Per Protocol IV .Q0M [facility] Rx#:[id number] propofoL 1,000 mg In 45.831 Empty Bag 1 bag @ Titrate IV .Q0M [facility] Rx#: [id number] Oral 250 Output: Chest Tube Drainage 500 110 370 Chest Tube Mediastinal 500 110 370 Urine 935 520 200 Estimated Blood Loss 1400 Other: Voiding Method Indwelling Catheter Indwelling Catheter Indwelling Catheter # Voids 40 ABP, PAP, CO, CI - Last Documented Arterial Blood Pressure 99/54 Pulmonary Artery Pressure 17/03 Cardiac Output 6.7 Cardiac Index 2.9 - Labs CBC & Chem 7: 06/04/20 04:35 06/04/20 04:35 Labs: Abnormal Lab Results - Last 24 Hours (Table) 05/26/20 06/03/20 06/03/20 Range/Units 11:56 17:27 18:30 WBC 11.8 H (3.8-10.6) k/uL RBC 3.74 L (4.30-5.90) m/uL Hgb 12.7 L (13.0-17.5) gm/dL Hct 37.0 L (39.0-53.0) % Plt Count 136 L (150-450) k/uL Neutrophils # 10.4 H (1.3-7.7) k/uL Lymphocytes # 0.6 L (1.0-4.8) k/uL ABG pO2 245 H (83-108) mmHg ABG Total CO2 25 H (19-24) mmol/L ABG O2 Saturation 99.4 H (94-97) % Sodium (137-145) mmol/L Glucose (74-99) mg/dL POC Glucose (mg/dL) (75-99) mg/dL Calcium (8.4-10.2) mg/dL AST (17-59) U/L Total Protein (6.3-8.2) g/dL Albumin (3.5-5.0) g/dL Crossmatch See Detail 06/03/20 06/03/20 06/03/20 Range/Units 18:38 19:53 20:50 WBC 10.9 H (3.8-10.6) k/uL RBC 3.74 L (4.30-5.90) m/uL Hgb 12.7 L (13.0-17.5) gm/dL Hct 36.7 L (39.0-53.0) % Plt Count 121 L (150-450) k/uL Neutrophils # 9.6 H (1.3-7.7) k/uL Lymphocytes # 0.5 L (1.0-4.8) k/uL ABG pO2 (83-108) mmHg ABG Total CO2 (19-24) mmol/L ABG O2 Saturation (94-97) % Sodium (137-145) mmol/L Glucose (74-99) mg/dL POC Glucose (mg/dL) 149 H 145 H (75-99) mg/dL Calcium (8.4-10.2) mg/dL AST (17-59) U/L Total Protein (6.3-8.2) g/dL Albumin (3.5-5.0) g/dL Crossmatch 06/03/20 06/03/20 06/03/20 Range/Units 20:50 22:08 23:05 WBC (3.8-10.6) k/uL RBC (4.30-5.90) m/uL Hgb (13.0-17.5) gm/dL Hct (39.0-53.0) % Plt Count (150-450) k/uL Neutrophils # (1.3-7.7) k/uL Lymphocytes # (1.0-4.8) k/uL ABG pO2 (83-108) mmHg ABG Total CO2 (19-24) mmol/L ABG O2 Saturation (94-97) % Sodium (137-145) mmol/L Glucose (74-99) mg/dL POC Glucose (mg/dL) 132 H 152 H 135 H (75-99) mg/dL Calcium (8.4-10.2) mg/dL AST (17-59) U/L Total Protein (6.3-8.2) g/dL Albumin (3.5-5.0) g/dL Crossmatch 06/04/20 06/04/20 06/04/20 Range/Units 00:30 01:03 02:08 WBC (3.8-10.6) k/uL RBC (4.30-5.90) m/uL Hgb (13.0-17.5) gm/dL Hct (39.0-53.0) % Plt Count (150-450) k/uL Neutrophils # (1.3-7.7) k/uL Lymphocytes # (1.0-4.8) k/uL ABG pO2 (83-108) mmHg ABG Total CO2 (19-24) mmol/L ABG O2 Saturation (94-97) % Sodium (137-145) mmol/L Glucose (74-99) mg/dL POC Glucose (mg/dL) 132 H 127 H 126 H (75-99) mg/dL Calcium (8.4-10.2) mg/dL AST (17-59) U/L Total Protein (6.3-8.2) g/dL Albumin (3.5-5.0) g/dL Crossmatch 06/04/20 06/04/20 06/04/20 Range/Units 03:29 04:35 04:35 WBC 10.7 H (3.8-10.6) k/uL RBC 3.79 L (4.30-5.90) m/uL Hgb 12.3 L (13.0-17.5) gm/dL Hct 37.8 L (39.0-53.0) % Plt Count 146 L (150-450) k/uL Neutrophils # 8.9 H (1.3-7.7) k/uL Lymphocytes # 0.8 L (1.0-4.8) k/uL ABG pO2 (83-108) mmHg ABG Total CO2 (19-24) mmol/L ABG O2 Saturation (94-97) % Sodium 133 L (137-145) mmol/L Glucose 123 H (74-99) mg/dL POC Glucose (mg/dL) 120 H (75-99) mg/dL Calcium 8.0 L (8.4-10.2) mg/dL AST 81 H (17-59) U/L Total Protein 5.3 L (6.3-8.2) g/dL Albumin 3.1 L (3.5-5.0) g/dL Crossmatch 06/04/20 06/04/20 06/04/20 Range/Units 04:38 05:03 06:42 WBC (3.8-10.6) k/uL RBC (4.30-5.90) m/uL Hgb (13.0-17.5) gm/dL Hct (39.0-53.0) % Plt Count (150-450) k/uL Neutrophils # (1.3-7.7) k/uL Lymphocytes # (1.0-4.8) k/uL ABG pO2 (83-108) mmHg ABG Total CO2 (19-24) mmol/L ABG O2 Saturation (94-97) % Sodium (137-145) mmol/L Glucose (74-99) mg/dL POC Glucose (mg/dL) 126 H 127 H 134 H (75-99) mg/dL Calcium (8.4-10.2) mg/dL AST (17-59) U/L Total Protein (6.3-8.2) g/dL Albumin (3.5-5.0) g/dL Crossmatch 06/04/20 06/04/20 06/04/20 Range/Units 08:44 10:07 12:31 WBC (3.8-10.6) k/uL RBC (4.30-5.90) m/uL Hgb (13.0-17.5) gm/dL Hct (39.0-53.0) % Plt Count (150-450) k/uL Neutrophils # (1.3-7.7) k/uL Lymphocytes # (1.0-4.8) k/uL ABG pO2 (83-108) mmHg ABG Total CO2 (19-24) mmol/L ABG O2 Saturation (94-97) % Sodium (137-145) mmol/L Glucose (74-99) mg/dL POC Glucose (mg/dL) 126 H 158 H 128 H (75-99) mg/dL Calcium (8.4-10.2) mg/dL AST (17-59) U/L Total Protein (6.3-8.2) g/dL Albumin (3.5-5.0) g/dL Crossmatch
[2020-06-04 20:22] LABS: Glucose,Whole Blood 145 mg/dL (75-99)
[2020-06-04] MEDS: INSULIN DETEMIR (LEVEMIR) 100 UNIT/ML SYR SQ SCH (20:35)
[2020-06-04] MEDS: SENNOSIDES-DOCUSATE SODIUM 1 EACH TAB PO SCH (20:35)
[2020-06-05] MEDS: KETOROLAC 15 MG/ML 1 ML VIAL IVP SCH ×4 (00:55→17:06)
[2020-06-05] MEDS: HEPARIN SODIUM,PORCINE 5,000 UNIT/ML 1 ML VIAL SQ SCH ×3 (00:55→16:28)
[2020-06-05 04:57] LABS: Basophils % (A) 0 %; Eosinophils % (A) 0 %; HCT 30.5 % (39.0-53.0); HGB 10.4 gm/dL (13.0-17.5); Ionized Calcium 4.8 mg/dL (4.5-5.3); Lymphocytes # (A) 0.8 k/uL (1.0-4.8); Lymphocytes % (A) 8 %; MCH 34.2 pg (25.0-35.0); MCV 100.6 fL (80.0-100.0); Mean Platelet Volume 9.8; Monocytes # (A) 0.8 k/uL (0-1.0); Monocytes % (A) 8 %; Neutrophils # (A) 7.8 k/uL (1.3-7.7); Neutrophils % (A) 82 %; Platelet Count 107 k/uL (150-450); RBC 3.03 m/uL (4.30-5.90); RDW 12.2 % (11.5-15.5); WBC 9.5 k/uL (3.8-10.6)
[2020-06-05 05:03] LABS: ALT 33 U/L (4-49); AST 54 U/L (17-59); African American GFR (CKD) >90 (>60 ml/min/1.73 sqM); Albumin 3.4 g/dL (3.5-5.0); Alkaline Phosphatase 38 U/L (38-126); Anion Gap 4 mmol/L; Blood Urea Nitrogen 23 mg/dL (9-20); Calcium 8.4 mg/dL (8.4-10.2); Carbon Dioxide 26 mmol/L (22-30); Chloride 104 mmol/L (98-107); Glucose 134 mg/dL (74-99); Non-African American GFR(CKD) >90 (>60 ml/min/1.73 sqM); Potassium 4.5 mmol/L (3.5-5.1); Sodium 134 mmol/L (137-145); Total Bilirubin 1.2 mg/dL (0.2-1.3); Total Protein 5.5 g/dL (6.3-8.2)
[2020-06-05 06:44] LABS: Glucose,Whole Blood 130 mg/dL (75-99)
[2020-06-05] MEDS: INSULIN ASPART (NovoLOG) 100 UNIT/ML VIAL SQ SCH ×4 (07:07→20:38)
--- NOTE | 2020-06-05 07:34 | P.PN ---
Subjective Progress Note Date: 06/05/20 This is a 60-year-old gentleman who follows with Dr. Virgen as his primary care provider. He has a history of retention, hyperlipidemia, daily alcohol use. Last month he was found to have a murmur and an cardiogram revealed severe eccentric mitral regurgitation with flail posterior leaflet. Normal left ventricular systolic function with ejection fraction 50-55%. He had subsequently undergone cardiac catheterization and FAIZA and no significant coronary artery disease. FAIZA did reveal again the severe eccentric mitral regurgitation and severe prolapse of P3 segment and ruptured chordae. He presented here today for elective mitral valve replacement by Dr. Carias. He had undergone a complex mitral valve repair with bola-chords 3 repair to P2 of the posterior leaflet, closure of a P2, P3 cleft and ring annuloplasty with a 38 mm Teresa is CO2 mitral ring. He is seen in the immediate postoperative period in the intensive care unit. Intubated on mechanical ventilator and currently on assist control at a rate of 16, tidal volume 500, FiO2 100% and a PEEP of 5. Initial ABGs revealed a PaO2 of 366, pCO2 of 40 and a pH of 7.39. FiO2 was titrated down to 50%. He is sedated with propofol. Victor-Shabnam catheter was not providing any accurate PA pressures and it was exchanged out by Dr. Fajardo. Still no good readings. It was left in the superior vena cava. Initial chest x-ray revealed it to be curled within the right atrium. Mild right lower lobe infiltrate. Otherwise clear. White count 11.7. Hemoglobin 12.2. Platelet count 129. Sodium 135. Potassium 4.2. Creatinine 0.80. Glucose 149. He did require insulin drip at 2.5 units per hour. Lactated Ringer's at 50 mL per hour . Received his first dose of cefazolin. The patient is seen today 06/04/2020 in follow-up on the intensive care unit. He is currently sitting up in a chair at the bedside. He is awake and alert in no distress. He is presently afebrile. Hemodynamically stable. Maintaining O2 saturations in the mid 90s on 2 L/m per nasal cannula. Chest x-ray reveals some atelectatic changes at the bases more so on the left. Chest tubes remain in place with 800 ML's out since surgery. White count 10.7. Hemoglobin 12.3. Platelets 146. Sodium 133. Potassium 4.5. Creatinine 0.76. He remains on cefazolin. Insulin drip at 1.5 units per hour. Lactated Ringer's at 50 MLS per hour. Working well with the incentive spirometer. On today's evaluation, the patient is doing well. He is stable. His chest x- ray is showing some atelectatic. The lung bases and possibly a small left. I do not appreciate any pneumothorax. The patient has [address] Output has been noted. He is postop day #2 following his mitral valve repair. He is currently on 2 Liters of oxygen with a pulse of 94%. He is having low-grade temperature of 99.9. Otherwise no temperature spikes. Likely then is sinus. Hemoglobin is 10.4. Renal function stable at creatinine of 0.8. He is using his incentive spirometer. He is pulling more than 1500 Objective - Vital Signs Vital signs: Vital Signs Temp 99.9 F H 06/05/20 04:00 Pulse 71 06/05/20 06:18 Resp 22 06/05/20 06:18 BP 111/75 06/05/20 05:00 Pulse Ox 94 L 06/05/20 06:18 Intake & Output 06/04/20 06/05/20 06/05/20 18:59 06:59 18:59 Intake Total 1940.904 672 Output Total 650 515 Balance 1290.904 157 Weight 102.3 kg 105.8 kg Intake: IV 1672 672 Albumin Human 5% 250 ml @ 1000 0 mls/hr IVPB .STK-MED [facility] Rx#:[id number] Lactated Ringers 1,000 ml 600 600 @ 20 mls/hr IV .Q24H [facility] Rx#:[id number] Pressure Bag 0.9 72 72 Intake, IV Titration 18.904 Amount Insulin Regular 100 unit 18.904 In Sodium Chloride 0.9% 100 ml @ Per Protocol IV .Q0M [facility] Rx#:[id number] Oral 250 Output: Chest Tube Drainage 390 140 Chest Tube Mediastinal 390 140 Urine 260 375 Other: Voiding Method Indwelling Catheter ABP, PAP, CO, CI - Last Documented Arterial Blood Pressure 102/48 Pulmonary Artery Pressure 24/9 Cardiac Output 6.7 Cardiac Index 2.9 - Exam GENERAL EXAM: Alert, very pleasant 6-year-old gentleman, currently sitting up in chair at bedside, on 2 L nasal cannula, comfortable in no apparent distress. HEAD: Normocephalic. EYES: Normal reaction of pupils, equal size. NOSE: Clear with pink turbinates. THROAT: No erythema or exudates. NECK: No masses, no JVD. CHEST: Sternal dressing dry and intact. Heart Hugger in place. Chest tubes in place. LUNGS: Equal air entry with faint crackles in the posterior bases. CVS: S1 and S2 normal with no audible murmur, regular rhythm. ABDOMEN: No hepatosplenomegaly, normal bowel sounds, no guarding or rigidity. SPINE: No scoliosis or deformity SKIN: No rashes CENTRAL NERVOUS SYSTEM: No focal deficits, tone is normal in all 4 extremities. EXTREMITIES: There is no peripheral edema. No clubbing, no cyanosis. Peripheral pulses are intact. - Labs CBC & Chem 7: 06/05/20 04:48 06/05/20 04:48 Labs: Abnormal Lab Results - Last 24 Hours (Table) 06/04/20 06/04/20 06/04/20 Range/Units 08:44 10:07 12:31 RBC (4.30-5.90) m/uL Hgb (13.0-17.5) gm/dL Hct (39.0-53.0) % MCV (80.0-100.0) fL Plt Count (150-450) k/uL Neutrophils # (1.3-7.7) k/uL Lymphocytes # (1.0-4.8) k/uL Sodium (137-145) mmol/L BUN (9-20) mg/dL Glucose (74-99) mg/dL POC Glucose (mg/dL) 126 H 158 H 128 H (75-99) mg/dL Total Protein (6.3-8.2) g/dL Albumin (3.5-5.0) g/dL 06/04/20 06/05/20 06/05/20 Range/Units 20:21 04:48 04:48 RBC 3.03 L (4.30-5.90) m/uL Hgb 10.4 L (13.0-17.5) gm/dL Hct 30.5 L (39.0-53.0) % MCV 100.6 H (80.0-100.0) fL Plt Count 107 L (150-450) k/uL Neutrophils # 7.8 H (1.3-7.7) k/uL Lymphocytes # 0.8 L (1.0-4.8) k/uL Sodium 134 L (137-145) mmol/L BUN 23 H (9-20) mg/dL Glucose 134 H (74-99) mg/dL POC Glucose (mg/dL) 145 H (75-99) mg/dL Total Protein 5.5 L (6.3-8.2) g/dL Albumin 3.4 L (3.5-5.0) g/dL 06/05/20 Range/Units 06:43 RBC (4.30-5.90) m/uL Hgb (13.0-17.5) gm/dL Hct (39.0-53.0) % MCV (80.0-100.0) fL Plt Count (150-450) k/uL Neutrophils # (1.3-7.7) k/uL Lymphocytes # (1.0-4.8) k/uL Sodium (137-145) mmol/L BUN (9-20) mg/dL Glucose (74-99) mg/dL POC Glucose (mg/dL) 130 H (75-99) mg/dL Total Protein (6.3-8.2) g/dL Albumin (3.5-5.0) g/dL Assessment and Plan Plan: 1 Severe mitral regurgitation with torn chordae to P2 of the posterior leaflet, status post complex mitral valve repair. Postoperative day #2 output from the mediastinal tubes are minimal. He is using incentive spirometer. His hemodynamics stable. She is in normal sinus rhythm. 2 Mechanical ventilatory support, postoperative, expected outcome of surgery. Extubated on postoperative day #0. On 2 L nasal cannula. 3 History of hypertension 4 Hyperlipidemia 5 History of daily alcohol use. 6 Nonsmoker Plan: Remove the mediastinal chest tubes We will do arterial line Remove the Caro catheter Working well with the incentive spirometer Increase his activity as tolerated We will continue to follow and make further recommendations based on his clinical status Possible transfer to a telemetry unit today.
--- NOTE | 2020-06-05 08:11 | XR ---
EXAMINATION TYPE: XR chest 1V portable DATE OF EXAM: 06/05/2020 COMPARISON: 06/04/2020 INDICATION: Postop cardiac surgery TECHNIQUE: Single frontal view of the chest is obtained. FINDINGS: The heart size is prominent. The pulmonary vasculature is normal. Bibasilar infiltrates are present. This is worsening on the right. 2 mediastinal tubes are present. Sternotomy wires from cardiac valve surgery are evident. Right centr al venous catheter sheath remains present IMPRESSION: 1. Worsening right lower lobe infiltrate. Left lower lobe infiltrate remains stable. 2. Lines and catheters are stable.
[2020-06-05] MEDS: IPRATROPIUM-ALBUTEROL 3 ML NEB INHALATION SCH ×4 (08:15→20:32)
[2020-06-05] MEDS: METOPROLOL TARTRATE 25 MG TAB PO SCH ×2 (09:04→20:39)
[2020-06-05] MEDS: ASPIRIN 325 MG TAB PO SCH (09:05)
[2020-06-05] MEDS: THIAMINE 100 MG TAB PO SCH (09:05)
[2020-06-05] MEDS: FOLIC ACID 1 MG TAB PO SCH (09:05)
[2020-06-05] MEDS: AMIODARONE 200 MG TAB PO SCH ×2 (09:05→20:39)
[2020-06-05] MEDS: PANTOPRAZOLE 40 MG TABLET PO SCH (09:05)
[2020-06-05] MEDS: ATORVASTATIN 40 MG TAB PO SCH (09:05)
[2020-06-05] MEDS: CLOPIDOGREL 75 MG TAB PO SCH (09:05)
[2020-06-05] MEDS ORDERED: HYDROcodone/APAP 5-325MG 1 EACH TAB PO PRN (10:54)
--- NOTE | 2020-06-05 11:22 | P.PN ---
Subjective Progress Note Date: 06/05/20 Principal diagnosis: Severe mitral regurgitation with torn chordae to P2 of the posterior leaflet. Previous medical history of hypertension, hyperlipidemia, daily EtOH use, BPH, l ifelong nonsmoker with preoperative FEV1 83% of predicted POD #2 complex mitral valve repair with bola cords 3, repair to P2 the posterior leaflet, closure of P2, P3 cleft and ring annuloplasty with 38 mm Teresa physio-2 mitral ring, clip ligation of the left atrial appendage with 40 mm AtriClip, intraoperative transesophageal echocardiogram. The patient is currently sitting up in a recliner on the intensive care unit in no acute distress. States post surgical pain is controlled on current m edication regimen, denies shortness of breath. Actively using incentive spirometry. Remains in normal sinus rhythm and hemodynamically stable. Right internal jugular Cordis, right radial arterial line, mediastinal chest tubes present. No new concerns. Objective - Vital Signs Vital signs: Vital Signs Temp 99.5 F 06/05/20 08:00 Pulse 71 06/05/20 10:02 Resp 19 06/05/20 10:02 BP 118/62 06/05/20 10:02 Pulse Ox 97 06/05/20 10:02 Intake & Output 06/04/20 06/05/20 06/05/20 18:59 06:59 18:59 Intake Total 1940.904 672 414 Output Total 650 515 125 Balance 1290.904 157 289 Weight 102.3 kg 105.8 kg Intake: IV 1672 672 174 Albumin Human 5% 250 ml @ 1000 0 mls/hr IVPB .STK-[facility] Rx#:[id number] Lactated Ringers 1,000 ml 600 600 162 @ 20 mls/hr IV .Q24H [facility] Rx#:[id number] Pressure Bag 0.9 72 72 12 Intake, IV Titration 18.904 Amount Insulin Regular 100 unit 18.904 In Sodium Chloride 0.9% 100 ml @ Per Protocol IV .Q0M [facility] Rx#:[id number] Oral 250 240 Output: Chest Tube Drainage 390 140 30 Chest Tube Mediastinal 390 140 30 Urine 260 375 95 Other: Voiding Method Indwelling Catheter Indwelling Catheter Indwelling Catheter ABP, PAP, CO, CI - Last Documented Arterial Blood Pressure 114/49 Pulmonary Artery Pressure 24/9 Cardiac Output 6.7 Cardiac Index 2.9 - Constitutional General appearance: Present: cooperative, no acute distress - Respiratory Details: Lungs sounds clear but diminished bilaterally. Respirations even, nonlabored. Currently on room air with oxygen saturation 97%. Able to achieve 1500 mL on his incentive spirometry. Strong cough. - Cardiovascular Details: S1, S2 present. Regular rate and rhythm, sinus rhythm on telemetry. Sternum stable. Ventricular epicardial pacemaker wires present, grounded. Palpable peripheral pulses bilaterally. No edema present. No calf pain or tenderness noted. Heart hugger placed patient demonstrating appropriate use. Antiembolism stockings, SCDs present. Right internal jugular Cordis, right radial arterial line present. Mediastinal chest tubes present to continuous wall suction, 140 mL serosanguineous drainage overnight, 600 mL the last 24 hours, no air leaks present. - Gastrointestinal Gastrointestinal Comment(s): Abdomen soft, nontender, nondistended. Active bowel sounds present 4 quadrants. Tolerating diet. Positive flatus - Genitourinary Genitourinary Comment(s): Caro present draining clear, yellow urine. Output 30-40 mL per hour overnight - Integumentary Integumentary Comment(s): Skin is warm and dry with evidence of good perfusion. Anterior chest incision well approximated and covered with dry intact dressing - Neurologic Neurologic: Present: CNII-XII intact - Musculoskeletal Musculoskeletal: Present: gait normal, strength equal bilaterally - Psychiatric Psychiatric: Present: A&O x's 3, appropriate affect, intact judgment & insight - Allied health notes Allied health notes reviewed: nursing - Labs CBC & Chem 7: 06/05/20 04:48 06/05/20 04:48 Labs: Abnormal Lab Results - Last 24 Hours (Table) 06/04/20 06/04/20 06/05/20 Range/Units 12:31 20:21 04:48 RBC 3.03 L (4.30-5.90) m/uL Hgb 10.4 L (13.0-17.5) gm/dL Hct 30.5 L (39.0-53.0) % MCV 100.6 H (80.0-100.0) fL Plt Count 107 L (150-450) k/uL Neutrophils # 7.8 H (1.3-7.7) k/uL Lymphocytes # 0.8 L (1.0-4.8) k/uL Sodium (137-145) mmol/L BUN (9-20) mg/dL Glucose (74-99) mg/dL POC Glucose (mg/dL) 128 H 145 H (75-99) mg/dL Total Protein (6.3-8.2) g/dL Albumin (3.5-5.0) g/dL 06/05/20 06/05/20 Range/Units 04:48 06:43 RBC (4.30-5.90) m/uL Hgb (13.0-17.5) gm/dL Hct (39.0-53.0) % MCV (80.0-100.0) fL Plt Count (150-450) k/uL Neutrophils # (1.3-7.7) k/uL Lymphocytes # (1.0-4.8) k/uL Sodium 134 L (137-145) mmol/L BUN 23 H (9-20) mg/dL Glucose 134 H (74-99) mg/dL POC Glucose (mg/dL) 130 H (75-99) mg/dL Total Protein 5.5 L (6.3-8.2) g/dL Albumin 3.4 L (3.5-5.0) g/dL - Imaging and Cardiology Chest x-ray: report reviewed, image reviewed Assessment and Plan Assessment: 1. Severe mitral regurgitation with torn chordae to P2 of the posterior leaflet, status post complex mitral valve repair with bola cords 3, repair to P2 of the posterior leaflet, closure of P2, P3 cleft and ring annuloplasty with 38 mm Teresa physio-2 mitral ring 2. History of hypertension 3. Hyperlipidemia 4. Daily EtOH use, 3 beers daily with no history of withdrawal 5. BPH 6. Lifelong nonsmoker with preoperative FEV1 83% of predicted Plan: 1. Continue aspirin, statin, Plavix, beta brannon therapy. Will increase beta brannon as tolerated 2. Continue amiodarone for A. fib prophylaxis 3. Encourage incentive spirometry 10 times every hour while awake. Bronchodilators per pulmonology 4. Increase activity, ambulate as tolerated. PT/OT/cardiac rehab consulted 5. Will monitor daily labs and x-rays. Electrolyte replacement per protocol. Will give Lasix 20 mg IV push 2 doses 6. Insulin management per primary care service. Patient is not diabetic preoperative hemoglobin A1c 4.9% 7. GI/DVT prophylaxis 8. Pain control with current medication regimen 9. Chest tube discontinued without incident. 10. Caro catheter discontinued, may bladder scan and straight cath for greater than 300 mL residual 11. Strict accurate intake and output. Daily weights using stand up scale, not bed scale 12. Discontinue Cordis, arterial line 13. CIWA protocol. Continue thiamine and folic acid 14. Transfer orders placed for 3 S. cardiac stepdown unit. May transfer when bed available 15. Discharge planning in progress. Anticipate discharge to home with home care in the next 24-48 hours 16. More recommendations to follow based on patient's progress Time with Patient: Greater than 30
--- NOTE | 2020-06-05 11:29 | P.PN ---
Subjective Progress Note Date: 06/05/20 60-year-old male one of my office patient with past medical history of hypertension hyperlipidemia who was found 4 weeks ago to have severe mitral regurgitation with flail posterior leaflet of the mitral valve initially was diagnosed clinically with a loud murmur echocardiogram was performed and showed the severity of the mitral regurgitation. 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 Patient had no coronary artery disease on heart catheter. Patient was referred to cardiothoracic surgery seen Dr. Carias and ended up coming for mitral valve repair and ring annuloplasty. Post surgery he was on mechanical ventilation and shortly after was extubated successfully with no major complication. Patient had chest tube otherwise hemodynamically stable. 06/04: Patient is resting essentially in bed without any complaints. he is hemodynamically stable and afebrile. WT 10.7, hemoglobin 12.3, potassium 4.5, BUN 20, creatinine 0.76, blood glucose levels range from 130s to 160s. Urinary output is 40 ML's per hour. Actively using incentive spirometer. Remains in normal sinus rhythm. Did have some PACs yesterday. Maintaining O2 saturations in the mid 90s on 2 L/m per nasal cannula. Chest x-ray reveals some atelectatic changes at the bases more so on the left. Chest tubes remain in place with 800 ML's out since surgery. 06/05: She is on resting in a chair without any complaints of 19. He has seemed stable and afebrile. His Cordis and chest tube was removed today. Epicardial leads are in place will be removed tomorrow. Patient is set to transfer to the floor. He is ready to ambulate however due to Covid he is unable to ambulate within the ICU. Possible discharge for him on Saturday. Review of Systems CONSTITUTIONAL: Well-developed no acute respiratory distress. EYES: No icterus sclerae, no conjunctivitis. EARS, NOSE, MOUTH, THROAT, and FACE: No sore throat, lymphadenopathy, carotid bruits or deformity. RESPIRATORY: Mild shortness of breath exertion, 2 chest tube post extubation after surgery. CARDIOVASCULAR: No CP, Palpitation, PND, Orthopnea, or angina. Post mitral valve repair with annuloplasty GASTROINTESTINAL: No Abd pain, Nausea or vomiting, no Diarrhea or constipation, No GI Bleed, no distention or masses. GENITOURINARY: Negative for Hematuria or UTI, no kidney stones. INTEGUMENT/BREAST: Negative for any muscular injury with mild osteoarthritis.. HEMATOLOGIC/LYMPHATIC: Negative for bleed or purpura. MUSCULOSKELTAL: Negative for Myalgia or arthralgia. NEURLOGICAL: No LOC, Sz or syncope, blurred vision dizziness or abnormality.. BEHAVIORAL/PSYCH: Negative. ENDOCRINE: Negative. Physical exam: General Appearance: Alert, cooperative, no distress, appears stated age. Neck HEENT: Supple, no lymphadenopathy, no thyroid enlargement, no carotid bruits. Lungs: Decreased breath sounds specially in the left side no crackles or wheezes. Chest Wall: Decrease expansion with deep inspiration , incision in the midline looks fine with no bleed, still have 2 chest tube Heart: Regular rate and rhythm, S1, S2 normal, no murmur, rub or gallop. Back: Symmetric, no curvature, ROM normal, no CVA tenderness. Abdomen: Soft, non-tender, bowel sounds active all four quadrants, no masses, no organomegaly. Extremities: Extremities normal, atraumatic, no cyanosis or edema. Pulses: 2+ and symmetric. Skin: Skin color, texture, tugor normal, no rashes or lesions. Neurologic: Alert oriented x3 cranial nerves II through XII intact, no motor deficit, no abnormal balance or gait. Assessment/plan: 1 post mitral valve repair of the posterior leaflet with valve annuloplasty: Postop day 2, Patient is doing well so far was extubated successfully is off mechanical ventilation and hemodynamically stable pain is under control. 2 hypertension: Was well controlled on lisinopril 10 mg a day. 3 hyperlipidemia: Was on Crestor which should be started in the next 24 hours. 4 BPH: Watch for any urinary retention. 5 severe dyspnea: Was mostly secondary to severe mitral regurgitation and flail valve should improve after surgery. 6 post surgery mechanical ventilation: With successful extubation shortly after surgery with no complications so far. 7 hyperglycemia: Discontinue insulin drip, switched to Accu-Chek with sliding scale coverage and Levemir 5 units daily at bedtime. CODE STATUS: Full code Dr. Carias thank you very much for the consult if I can be any further help to please let me know. Impression and plan of care have been directed as dictated by the signing phys katya. Adelina Holliday nurse practitioner acting as scribe for signing physician. Objective - Vital Signs Vital signs: Vital Signs Temp 99.5 F 06/05/20 08:00 Pulse 71 06/05/20 10:02 Resp 19 06/05/20 10:02 BP 118/62 06/05/20 10:02 Pulse Ox 97 06/05/20 10:02 Intake & Output 06/04/20 06/05/20 06/05/20 18:59 06:59 18:59 Intake Total 1940.904 672 414 Output Total 650 515 125 Balance 1290.904 157 289 Weight 102.3 kg 105.8 kg Intake: IV 1672 672 174 Albumin Human 5% 250 ml @ 1000 0 mls/hr IVPB .[facility] Rx#:[id number] Lactated Ringers 1,000 ml 600 600 162 @ 20 mls/hr IV .Q24H [facility] Rx#:[id number] Pressure Bag 0.9 72 72 12 Intake, IV Titration 18.904 Amount Insulin Regular 100 unit 18.904 In Sodium Chloride 0.9% 100 ml @ Per Protocol IV .Q0M [facility] Rx#:[id number] Oral 250 240 Output: Chest Tube Drainage 390 140 30 Chest Tube Mediastinal 390 140 30 Urine 260 375 95 Other: Voiding Method Indwelling Catheter Indwelling Catheter Indwelling Catheter ABP, PAP, CO, CI - Last Documented Arterial Blood Pressure 114/49 Pulmonary Artery Pressure 24/9 Cardiac Output 6.7 Cardiac Index 2.9 - Labs CBC & Chem 7: 06/05/20 04:48 06/05/20 04:48 Labs: Abnormal Lab Results - Last 24 Hours (Table) 06/04/20 06/04/20 06/05/20 Range/Units 12:31 20:21 04:48 RBC 3.03 L (4.30-5.90) m/uL Hgb 10.4 L (13.0-17.5) gm/dL Hct 30.5 L (39.0-53.0) % MCV 100.6 H (80.0-100.0) fL Plt Count 107 L (150-450) k/uL Neutrophils # 7.8 H (1.3-7.7) k/uL Lymphocytes # 0.8 L (1.0-4.8) k/uL Sodium (137-145) mmol/L BUN (9-20) mg/dL Glucose (74-99) mg/dL POC Glucose (mg/dL) 128 H 145 H (75-99) mg/dL Total Protein (6.3-8.2) g/dL Albumin (3.5-5.0) g/dL 06/05/20 06/05/20 Range/Units 04:48 06:43 RBC (4.30-5.90) m/uL Hgb (13.0-17.5) gm/dL Hct (39.0-53.0) % MCV (80.0-100.0) fL Plt Count (150-450) k/uL Neutrophils # (1.3-7.7) k/uL Lymphocytes # (1.0-4.8) k/uL Sodium 134 L (137-145) mmol/L BUN 23 H (9-20) mg/dL Glucose 134 H (74-99) mg/dL POC Glucose (mg/dL) 130 H (75-99) mg/dL Total Protein 5.5 L (6.3-8.2) g/dL Albumin 3.4 L (3.5-5.0) g/dL
[2020-06-05] MEDS: FUROSEMIDE 10 MG/ML 2 ML VIAL IV SCH ×2 (13:06→20:39)
[2020-06-05] MEDS ORDERED: FUROSEMIDE 10 MG/ML 4 ML VIAL ONE (13:09)
--- NOTE | 2020-06-05 14:34 | P.PN ---
Subjective HISTORY OF PRESENTING ILLNESS This is a pleasant 60-year-old male past medical history significant for HTN, hyperlipidemia, severe mitral regurgitation with flail posterior leaflet, mild nonobstructive coronary artery disease. He follows in the office with Dr Camejo. Patient admits he had been fairly asymptomatic however was noted to have increased blood pressure and after seeing his primary care physician and echo was performed which showed severe acute regurgitation with flail. Therefore heart catheterization and FAIZA were performed. Patient did undergo successful mitral valve repair with bola cords 3, left atrial appendage atrial clip and a ring annuloplasty with a 30 mm Teresa mitral ring. Patient admits that overall he has been doing well. He does admit to some chest discomfort around the incision site. He did have an EKG performed which does show mild diffuse proximally [address] elevation consistent with pericarditis. He a dditionally had a 9 beat run of wide complex tachycardia which was irregular, questionable small run of A. fib/SVT with aberancy given the irregularity. He was asymptomatic. Therefore amiodarone was placed. 06/05/2020 Patient seen and examined. Patient denies any significant chest pain or pressu re. Still some soreness around his incision site. No shortness breath. Patient is anxious to have chest tubes removed today. REVIEW OF SYSTEMS At the time of my exam: CONSTITUTIONAL: Denies fever or chills. CARDIOVASCULAR: Denies chest pain, shortness of breath, orthopnea, PND or palpitations. RESPIRATORY: Denies cough. GASTROINTESTINAL: Denies abdominal pain, diarrhea, constipation, nausea or vomiting. MUSCULOSKELETAL: Denies myalgias. NEUROLOGIC: Denies numbness, tingling or weakness. ENDOCRINE: Denies fatigue, weight change, polydipsia or polyurina. GENITOURINARY: Denies burning, hematuria or urgency with micturation. HEMATOLOGIC: Denies history of anemia or bleeding. PHYSICAL EXAMINATION Blood pressure 118/62 heart rate 71 afebrile and maintaining oxygen saturation on room air. CONSTITUTIONAL: No apparent distress. HEENT: Head is normocephalic. Pupils are equal, round. Sclerae anicteric. Mucous membranes of the mouth are moist. No JVD. No carotid bruit. CHEST EXAMINATION: Lungs are clear to auscultation. No chest wall tenderness is noted on palpation or with deep breathing. HEART EXAMINATION: Regular rate and rhythm. S1, S2 heard. No murmurs, gallops or rub. ABDOMEN: Soft, nontender. Positive bowel sounds. EXTREMITIES: 2+ peripheral pulses, no lower extremity edema and no calf tenderness. NEUROLOGIC EXAMINATION: Patient is awake, alert and oriented x3. ASSESSMENT 1. Severe mitral regurgitation with P2 flail status post mitral valve repair and ring annuloplasty 06/03/2020 2. EKG consistent with pericarditis, patient remains relatively asymptomatic. 3. 9 beat run wide-complex tachycardia, suspect SVT/Afib with aberancy given irregularity 4. Alcohol use 5. Hypertension 6. Hyperlipidemia PLAN Patient has been progressing well. Continue amiodarone and beta brannon. Continue supportive care. Continue aspirin and Plavix per cardiothoracic surgery. Metoprolol 25 twice a day. Objective - Vital Signs Vital signs: Vital Signs Temp 99.5 F 06/05/20 08:00 Pulse 70 06/05/20 11:37 Resp 19 06/05/20 10:02 BP 118/62 06/05/20 10:02 Pulse Ox 97 06/05/20 10:02 Intake & Output 06/04/20 06/05/20 06/05/20 18:59 06:59 18:59 Intake Total 1940.904 672 654 Output Total 650 515 125 Balance 1290.904 157 529 Weight 102.3 kg 105.8 kg Intake: IV 1672 672 174 Albumin Human 5% 250 ml @ 1000 0 mls/hr IVPB [facility] Rx#:[id number] Lactated Ringers 1,000 ml 600 600 162 @ 20 mls/hr IV .Q24H [facility] Rx#:[id number] Pressure Bag 0.9 72 72 12 Intake, IV Titration 18.904 Amount Insulin Regular 100 unit 18.904 In Sodium Chloride 0.9% 100 ml @ Per Protocol IV .Q0M [facility] Rx#:[id number] Oral 250 480 Output: Chest Tube Drainage 390 140 30 Chest Tube Mediastinal 390 140 30 Urine 260 375 95 Other: Voiding Method Indwelling Catheter Indwelling Catheter Indwelling Catheter ABP, PAP, CO, CI - Last Documented Arterial Blood Pressure 114/49 Pulmonary Artery Pressure 24/9 Cardiac Output 6.7 Cardiac Index 2.9 - Labs CBC & Chem 7: 06/05/20 04:48 06/05/20 04:48 Labs: Abnormal Lab Results - Last 24 Hours (Table) 06/04/20 06/05/20 06/05/20 Range/Units 20:21 04:48 04:48 RBC 3.03 L (4.30-5.90) m/uL Hgb 10.4 L (13.0-17.5) gm/dL Hct 30.5 L (39.0-53.0) % MCV 100.6 H (80.0-100.0) fL Plt Count 107 L (150-450) k/uL Neutrophils # 7.8 H (1.3-7.7) k/uL Lymphocytes # 0.8 L (1.0-4.8) k/uL Sodium 134 L (137-145) mmol/L BUN 23 H (9-20) mg/dL Glucose 134 H (74-99) mg/dL POC Glucose (mg/dL) 145 H (75-99) mg/dL Total Protein 5.5 L (6.3-8.2) g/dL Albumin 3.4 L (3.5-5.0) g/dL 06/05/20 Range/Units 06:43 RBC (4.30-5.90) m/uL Hgb (13.0-17.5) gm/dL Hct (39.0-53.0) % MCV (80.0-100.0) fL Plt Count (150-450) k/uL Neutrophils # (1.3-7.7) k/uL Lymphocytes # (1.0-4.8) k/uL Sodium (137-145) mmol/L BUN (9-20) mg/dL Glucose (74-99) mg/dL POC Glucose (mg/dL) 130 H (75-99) mg/dL Total Protein (6.3-8.2) g/dL Albumin (3.5-5.0) g/dL
[2020-06-05] MEDS: DEXTROSE 5% IN WATER 100 ML with AMIODARONE 150 MG IV ONE ×2 (17:01→18:19)
[2020-06-05 17:05] LABS: Glucose,Whole Blood 128 mg/dL (75-99)
[2020-06-05] MEDS: DEXTROSE 5% IN WATER 100 ML with AMIODARONE 150 MG IV PRN ×2 (17:30→17:34)
[2020-06-05] MEDS ORDERED: HYALURONIDASE, HUMAN RECOMB 150 UNIT/ML 1 ML VIAL SQ ONE (17:58)
[2020-06-05] MEDS ORDERED: DEXTROSE 5% IN WATER 100 ML with AMIODARONE 150 MG IV ONE (19:35)
[2020-06-05 20:25] LABS: Glucose,Whole Blood 163 mg/dL (75-99)
[2020-06-05] MEDS: INSULIN DETEMIR (LEVEMIR) 100 UNIT/ML SYR SQ SCH (20:38)
[2020-06-05] MEDS: SENNOSIDES-DOCUSATE SODIUM 1 EACH TAB PO SCH (20:39)
[2020-06-06] MEDS: KETOROLAC 15 MG/ML 1 ML VIAL IVP SCH ×3 (01:15→13:06)
[2020-06-06] MEDS: METOPROLOL TARTRATE 25 MG TAB PO SCH (01:17)
[2020-06-06] MEDS: HEPARIN SODIUM,PORCINE 5,000 UNIT/ML 1 ML VIAL SQ SCH ×3 (01:17→17:07)
[2020-06-06 03:33] LABS: HCT 29.2 % (39.0-53.0); HGB 9.7 gm/dL (13.0-17.5); MCH 33.2 pg (25.0-35.0); MCHC 33.1 g/dL (31.0-37.0); MCV 100.1 fL (80.0-100.0); Mean Platelet Volume 8.8; Platelet Count 118 k/uL (150-450); RBC 2.91 m/uL (4.30-5.90); RDW 12.5 % (11.5-15.5); WBC 9.5 k/uL (3.8-10.6)
[2020-06-06 03:42] LABS: ALT 54 U/L (4-49); AST 73 U/L (17-59); African American GFR (CKD) >90 (>60 ml/min/1.73 sqM); Albumin 3.2 g/dL (3.5-5.0); Alkaline Phosphatase 68 U/L (38-126); Anion Gap 4 mmol/L; Blood Urea Nitrogen 33 mg/dL (9-20); Calcium 8.4 mg/dL (8.4-10.2); Carbon Dioxide 27 mmol/L (22-30); Chloride 101 mmol/L (98-107); Glucose 124 mg/dL (74-99); Magnesium 2.4 mg/dL (1.6-2.3); Non-African American GFR(CKD) 81 (>60 ml/min/1.73 sqM); Potassium 4.3 mmol/L (3.5-5.1); Sodium 132 mmol/L (137-145); Total Bilirubin 0.6 mg/dL (0.2-1.3); Total Protein 5.5 g/dL (6.3-8.2)
[2020-06-06] MEDS ORDERED: ACETAMINOPHEN TAB 325 MG TAB PO PRN (06:44)
[2020-06-06 07:01] LABS: Glucose,Whole Blood 106 mg/dL (75-99)
[2020-06-06] MEDS: IPRATROPIUM-ALBUTEROL 3 ML NEB INHALATION SCH ×4 (07:06→19:44)
[2020-06-06] MEDS: INSULIN ASPART (NovoLOG) 100 UNIT/ML VIAL SQ SCH ×4 (07:08→20:12)
[2020-06-06] MEDS: PANTOPRAZOLE 40 MG TABLET PO SCH (07:10)
--- NOTE | 2020-06-06 07:24 | XR ---
EXAMINATION TYPE: XR chest 1V DATE OF EXAM: 06/06/2020 HISTORY: Shortness of breath. COMPARISON: 06/05/2020 TECHNIQUE: Single view of the chest is submitted. FINDINGS: Demonstrated are scattered senescent parenchymal change. Basilar atelectasis persist although there is interval improvement. Mediastinal drains have been stephan freddy. No evidence for pneumothorax. The heart is stable. Hilar and mediastinal structures are within normal limits. Degenerative changes are seen of the dorsal spine. IMPRESSION: 1. Basilar atelectasis persist although there is interval improvement. Mediastinal drains have been removed. No evidence for pneumothorax.
[2020-06-06] MEDS ORDERED: DEXTROSE 5% IN WATER 100 ML with AMIODARONE 150 MG IV ONE (08:59)
[2020-06-06] MEDS: THIAMINE 100 MG TAB PO SCH (09:02)
[2020-06-06] MEDS: FUROSEMIDE 10 MG/ML 2 ML VIAL IV SCH (09:02)
[2020-06-06] MEDS: METOPROLOL TARTRATE 50 MG TAB PO SCH ×2 (09:02→20:06)
[2020-06-06] MEDS: FOLIC ACID 1 MG TAB PO SCH (09:02)
[2020-06-06] MEDS: ASPIRIN 325 MG TAB PO SCH (09:02)
[2020-06-06] MEDS: CLOPIDOGREL 75 MG TAB PO SCH (09:02)
[2020-06-06] MEDS: AMIODARONE 200 MG TAB PO SCH ×2 (09:03→20:07)
[2020-06-06] MEDS: ATORVASTATIN 40 MG TAB PO SCH (09:03)
--- NOTE | 2020-06-06 10:47 | P.PN ---
Subjective Progress Note Date: 06/06/20 Principal diagnosis: Severe mitral regurgitation with torn chordae to P2 of the posterior leaflet. Previous medical history of hypertension, hyperlipidemia, daily EtOH use, BPH, l ifelong nonsmoker with preoperative FEV1 83% of predicted POD #2 complex mitral valve repair with bola cords 3, repair to P2 the posterior leaflet, closure of P2, P3 cleft and ring annuloplasty with 38 mm Teresa physio-2 mitral ring, clip ligation of the left atrial appendage with 40 mm AtriClip, intraoperative transesophageal echocardiogram. Paroxysmal atrial fibrillation, unexpected but common condition after open heart surgery The patient is currently sitting up in a recliner on the intensive care unit in no acute distress. States post surgical pain is controlled on current medication regimen, denies shortness of breath. Actively using incentive spirometry. Patient has been in and out of sinus rhythm, atrial fibrillation with controlled rate, and atrial flutter with rate in the 120s to 130s. He has received IV boluses of amiodarone, remains on oral amiodarone, Lopressor increa sed. Blood pressure has remained stable and he has remained asymptomatic with his rhythm changes. Transfer orders were placed yesterday for 3 separate cardiac stepdown unit, there is no bed available. He did have extravasation of 1 amiodarone bolus to his right forearm arm with IV being subq, hyaluronidase was given subcu, tissue is pink, warm, nonpainful, very minimal swelling present, no evidence of tissue necrosis. Objective - Vital Signs Vital signs: Vital Signs Temp 99 F 06/06/20 00:00 Pulse 132 H 06/06/20 07:17 Resp 21 06/06/20 03:00 BP 102/59 06/06/20 03:00 Pulse Ox 97 06/06/20 03:00 Intake & Output 06/05/20 06/06/20 06/06/20 18:59 06:59 18:59 Intake Total 654 500 Output Total 975 535 Balance -321 -35 Weight 105.6 kg Intake: IV 174 350 Amiodarone Bolus 300 Lactated Ringers 1,000 ml 162 50 @ 20 mls/hr IV .Q24H [facility] Rx#:[id number] Pressure Bag 0.9 12 Oral 480 150 Output: Chest Tube Drainage 30 Chest Tube Mediastinal 30 Urine 945 535 Other: Voiding Method Urinal Urinal # Voids 2 ABP, PAP, CO, CI - Last Documented Arterial Blood Pressure 114/49 Pulmonary Artery Pressure 24/9 Cardiac Output 6.7 Cardiac Index 2.9 - Constitutional General appearance: Present: cooperative, no acute distress - Respiratory Details: Lungs sounds clear bilaterally. Respirations even, nonlabored. Currently on room air with oxygen saturation 97%. Able to achieve 1500 mL on his incentive spirometry. Strong productive cough. - Cardiovascular Details: S1, S2 present. Regular rate and rhythm currently although he has been transitioning between sinus, controlled atrial fibrillation, and uncontrolled atrial flutter. Sternum stable. Ventricular epicardial pacemaker wires present, grounded. Palpable peripheral pulses bilaterally. No edema present. No calf pain or tenderness noted. Heart hugger placed patient demonstrating del ropriate use. Antiembolism stockings, SCDs present. - Gastrointestinal Gastrointestinal Comment(s): Abdomen soft, nontender, nondistended. Active bowel sounds present 4 quadrants. Tolerating diet. Positive flatus - Genitourinary Genitourinary Comment(s): Caro discontinued yesterday. Patient has voided clear, yellow urine, output 1480 mL in the last 24 hours - Integumentary Integumentary Comment(s): Skin is warm and dry with evidence of good perfusion. Anterior chest incision well approximated and covered with dry intact dressing. Right arm former IV site pink, warm, minimal edema, no evidence of necrosis - Neurologic Neurologic: Present: CNII-XII intact - Musculoskeletal Musculoskeletal: Present: gait normal, strength equal bilaterally - Psychiatric Psychiatric: Present: A&O x's 3, appropriate affect, intact judgment & insight - Allied health notes Allied health notes reviewed: nursing - Labs CBC & Chem 7: 06/06/20 03:15 06/06/20 03:15 Labs: Abnormal Lab Results - Last 24 Hours (Table) 06/05/20 06/05/20 06/06/20 Range/Units 17:03 20:23 03:15 RBC 2.91 L (4.30-5.90) m/uL Hgb 9.7 L (13.0-17.5) gm/dL Hct 29.2 L (39.0-53.0) % MCV 100.1 H (80.0-100.0) fL Plt Count 118 L (150-450) k/uL Sodium (137-145) mmol/L BUN (9-20) mg/dL Glucose (74-99) mg/dL POC Glucose (mg/dL) 128 H 163 H (75-99) mg/dL Magnesium (1.6-2.3) mg/dL AST (17-59) U/L ALT (4-49) U/L Total Protein (6.3-8.2) g/dL Albumin (3.5-5.0) g/dL 06/06/20 06/06/20 Range/Units 03:15 06:59 RBC (4.30-5.90) m/uL Hgb (13.0-17.5) gm/dL Hct (39.0-53.0) % MCV (80.0-100.0) fL Plt Count (150-450) k/uL Sodium 132 L (137-145) mmol/L BUN 33 H (9-20) mg/dL Glucose 124 H (74-99) mg/dL POC Glucose (mg/dL) 106 H (75-99) mg/dL Magnesium 2.4 H (1.6-2.3) mg/dL AST 73 H (17-59) U/L ALT 54 H (4-49) U/L Total Protein 5.5 L (6.3-8.2) g/dL Albumin 3.2 L (3.5-5.0) g/dL - Imaging and Cardiology Chest x-ray: report reviewed, image reviewed Assessment and Plan Assessment: 1. Severe mitral regurgitation with torn chordae to P2 of the posterior leaflet, status post complex mitral valve repair with bola cords 3, repair to P2 of the posterior leaflet, closure of P2, P3 cleft and ring annuloplasty with 38 mm Teresa physio-2 mitral ring 2. History of hypertension 3. Hyperlipidemia 4. Daily EtOH use, 3 beers daily with no history of withdrawal 5. BPH 6. Lifelong nonsmoker with preoperative FEV1 83% of predicted 7. Paroxysmal atrial fibrillation/flutter Plan: 1. Continue aspirin, statin, Plavix, beta brannon therapy. Will increase beta brannon as tolerated, increased to 50 mg twice daily today 2. Continue amiodarone for A. fib prophylaxis. We will start anticoagulation prior to discharge 3. Encourage incentive spirometry 10 times every hour while awake. B ronchodilators per pulmonology 4. Increase activity, ambulate as tolerated. PT/OT/cardiac rehab consulted 5. Will monitor daily labs and x-rays. Electrolyte replacement per protocol. 6. Insulin management per primary care service. Patient is not diabetic preoperative hemoglobin A1c 4.9% 7. GI/DVT prophylaxis 8. Pain control with current medication regimen 9. Will discontinue epicardial pacemaker wire. Patient to remain on bedrest for 1 hour post-removal 10. Strict accurate intake and output. Daily weights using stand up scale, not bed scale 11. CIWA protocol. Continue thiamine and folic acid 12. Transfer orders placed for 3 S. cardiac stepdown unit. May transfer when bed available 13. Discharge planning in progress. Anticipate discharge to home with home care in the next 24-48 hours 14. More recommendations to follow based on patient's progress Time with Patient: Greater than 30
--- NOTE | 2020-06-06 11:06 | P.PN ---
Subjective Progress Note Date: 06/06/20 60-year-old male one of my office patient with past medical history of hypertension hyperlipidemia who was found 4 weeks ago to have severe mitral regurgitation with flail posterior leaflet of the mitral valve initially was diagnosed clinically with a loud murmur echocardiogram was performed and showed the severity of the mitral regurgitation. 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 Patient had no coronary artery disease on heart catheter. Patient was referred to cardiothoracic surgery seen Dr. Carias and ended up coming for mitral valve repair and ring annuloplasty. Post surgery he was on mechanical ventilation and shortly after was extubated successfully with no major complication. Patient had chest tube otherwise hemodynamically stable. 06/04: Patient is resting essentially in bed without any complaints. he is hemodynamically stable and afebrile. WT 10.7, hemoglobin 12.3, potassium 4.5, BUN 20, creatinine 0.76, blood glucose levels range from 130s to 160s. Urinary output is 40 ML's per hour. Actively using incentive spirometer. Remains in normal sinus rhythm. Did have some PACs yesterday. Maintaining O2 saturations in the mid 90s on 2 L/m per nasal cannula. Chest x-ray reveals some atelectatic changes at the bases more so on the left. Chest tubes remain in place with 800 ML's out since surgery. 06/05: She is on resting in a chair without any complaints of 19. He has seemed stable and afebrile. His Cordis and chest tube was removed today. Epicardial leads are in place will be removed tomorrow. Patient is set to transfer to the floor. He is ready to ambulate however due to Covid he is unable to ambulate within the ICU. Possible discharge for him on Saturday. 06/06: Patient went into atrial fibrillation with RVR currently heart rate is 130. Patient was started on IV amiodarone changed to oral. Patient had externalization of amiodarone status post hyaluronidase. Repeat chest x-ray reveals basilar atelectasis persist although there is interval improvement. Mediastinal drains been removed. Pacemaker wires are to be removed today. Patient is waiting for a bed on the cardiac stepdown unit. Review of Systems CONSTITUTIONAL: Well-developed no acute respiratory distress. No fevers. EYES: No icterus sclerae, no conjunctivitis. EARS, NOSE, MOUTH, THROAT, and FACE: No sore throat, lymphadenopathy, carotid bruits or deformity. RESPIRATORY: Mild shortness of breath exertion, 2 chest tube post extubation after surgery. CARDIOVASCULAR: No CP, Palpitation, PND, Orthopnea, or angina. Post mitral valve repair with annuloplasty GASTROINTESTINAL: No Abd pain, Nausea or vomiting, no Diarrhea or constipation, No GI Bleed, no distention or masses. GENITOURINARY: Negative for Hematuria or UTI, no kidney stones. INTEGUMENT/BREAST: Negative for any muscular injury with mild osteoarthritis.. HEMATOLOGIC/LYMPHATIC: Negative for bleed or purpura. MUSCULOSKELTAL: Negative for Myalgia or arthralgia. NEURLOGICAL: No LOC, Sz or syncope, blurred vision dizziness or abnormality.. BEHAVIORAL/PSYCH: Negative. ENDOCRINE: Negative. Physical exam: General Appearance: Alert, cooperative, no distress, appears stated age. Patient is she repairs. No acute distress. Neck HEENT: Supple, no lymphadenopathy, no thyroid enlargement, no carotid bruits. Lungs: Decreased breath sounds specially in the left side no crackles or wheezes. Chest Wall: Decrease expansion with deep inspiration , incision in the midline looks fine with no bleed, still have 2 chest tube Heart: Irregular rate and rhythm, S1, S2 normal, no murmur, rub or gallop. Back: Symmetric, no curvature, ROM normal, no CVA tenderness. Abdomen: Soft, non-tender, bowel sounds active all four quadrants, no masses, no organomegaly. Extremities: Extremities normal, atraumatic, no cyanosis or edema. Pulses: 2+ and symmetric. Skin: Skin color, texture, tugor normal, no rashes or lesions. Neurologic: Alert oriented x3 cranial nerves II through XII intact, no motor deficit, no abnormal balance or gait. Assessment/plan: 1 post mitral valve repair of the posterior leaflet with valve annuloplasty:Patient is doing well so far was extubated successfully is off mechanical ventilation and hemodynamically stable pain is under control. Transfer to cardiac stepdown unit. 2 hypertension: Was well controlled on lisinopril 10 mg a day. 3 hyperlipidemia: Was on Crestor which should be started in the next 24 hours. 4 BPH: Watch for any urinary retention. 5 severe dyspnea: Was mostly secondary to severe mitral regurgitation and flail valve should improve after surgery. 6 post surgery mechanical ventilation: With successful extubation shortly after surgery with no complications so far. 7 hyperglycemia: Discontinue insulin drip, switched to Accu-Chek with sliding scale coverage and Levemir 5 units daily at bedtime. 8. Atrial fibrillation with RVR, paroxysmal atrial fibrillation. Amiodarone oral, anticoagulation to be determined. 9. History of alcohol use daily. Continue CIWA protocol. CODE STATUS: Full code Discharge plan: Home with extra 24-48 hours. Impression and plan of care have been directed as dictated by the signing physician. Roberta Gilman nurse practitioner acting as scribe for signing ph ysician. Objective - Vital Signs Vital signs: Vital Signs Temp 99 F 06/06/20 00:00 Pulse 132 H 06/06/20 07:17 Resp 21 06/06/20 03:00 BP 102/59 06/06/20 03:00 Pulse Ox 97 06/06/20 03:00 Intake & Output 06/05/20 06/06/20 06/06/20 18:59 06:59 18:59 Intake Total 654 500 Output Total 975 535 Balance -321 -35 Weight 105.6 kg Intake: IV 174 350 Amiodarone Bolus 300 Lactated Ringers 1,000 ml 162 50 @ 20 mls/hr IV .Q24H REGINA Rx#:[id number] Pressure Bag 0.9 12 Oral 480 150 Output: Chest Tube Drainage 30 Chest Tube Mediastinal 30 Urine 945 535 Other: Voiding Method Urinal Urinal # Voids 2 ABP, PAP, CO, CI - Last Documented Arterial Blood Pressure 114/49 Pulmonary Artery Pressure 24/9 Cardiac Output 6.7 Cardiac Index 2.9 - Labs CBC & Chem 7: 06/06/20 03:15 06/06/20 03:15 Labs: Abnormal Lab Results - Last 24 Hours (Table) 06/05/20 06/05/20 06/06/20 Range/Units 17:03 20:23 03:15 RBC 2.91 L (4.30-5.90) m/uL Hgb 9.7 L (13.0-17.5) gm/dL Hct 29.2 L (39.0-53.0) % MCV 100.1 H (80.0-100.0) fL Plt Count 118 L (150-450) k/uL Sodium (137-145) mmol/L BUN (9-20) mg/dL Glucose (74-99) mg/dL POC Glucose (mg/dL) 128 H 163 H (75-99) mg/dL Magnesium (1.6-2.3) mg/dL AST (17-59) U/L ALT (4-49) U/L Total Protein (6.3-8.2) g/dL Albumin (3.5-5.0) g/dL 06/06/20 06/06/20 Range/Units 03:15 06:59 RBC (4.30-5.90) m/uL Hgb (13.0-17.5) gm/dL Hct (39.0-53.0) % MCV (80.0-100.0) fL Plt Count (150-450) k/uL Sodium 132 L (137-145) mmol/L BUN 33 H (9-20) mg/dL Glucose 124 H (74-99) mg/dL POC Glucose (mg/dL) 106 H (75-99) mg/dL Magnesium 2.4 H (1.6-2.3) mg/dL AST 73 H (17-59) U/L ALT 54 H (4-49) U/L Total Protein 5.5 L (6.3-8.2) g/dL Albumin 3.2 L (3.5-5.0) g/dL
--- NOTE | 2020-06-06 11:40 | P.PN ---
Subjective Progress Note Date: 06/06/20 Principal diagnosis: Severe mitral regurgitation, with torn chordee, status post complex mitral valve repair This is a 60-year-old gentleman who follows with Dr. Virgen as his primary care provider. He has a history of retention, hyperlipidemia, daily alcohol use. Last month he was found to have a murmur and an cardiogram revealed severe eccentric mitral regurgitation with flail posterior leaflet. Normal left ventricular systolic function with ejection fraction 50-55%. He had subsequently undergone cardiac catheterization and FAIZA and no significant coronary artery disease. FAIZA did reveal again the severe eccentric mitral regurgitation and severe prolapse of P3 segment and ruptured chordae. He presented here today for elective mitral valve replacement by Dr. Carias. He had undergone a complex mitral valve repair with bola-chords 3 repair to P2 of the posterior leaflet, closure of a P2, P3 cleft and ring annuloplasty with a 38 mm Teresa is CO2 mitral ring. He is seen in the immediate postoperative period in the intensive care unit. Intubated on mechanical ventilator and currently on assist control at a rate of 16, tidal volume 500, FiO2 100% and a PEEP of 5. Initial ABGs revealed a PaO2 of 366, pCO2 of 40 and a pH of 7.39. FiO2 was titrated down to 50%. He is sedated with propofol. Vinton-Shabnam catheter was not providing any accurate PA pressures and it was exchanged out by Dr. Fajardo. Still no good readings. It was left in the superior vena cava. Initial chest x-ray revealed it to be curled within the right atrium. Mild right lower lobe i nfiltrate. Otherwise clear. White count 11.7. Hemoglobin 12.2. Platelet count 129. Sodium 135. Potassium 4.2. Creatinine 0.80. Glucose 149. He did require insulin drip at 2.5 units per hour. Lactated Ringer's at 50 mL per hour. Received his first dose of cefazolin. The patient is seen today 06/04/2020 in follow-up on the intensive care unit. He is currently sitting up in a chair at the bedside. He is awake and alert in no distress. He is presently afebrile. Hemodynamically stable. Maintaining O2 saturations in the mid 90s on 2 L/m per nasal cannula. Chest x-ray reveals some atelectatic changes at the bases more so on the left. Chest tubes remain in place with 800 ML's out since surgery. White count 10.7. Hemoglobin 12.3. Platelets 146. Sodium 133. Potassium 4.5. Creatinine 0.76. He remains on cefazolin. Insulin drip at 1.5 units per hour. Lactated Ringer's at 50 MLS per hour. Working well with the incentive spirometer. On today's evaluation, the patient is doing well. He is stable. His chest x- ray is showing some atelectatic. The lung bases and possibly a small left. I do not appreciate any pneumothorax. The patient has [address] Output has been noted. He is postop day #2 following his mitral valve repair. He is currently on 2 Liters of oxygen with a pulse of 94%. He is having low-grade temperature of 99.9. Otherwise no temperature spikes. Likely then is sinus. Hemoglobin is 10.4. Renal function stable at creatinine of 0.8. He is using his incentive spirometer. He is pulling more than 1500 On 06/06/2020 patient seen in follow-up in the intensive care unit. Today is postoperative day #3, status post mitral valve repair, with mitral ring placement, clip ligation of the left atrial appendage. Patient is awake and alert, comfortable, sitting up in the recliner, currently on room air. Earlier his sat was 97% on 2 L, low-grade fever early this morning, and patient is in atrial flutter with a rate of 1:30, in the nursing reports that the patient had been in atrial flutter with uncontrolled rate through most of the night, he remains on amiodarone 400 mg by mouth twice daily, in addition to Lopressor 50 mg twice daily, recurrent oral medications are being managed by cardiothoracic surgery. No complaints of worsening shortness of breath, breathing comfortably, no complaints of chest pain, chest x-ray showing basilar atelectasis with some interval improvement, no evidence of pneumothorax. Patient is on aspirin, Kiesha vix, statin, and beta blockers, he is working on incentive spirometer, he is on breathing treatments. His incisional pain is fairly well controlled. Today's labs have been reviewed, showing hemoglobin of 9.7, normal white count of 9.5, sodium is 132, and there is a left lites were within normal limits, BUN of 33 and creatinine is 1.01. Objective - Vital Signs Vital signs: Vital Signs Temp 99 F 06/06/20 00:00 Pulse 72 06/06/20 10:56 Resp 21 06/06/20 03:00 BP 102/59 06/06/20 03:00 Pulse Ox 97 06/06/20 03:00 Intake & Output 06/05/20 06/06/20 06/06/20 18:59 06:59 18:59 Intake Total 654 500 Output Total 975 535 Balance -321 -35 Weight 105.6 kg Intake: IV 174 350 Amiodarone Bolus 300 Lactated Ringers 1,000 ml 162 50 @ 20 mls/hr IV .Q24H REGINA Rx#:[id number] Pressure Bag 0.9 12 Oral 480 150 Output: Chest Tube Drainage 30 Chest Tube Mediastinal 30 Urine 945 535 Other: Voiding Method Urinal Urinal Urinal # Voids 2 ABP, PAP, CO, CI - Last Documented Arterial Blood Pressure 114/49 Pulmonary Artery Pressure 24/9 Cardiac Output 6.7 Cardiac Index 2.9 - Exam GENERAL EXAM: Alert, very pleasant, 60-year-old white male, sitting up in the recliner, in no acute distress, he is on room air comfortable in no apparent distress. HEAD: Normocephalic/atraumatic. EYES: Normal reaction of pupils, equal size. Conjunctiva pink, sclera white. NOSE: Clear with pink turbinates. THROAT: No erythema or exudates. NECK: No masses, no JVD, no thyroid enlargement, no adenopathy. CHEST: No chest wall deformity. Symmetrical expansion. Midsternal incision and chest tube sites are clean dry and intact, mediastinal chest tube has been discontinued LUNGS: Equal air entry with no crackles, wheeze, rhonchi or dullness. CVS: Regular rate and rhythm, normal S1 and S2, no gallops, no murmurs, no rubs. Patient is in a flutter with a rate of 1:30 BPM ABDOMEN: Soft, nontender. No hepatosplenomegaly, normal bowel sounds, no guarding or rigidity. EXTREMITIES: No clubbing, no edema, no cyanosis, 2+ pulses and upper and lower extremities. MUSCULOSKELETAL: Muscle strength and tone normal. SPINE: No scoliosis or deformity SKIN: No rashes CENTRAL NERVOUS SYSTEM: Alert and oriented -3. No focal deficits, tone is normal in all 4 extremities. PSYCHIATRIC: Alert and oriented -3. Appropriate affect. Intact judgment and insight. - Labs CBC & Chem 7: 06/06/20 03:15 06/06/20 03:15 Labs: Abnormal Lab Results - Last 24 Hours (Table) 06/05/20 06/05/20 06/06/20 Range/Units 17:03 20:23 03:15 RBC 2.91 L (4.30-5.90) m/uL Hgb 9.7 L (13.0-17.5) gm/dL Hct 29.2 L (39.0-53.0) % MCV 100.1 H (80.0-100.0) fL Plt Count 118 L (150-450) k/uL Sodium (137-145) mmol/L BUN (9-20) mg/dL Glucose (74-99) mg/dL POC Glucose (mg/dL) 128 H 163 H (75-99) mg/dL Magnesium (1.6-2.3) mg/dL AST (17-59) U/L ALT (4-49) U/L Total Protein (6.3-8.2) g/dL Albumin (3.5-5.0) g/dL 06/06/20 06/06/20 Range/Units 03:15 06:59 RBC (4.30-5.90) m/uL Hgb (13.0-17.5) gm/dL Hct (39.0-53.0) % MCV (80.0-100.0) fL Plt Count (150-450) k/uL Sodium 132 L (137-145) mmol/L BUN 33 H (9-20) mg/dL Glucose 124 H (74-99) mg/dL POC Glucose (mg/dL) 106 H (75-99) mg/dL Magnesium 2.4 H (1.6-2.3) mg/dL AST 73 H (17-59) U/L ALT 54 H (4-49) U/L Total Protein 5.5 L (6.3-8.2) g/dL Albumin 3.2 L (3.5-5.0) g/dL Assessment and Plan Plan: Assessment: 1 Severe mitral regurgitation with torn chordae to P2 of the posterior leaflet, status post complex mitral valve repair. Postoperative day #2 output from the mediastinal tubes are minimal. He is using incentive spirometer. His hemodynam ics stable. he is in normal sinus rhythm. Postop day #3 2 Mechanical ventilatory support, postoperative, expected outcome of surgery. Extubated on postoperative day #0. On 2 L nasal cannula. 3 History of hypertension 4 Hyperlipidemia 5 History of daily alcohol use. 6 Nonsmoker 7 A-Flutter with RVR, cardiothoracic surgery is managing, patient is on combination of amiodarone, beta brannon has been increased to 50 mg twice daily, he is currently on aspirin, and Plavix Plan: NO worsening dyspnea, today's chest x-ray has been reviewed and basilar atelectasis with some interval improvement, will distal chest tube has been removed, continue encouraging deep breathing and coughing, patient remains in atrial flutter with RVR, rate control medications and anticoagulation per cardiothoracic surgery, encourage incentive spirometry use, today's labs have been reviewed. Encourage ambulation, deep breathing and coughing, we'll continue to monitor the patient in the intensive care unit. I performed a history & physical examination of the patient and discussed their management with my nurse practitioner, Brandy Thacker. I reviewed the nurse practitioner's note and agree with the documented findings and plan of care. Lung sounds are positive for fine basilar crackles. The findings and the impression was discussed with the patient. I attest to the documentation by the nurse practitioner. Time with Patient: Less than 30
[2020-06-06 12:48] LABS: Glucose,Whole Blood 163 mg/dL (75-99)
[2020-06-06 16:01] LABS: Glucose,Whole Blood 131 mg/dL (75-99)
[2020-06-06] MEDS: SENNOSIDES-DOCUSATE SODIUM 1 EACH TAB PO SCH (19:35)
[2020-06-06 20:10] LABS: Glucose,Whole Blood 122 mg/dL (75-99)
[2020-06-06] MEDS: INSULIN DETEMIR (LEVEMIR) 100 UNIT/ML SYR SQ SCH (20:12)
--- NOTE | 2020-06-06 20:53 | PN ---
PROGRESS NOTE Heraclio Shi is a 60-year-old male patient, status post mitral valve repair and clip ligation of the left atrial appendage and annuloplasty of ring. He has paroxysmal atrial fibrillation. He is sitting comfortably in bed. He remains in atrial fibrillation with a controlled ventricular response and is on amiodarone at this time. Blood pressure is stable. He denies any chest discomfort. No undue shortness of breath. Heart sounds are irregular but no murmurs, no gallop, no rub. Lung sounds are equal bilaterally. Labs were reviewed. Medications were reviewed. He is doing well. PLAN: To continue aspirin, statins, Plavix and beta brannon therapy. Continue oral amiodarone short term. His epicardial wire will be discontinued today. We anticipate discharge in the next 24 to 48 hours. MMODL / IJN: [id number] /
[2020-06-07] MEDS: HEPARIN SODIUM,PORCINE 5,000 UNIT/ML 1 ML VIAL SQ SCH ×2 (00:51→10:16)
[2020-06-07 02:01] LABS: Glucose,Whole Blood 137 mg/dL (75-99)
[2020-06-07 04:51] VITALS: TEMP 98.2
[2020-06-07 06:09] LABS: Glucose,Whole Blood 121 mg/dL (75-99)
[2020-06-07] MEDS: INSULIN ASPART (NovoLOG) 100 UNIT/ML VIAL SQ SCH ×2 (06:13→11:35)
[2020-06-07] MEDS: PANTOPRAZOLE 40 MG TABLET PO SCH (06:15)
--- NOTE | 2020-06-07 07:57 | XR ---
EXAMINATION TYPE: XR chest 2V DATE OF EXAM: 06/07/2020 COMPARISON: 06/06/2020 INDICATION: Post cardiac surgery TECHNIQUE: Frontal and lateral views of the chest are obtained. FINDINGS: The heart size is normal. Sternotomy wires are present from cardiac valve surgery. The pulmonary vasculature is normal. Intimal infiltrates at the right base. Small left pleural effusion is present. Findings are stable. IMPRESSION: 1. Mild right lower lobe infiltrate with a small left pleural effusion. Findings are stable from comp arison.
[2020-06-07] MEDS: IPRATROPIUM-ALBUTEROL 3 ML NEB INHALATION SCH ×2 (09:00→12:21)
[2020-06-07] MEDS ORDERED: guaiFENesin 600 MG TABLET.ER PO PRN (09:31)
[2020-06-07 09:35] LABS: HCT 28.5 % (39.0-53.0); HGB 9.3 gm/dL (13.0-17.5); MCH 33.2 pg (25.0-35.0); MCHC 32.7 g/dL (31.0-37.0); MCV 101.6 fL (80.0-100.0); Mean Platelet Volume 8.4; Platelet Count 171 k/uL (150-450); RBC 2.81 m/uL (4.30-5.90); RDW 12.3 % (11.5-15.5); WBC 10.4 k/uL (3.8-10.6)
--- NOTE | 2020-06-07 09:35 | P.PN ---
Subjective Progress Note Date: 06/07/20 Principal diagnosis: Severe mitral regurgitation with torn chordae to P2 of the posterior leaflet. Previous medical history of hypertension, hyperlipidemia, daily EtOH use, BPH, l ifelong nonsmoker with preoperative FEV1 83% of predicted POD #4 complex mitral valve repair with bola cords 3, repair to P2 the posterior leaflet, closure of P2, P3 cleft and ring annuloplasty with 38 mm Teresa physio-2 mitral ring, clip ligation of the left atrial appendage with 40 mm AtriClip, intraoperative transesophageal echocardiogram. Paroxysmal atrial fibrillation, unexpected but common condition after open heart surgery The patient is currently sitting up in a recliner on the cardiac stepdown unit in no acute distress. States post surgical pain is controlled on current medication regimen, denies shortness of breath. Actively using incentive spirometry. He has remained in normal sinus rhythm for 24 hours, hemodynamically stable. Has been ambulatory without difficulty. No new concerns. Feels ready to go home today. Objective - Vital Signs Vital signs: Vital Signs Temp 98.2 F 06/07/20 04:00 Pulse 88 06/07/20 09:12 Resp 18 06/07/20 04:00 BP 113/68 06/07/20 04:00 Pulse Ox 97 06/07/20 09:00 Intake & Output 06/06/20 06/07/20 06/07/20 18:59 06:59 18:59 Intake Total 150 480 120 Output Total 450 Balance -300 480 120 Weight 105.3 kg Intake: IV 150 Amiodarone Bolus 150 Oral 480 120 Output: Urine 450 Other: Voiding Method Urinal Urinal # Voids 3 ABP, PAP, CO, CI - Last Documented Arterial Blood Pressure 114/49 Pulmonary Artery Pressure 24/9 Cardiac Output 6.7 Cardiac Index 2.9 - Constitutional General appearance: Present: cooperative, no acute distress - Respiratory Details: Lungs sounds clear bilaterally. Respirations even, nonlabored. Currently on room air with oxygen saturation 97%. Able to achieve 1750 mL on his incentive spirometry. Strong productive cough. - Cardiovascular Details: S1, S2 present. Regular rate and rhythm, sinus rhythm on telemetry with heart rate in the 60s. Sternum stable. Palpable peripheral pulses bilaterally. No edema present. No calf pain or tenderness noted. Heart hugger placed patient demonstrating appropriate use. Antiembolism stockings, SCDs present. - Gastrointestinal Gastrointestinal Comment(s): Abdomen soft, nontender, nondistended. Active bowel sounds present 4 quadrants. Tolerating diet. Positive bowel movement last night per patient - Genitourinary Genitourinary Comment(s): Continues to void clear, yellow urine - Integumentary Integumentary Comment(s): Skin is warm and dry with evidence of good perfusion. Anterior chest incision well approximated and covered with dry intact dressing. Right arm former IV site pink, warm, minimal edema, no evidence of necrosis - Neurologic Neurologic: Present: CNII-XII intact - Musculoskeletal Musculoskeletal: Present: gait normal, strength equal bilaterally - Psychiatric Psychiatric: Present: A&O x's 3, appropriate affect, intact judgment & insight - Allied health notes Allied health notes reviewed: nursing - Labs CBC & Chem 7: 06/06/20 03:15 06/06/20 03:15 Labs: Abnormal Lab Results - Last 24 Hours (Table) 06/06/20 06/06/20 06/06/20 Range/Units 12:41 15:55 20:08 POC Glucose (mg/dL) 163 H 131 H 122 H (75-99) mg/dL 06/07/20 06/07/20 Range/Units 01:57 06:08 POC Glucose (mg/dL) 137 H 121 H (75-99) mg/dL - Imaging and Cardiology Chest x-ray: report reviewed, image reviewed Assessment and Plan Assessment: 1. Severe mitral regurgitation with torn chordae to P2 of the posterior leaflet, status post complex mitral valve repair with bola cords 3, repair to P2 of the posterior leaflet, closure of P2, P3 cleft and ring annuloplasty with 38 mm Teresa physio-2 mitral ring 2. History of hypertension 3. Hyperlipidemia 4. Daily EtOH use, 3 beers daily with no history of withdrawal 5. BPH 6. Lifelong nonsmoker with preoperative FEV1 83% of predicted 7. Paroxysmal atrial fibrillation/flutter Plan: 1. Continue aspirin, statin, Plavix, beta brannon therapy. 2. Continue amiodarone for A. fib prophylaxis will discharge on taper dose. No anticoagulation necessary 3. Encourage incentive spirometry 10 times every hour while awake. Bronchodilators per pulmonology 4. Increase activity, ambulate as tolerated. PT/OT/cardiac rehab consulted 5. Will monitor daily labs and x-rays. Electrolyte replacement per protocol. 6. Insulin management per primary care service. Patient is not diabetic preoperative hemoglobin A1c 4.9% 7. GI/DVT prophylaxis 8. Pain control with current medication regimen 9. Strict accurate intake and output. Daily weights using stand up scale, not bed scale 10. CIWA protocol. Continue thiamine and folic acid 11. Discharge planning in progress. Anticipate discharge to home with home care this afternoon 12. More recommendations to follow based on patient's progress Time with Patient: Greater than 30
[2020-06-07 09:43] LABS: Calcium 8.7 mg/dL (8.4-10.2); Potassium 4.3 mmol/L (3.5-5.1)
[2020-06-07] MEDS ORDERED: FUROSEMIDE 10 MG/ML 2 ML VIAL IV STA (09:48)
[2020-06-07] MEDS: ASPIRIN 325 MG TAB PO SCH (10:15)
[2020-06-07] MEDS: AMIODARONE 200 MG TAB PO SCH (10:15)
[2020-06-07] MEDS: METOPROLOL TARTRATE 50 MG TAB PO SCH (10:15)
[2020-06-07] MEDS: CLOPIDOGREL 75 MG TAB PO SCH (10:16)
[2020-06-07] MEDS: ATORVASTATIN 40 MG TAB PO SCH (10:16)
[2020-06-07] MEDS: FOLIC ACID 1 MG TAB PO SCH (10:16)
[2020-06-07] MEDS: THIAMINE 100 MG TAB PO SCH (10:16)
--- NOTE | 2020-06-07 10:47 | P.PN ---
Subjective Progress Note Date: 06/07/20 60-year-old male one of my office patient with past medical history of hypertension hyperlipidemia who was found 4 weeks ago to have severe mitral regurgitation with flail posterior leaflet of the mitral valve initially was diagnosed clinically with a loud murmur echocardiogram was performed and showed the severity of the mitral regurgitation. 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 Patient had no coronary artery disease on heart catheter. Patient was referred to cardiothoracic surgery seen Dr. Carias and ended up coming for mitral valve repair and ring annuloplasty. Post surgery he was on mechanical ventilation and shortly after was extubated successfully with no major complication. Patient had chest tube otherwise hemodynamically stable. 06/04: Patient is resting essentially in bed without any complaints. he is hemodynamically stable and afebrile. WT 10.7, hemoglobin 12.3, potassium 4.5, BUN 20, creatinine 0.76, blood glucose levels range from 130s to 160s. Urinary output is 40 ML's per hour. Actively using incentive spirometer. Remains in normal sinus rhythm. Did have some PACs yesterday. Maintaining O2 saturations in the mid 90s on 2 L/m per nasal cannula. Chest x-ray reveals some atelectatic changes at the bases more so on the left. Chest tubes remain in place with 800 ML's out since surgery. 06/05: She is on resting in a chair without any complaints of 19. He has seemed stable and afebrile. His Cordis and chest tube was removed today. Epicardial leads are in place will be removed tomorrow. Patient is set to transfer to the floor. He is ready to ambulate however due to Covid he is unable to ambulate within the ICU. Possible discharge for him on Saturday. 06/06: Patient went into atrial fibrillation with RVR currently heart rate is 130. Patient was started on IV amiodarone changed to oral. Patient had externalization of amiodarone status post hyaluronidase. Repeat chest x-ray reveals basilar atelectasis persist although there is interval improvement. Mediastinal drains been removed. Pacemaker wires are to be removed today. Patient is waiting for a bed on the cardiac stepdown unit. 06/07: Patient is in a sinus rhythm. He has been afebrile, heart rate 66, blood pressure 113/68, pulse ox 97% on room air. Blood sugars run between 100 -137. He is currently on Lopressor 50 mg twice daily. Patient denies any complaints. No chest pain, shortness of breath, palpitations, lightheadedness or dizziness. Repeat chest x-ray reveals mild right lower lobe infiltrate with small left pleural effusion, stable. Anticipate probable discharge later today. Review of Systems CONSTITUTIONAL: Well-developed no acute respiratory distress. No fevers. Denies chills. EYES: No icterus sclerae, no conjunctivitis. EARS, NOSE, MOUTH, THROAT, and FACE: No sore throat, lymphadenopathy, carotid bruits or deformity. RESPIRATORY: Mild shortness of breath exertion, 2 chest tube post extubation after surgery. CARDIOVASCULAR: No CP, Palpitation, PND, Orthopnea, or angina. Post mitral valve repair with annuloplasty GASTROINTESTINAL: No Abd pain, Nausea or vomiting, no Diarrhea or constipation, No GI Bleed, no distention or masses. GENITOURINARY: Negative for Hematuria or UTI, no kidney stones. INTEGUMENT/BREAST: Negative for any muscular injury with mild osteoarthritis.. HEMATOLOGIC/LYMPHATIC: Negative for bleed or purpura. MUSCULOSKELTAL: Negative for Myalgia or arthralgia. NEURLOGICAL: No LOC, Sz or syncope, blurred vision dizziness or abnormality.. BEHAVIORAL/PSYCH: Negative. ENDOCRINE: Negative. Physical exam: General Appearance: Alert, cooperative, no distress, appears stated age. Patient is she repairs. No acute distress. Neck HEENT: Supple, no lymphadenopathy, no thyroid enlargement, no carotid bruits. Lungs: Decreased breath sounds specially in the left side no crackles or wheezes. Chest Wall: Decrease expansion with deep inspiration , incision in the midline looks fine with no bleed, still have 2 chest tube Heart: Irregular rate and rhythm, S1, S2 normal, no murmur, rub or gallop. Back: Symmetric, no curvature, ROM normal, no CVA tenderness. Abdomen: Soft, non-tender, bowel sounds active all four quadrants, no masses, no organomegaly. Extremities: Extremities normal, atraumatic, no cyanosis or edema. Pulses: 2+ and symmetric. Skin: Skin color, texture, tugor normal, no rashes or lesions. Neurologic: Alert oriented x3 cranial nerves II through XII intact, no motor deficit, no abnormal balance or gait. Assessment/plan: 1 post mitral valve repair of the posterior leaflet with valve annuloplasty:Patient is doing well so far was extubated successfully is off mechanical ventilation and hemodynamically stable pain is under control. 2 hypertension. Continue Lopressor. 3 hyperlipidemia. Continue statin. 4 BPH: Watch for any urinary retention. 5 severe dyspnea: Was mostly secondary to severe mitral regurgitation and flail valve. 6 post surgery mechanical ventilation: With successful extubation shortly after surgery with no complications so far. 7 hyperglycemia. Continue NovoLog scale and Levemir 5 units daily at bedtime. 8. Atrial fibrillation with RVR, paroxysmal atrial fibrillation. Lopressor, Amiodarone oral, anticoagulation to be determined. 9. History of alcohol use daily. Continue CIWA protocol. CODE STATUS: Full code Discharge plan: Home. Impression and plan of care have been directed as dictated by the signing physician. Roberta Gilman nurse practitioner acting as scribe for signing physician. Objective - Vital Signs Vital signs: Vital Signs Temp 98.2 F 06/07/20 04:00 Pulse 66 06/07/20 04:00 Resp 18 06/07/20 04:00 BP 113/68 06/07/20 04:00 Pulse Ox 97 06/07/20 04:00 Intake & Output 06/06/20 06/07/20 06/07/20 18:59 06:59 18:59 Intake Total 150 480 120 Output Total 450 Balance -300 480 120 Weight 105.3 kg Intake: IV 150 Amiodarone Bolus 150 Oral 480 120 Output: Urine 450 Other: Voiding Method Urinal Urinal # Voids 3 ABP, PAP, CO, CI - Last Documented Arterial Blood Pressure 114/49 Pulmonary Artery Pressure 24/9 Cardiac Output 6.7 Cardiac Index 2.9 - Labs CBC & Chem 7: 06/07/20 08:50 06/07/20 08:50 Labs: Abnormal Lab Results - Last 24 Hours (Table) 06/06/20 06/06/20 06/06/20 Range/Units 12:41 15:55 20:08 POC Glucose (mg/dL) 163 H 131 H 122 H (75-99) mg/dL 06/07/20 06/07/20 Range/Units 01:57 06:08 POC Glucose (mg/dL) 137 H 121 H (75-99) mg/dL
[2020-06-07 11:28] LABS: Glucose,Whole Blood 120 mg/dL (75-99)
[2020-06-07] MEDS: LACTATED RINGERS 1,000 ML IV SCH ×2 (11:32→11:34)
[2020-06-07 12:19] VITALS: BP 112/66; PULSE 69; RESP 20
--- NOTE | 2020-06-07 12:29 | P.PN ---
Subjective Progress Note Date: 06/07/20 Principal diagnosis: Severe mitral regurgitation, with torn chordee, status post complex mitral valve repair This is a 60-year-old gentleman who follows with Dr. Virgen as his primary care provider. He has a history of retention, hyperlipidemia, daily alcohol use. Last month he was found to have a murmur and an cardiogram revealed severe eccentric mitral regurgitation with flail posterior leaflet. Normal left ventricular systolic function with ejection fraction 50-55%. He had subsequently undergone cardiac catheterization and FAIZA and no significant coronary artery disease. FAIZA did reveal again the severe eccentric mitral regurgitation and severe prolapse of P3 segment and ruptured chordae. He presented here today for elective mitral valve replacement by Dr. Carias. He had undergone a complex mitral valve repair with bola-chords 3 repair to P2 of the posterior leaflet, closure of a P2, P3 cleft and ring annuloplasty with a 38 mm Teresa is CO2 mitral ring. He is seen in the immediate postoperative period in the intensive care unit. Intubated on mechanical ventilator and currently on assist control at a rate of 16, tidal volume 500, FiO2 100% and a PEEP of 5. Initial ABGs revealed a PaO2 of 366, pCO2 of 40 and a pH of 7.39. FiO2 was titrated down to 50%. He is sedated with propofol. Starbuck-Shabnam catheter was not providing any accurate PA pressures and it was exchanged out by Dr. Fajardo. Still no good readings. It was left in the superior vena cava. Initial chest x-ray revealed it to be curled within the right atrium. Mild right lower lobe i nfiltrate. Otherwise clear. White count 11.7. Hemoglobin 12.2. Platelet count 129. Sodium 135. Potassium 4.2. Creatinine 0.80. Glucose 149. He did require insulin drip at 2.5 units per hour. Lactated Ringer's at 50 mL per hour. Received his first dose of cefazolin. The patient is seen today 06/04/2020 in follow-up on the intensive care unit. He is currently sitting up in a chair at the bedside. He is awake and alert in no distress. He is presently afebrile. Hemodynamically stable. Maintaining O2 saturations in the mid 90s on 2 L/m per nasal cannula. Chest x-ray reveals some atelectatic changes at the bases more so on the left. Chest tubes remain in place with 800 ML's out since surgery. White count 10.7. Hemoglobin 12.3. Platelets 146. Sodium 133. Potassium 4.5. Creatinine 0.76. He remains on cefazolin. Insulin drip at 1.5 units per hour. Lactated Ringer's at 50 MLS per hour. Working well with the incentive spirometer. On today's evaluation, the patient is doing well. He is stable. His chest x- ray is showing some atelectatic. The lung bases and possibly a small left. I do not appreciate any pneumothorax. The patient has [address] Output has been noted. He is postop day #2 following his mitral valve repair. He is currently on 2 Liters of oxygen with a pulse of 94%. He is having low-grade temperature of 99.9. Otherwise no temperature spikes. Likely then is sinus. Hemoglobin is 10.4. Renal function stable at creatinine of 0.8. He is using his incentive spirometer. He is pulling more than 1500 On 06/06/2020 patient seen in follow-up in the intensive care unit. Today is postoperative day #3, status post mitral valve repair, with mitral ring placement, clip ligation of the left atrial appendage. Patient is awake and alert, comfortable, sitting up in the recliner, currently on room air. Earlier his sat was 97% on 2 L, low-grade fever early this morning, and patient is in atrial flutter with a rate of 1:30, in the nursing reports that the patient had been in atrial flutter with uncontrolled rate through most of the night, he remains on amiodarone 400 mg by mouth twice daily, in addition to Lopressor 50 mg twice daily, recurrent oral medications are being managed by cardiothoracic surgery. No complaints of worsening shortness of breath, breathing comfortably, no complaints of chest pain, chest x-ray showing basilar atelectasis with some interval improvement, no evidence of pneumothorax. Patient is on aspirin, Kiesha vix, statin, and beta blockers, he is working on incentive spirometer, he is on breathing treatments. His incisional pain is fairly well controlled. Today's labs have been reviewed, showing hemoglobin of 9.7, normal white count of 9.5, sodium is 132, and there is a left lites were within normal limits, BUN of 33 and creatinine is 1.01. On 06/07/2020 patient seen in follow-up on selective care unit, she is calm and comfortable, his been tolerating induration, he is on room air, his pulse ox of 97%, no worsening dyspnea, took a shower today. Had no acute events overnight, his vital signs have been stable, sternal incision looks clean dry and intact, chest tube sites covered with dressings, has been discontinued for greater than 24 hours, he has remained in sinus mechanism. 24 hours, his heart rate is much better controlled, he is working on his incentive spirometer, and he is anticipa danny to be discharged home today. Today's chest x-ray shows mild right lower lobe infiltrate with a small left pleural effusion, findings are stable from previouschest x-ray Objective - Vital Signs Vital signs: Vital Signs Temp 98.2 F 06/07/20 08:00 Pulse 88 06/07/20 09:12 Resp 20 06/07/20 08:00 BP 112/66 06/07/20 08:00 Pulse Ox 97 06/07/20 09:00 Intake & Output 06/06/20 06/07/20 06/07/20 18:59 06:59 18:59 Intake Total 150 480 120 Output Total 450 Balance -300 480 120 Weight 105.3 kg Intake: IV 150 Amiodarone Bolus 150 Oral 480 120 Output: Urine 450 Other: Voiding Method Urinal Urinal # Voids 3 ABP, PAP, CO, CI - Last Documented Arterial Blood Pressure 114/49 Pulmonary Artery Pressure 24/9 Cardiac Output 6.7 Cardiac Index 2.9 - Exam GENERAL EXAM: Alert, very pleasant, 60-year-old white male, room air, with a pulse ox 97% in no acute distress, he is on room air comfortable in no apparent distress. HEAD: Normocephalic/atraumatic. EYES: Normal reaction of pupils, equal size. Conjunctiva pink, sclera white. NOSE: Clear with pink turbinates. THROAT: No erythema or exudates. NECK: No masses, no JVD, no thyroid enlargement, no adenopathy. CHEST: No chest wall deformity. Symmetrical expansion. Midsternal incision and chest tube sites are clean dry and intact, mediastinal chest tube has been discontinued LUNGS: Equal air entry with no crackles, wheeze, rhonchi or dullness. CVS: Regular rate and rhythm, normal S1 and S2, no gallops, no murmurs, no rubs. Patient is in a flutter with a rate of 1:30 BPM ABDOMEN: Soft, nontender. No hepatosplenomegaly, normal bowel sounds, no guarding or rigidity. EXTREMITIES: No clubbing, no edema, no cyanosis, 2+ pulses and upper and lower extremities. MUSCULOSKELETAL: Muscle strength and tone normal. SPINE: No scoliosis or deformity SKIN: No rashes CENTRAL NERVOUS SYSTEM: Alert and oriented -3. No focal deficits, tone is normal in all 4 extremities. PSYCHIATRIC: Alert and oriented -3. Appropriate affect. Intact judgment and insight. - Labs CBC & Chem 7: 06/07/20 08:50 06/07/20 08:50 Labs: Abnormal Lab Results - Last 24 Hours (Table) 06/06/20 06/06/20 06/06/20 Range/Units 12:41 15:55 20:08 RBC (4.30-5.90) m/uL Hgb (13.0-17.5) gm/dL Hct (39.0-53.0) % MCV (80.0-100.0) fL Sodium (137-145) mmol/L BUN (9-20) mg/dL Glucose (74-99) mg/dL POC Glucose (mg/dL) 163 H 131 H 122 H (75-99) mg/dL 06/07/20 06/07/20 06/07/20 Range/Units 01:57 06:08 08:50 RBC 2.81 L (4.30-5.90) m/uL Hgb 9.3 L (13.0-17.5) gm/dL Hct 28.5 L (39.0-53.0) % MCV 101.6 H (80.0-100.0) fL Sodium (137-145) mmol/L BUN (9-20) mg/dL Glucose (74-99) mg/dL POC Glucose (mg/dL) 137 H 121 H (75-99) mg/dL 06/07/20 06/07/20 Range/Units 08:50 11:27 RBC (4.30-5.90) m/uL Hgb (13.0-17.5) gm/dL Hct (39.0-53.0) % MCV (80.0-100.0) fL Sodium 133 L (137-145) mmol/L BUN 31 H (9-20) mg/dL Glucose 124 H (74-99) mg/dL POC Glucose (mg/dL) 120 H (75-99) mg/dL Assessment and Plan Plan: Assessment: 1 Severe mitral regurgitation with torn chordae to P2 of the posterior leaflet, status post complex mitral valve repair. Postoperative day #2 output from the mediastinal tubes are minimal. He is using incentive spirometer. His hemodynamics stable. he is in normal sinus rhythm. Postop day #4 2 Mechanical ventilatory support, postoperative, expected outcome of surgery. Extubated on postoperative day #0. On 2 L nasal cannula. 3 History of hypertension 4 Hyperlipidemia 5 History of daily alcohol use. 6 Nonsmoker 7 A-Flutter with RVR, cardiothoracic surgery is managing, patient is on combination of amiodarone, beta brannon has been increased to 50 mg twice daily, he is currently on aspirin, and Plavix. Converted to sinus rhythm Plan: Patient has remained clinically stable and last 24 hours, no worsening dyspnea, he is on room air, he is tolerating ambulates, he took a shower, lung sounds are clear, chest x-ray shows minor right lower lobe infiltrate with small left pleural effusion. No worsening dyspnea, patient is in sinus mechanism with a controlled rate, he is anticipated to be discharged home today, continue encouraging deep breathing and coughing, outpatient follow-up with Dr. Fajardo in the office in 7-10 days I performed a history & physical examination of the patient and discussed their management with my nurse practitioner, Brandy Thacker. I reviewed the nurse practitioner's note and agree with the documented findings and plan of care. Lung sounds are positive for fine basilar crackles. The findings and the impression was discussed with the patient. I attest to the documentation by the nurse practitioner. Time with Patient: Less than 30
--- NOTE | 2020-06-07 13:07 | P.DS ---
Providers Date of admission: 06/03/20 05:31 Expected date of discharge: 06/07/20 Attending physician: Mike Carias Consults: 06/03/20 13:59 Consult Physician Routine Consulting Provider: Viv Fajardo Consult Reason/Comments: Screw Machine Operator Consult: post cardiac surgery Do you want consulting provider notified?: Yes Consult Physician Routine Consulting Provider: Francisco Virgen Consult Reason/Comments: med mgmt Do you want consulting provider notified?: Yes Consult Physician Routine Consulting Provider: Angélica Craven Consult Reason/Comments: Riprap Worker Consult: post cardiac surgery Do you want consulting provider notified?: Yes Primary care physician: [facility] Course: FINAL DIAGNOSIS: 1. Severe mitral regurgitation with torn chordae to P2 of the posterior leaflet 2. Hypertension 3. Hyperlipidemia 4. Daily EtOH use 5. BPH 6. Lifelong nonsmoker with preoperative FEV1 83% of predicted 7. Paroxysmal atrial fibrillation PRINCIPAL PROCEDURE: 1. Complex mitral valve repair with bola-cords 3, repair to P2 posterior leaflet, closure of P2, P3 cleft and ring annuloplasty with 38 mm Teresa physio-2 mitral ring 2. Clip ligation of the left atrial appendage with 40 mm AtriClip 3. Intraoperative transesophageal echocardiogram HISTORY OF PRESENT ILLNESS: This is a 59-year-old very active gentleman who follows on an outpatient basis with Dr. Virgen for primary care. Apparently he was at his dentist to have his cleaning completed, he was noted to be hypertensive and was sent to his primary care office. At his primary care office he was noted to have a murmur and a transthoracic echocardiogram was completed demonstrating severe eccentric mitral regurgitation with flail posterior leaflet, normal left ventricular size with EF 50-55%, and no wall motion abnormalities. Due to these findings he was sent to Dr. Camejo from cardiology associates. He was recommended to undergo heart catheterization and transesophageal echocardiogram. Heart catheterization revealed no obstructive coronary artery disease. Transesophageal echocardiogram confirmed normal left ventricular size with ejection fraction 50-55%, dilated left atrium, severe eccentric mitral regurgitation with severe prolapse of the P3 segment with ruptured chordae, and mild tricuspid regurgitation. He denied any symptoms of heart failure, denied shortness of breath, chest pain, dizziness, syncopal episodes, or any other symptomatology. Consultation was placed to Dr. Carias from cardiothoracic surgery. He was recommended to undergo mitral valve repair, possible replacement. The usual perioperative course was discussed in detail with the patient and his family, all risks and benefits were explained, all questions were answered, and consent was obtained to proceed with surgery. The patient was discharged to home on maximal medical therapy to return as an outpatient for surgery after obtaining dental clearance. HOSPITAL COURSE: The patient was brought to the hospital on 06/03/2020, taken to the preoperative area, prepared in the usual fashion, and subsequently taken to the operating room where Dr. Carias performed a complex mitral valve repair. Upon completion of surgery the patient was transferred to the cardiovascular intensive care unit where he was recovered and monitored hemodynamically. He was extubated, all lines, tubes, and drips were discontinued when appropriate, and he was transferred to 3 S cardiac stepdown unit for further monitoring and rehabilitation. He did experience paroxysmal atrial fibrillation which was co ntrolled with amiodarone and increased Lopressor. His oxygen was titrated down, he continued to work with physical and occupational therapy, he was tolerating oral diet, his pain was controlled, and he was ready to be discharged to home with [facility] on postoperative day #4. He received written and verbal instruction regarding his medications, activity restrictions, signs and symptoms requiring physician notification, and follow-up appointments. COMPLICATIONS: The patient experienced postoperative paroxysmal atrial fibrillation with change in medication resulting in normal sinus rhythm. Patient Condition at Discharge: Stable Plan - Discharge Summary Discharge Rx Participant: No New Discharge Prescriptions: New Aspirin 81 mg PO DAILY #30 tab Amiodarone [Cordarone] 400 mg PO BID #32 tab Folic Acid 1 mg PO DAILY tab Furosemide [Lasix] 20 mg PO DAILY #3 tab Metoprolol Tartrate [Lopressor] 50 mg PO BID #60 tab Clopidogrel [Plavix] 75 mg PO DAILY #30 tab Pantoprazole [Protonix] 40 mg PO AC-BRKFST #30 tablet. Sennosides-Docusate Sodium [Senokot-S] 2 each PO HS PRN tab PRN Reason: Constipation Thiamine [Vitamin B-1] 100 mg PO DAILY tab guaiFENesin [Mucinex] 600 mg PO Q12HR PRN #120 tablet.er PRN Reason: Cough Acetaminophen Tab [Tylenol Tab] 1,000 mg PO Q6HR PRN #120 tablet PRN Reason: Pain Continue Rosuvastatin Calcium [Crestor] 5 mg PO DAILY Discontinued lisinopriL [Zestril] 10 mg PO DAILY Mupirocin [Mupirocin 2%] 1 applic NASAL BID #1 tube Discharge Medication List Rosuvastatin Calcium [Crestor] 5 mg PO DAILY 05/27/20 [History] Acetaminophen Tab [Tylenol Tab] 1,000 mg PO Q6HR PRN #120 tablet 06/07/20 [Rx] Amiodarone [Cordarone] 400 mg PO BID #32 tab 06/07/20 [Rx] Aspirin 81 mg PO DAILY #30 tab 06/07/20 [Rx] Clopidogrel [Plavix] 75 mg PO DAILY #30 tab 06/07/20 [Rx] Folic Acid 1 mg PO DAILY tab 06/07/20 [Rx] Furosemide [Lasix] 20 mg PO DAILY #3 tab 06/07/20 [Rx] Metoprolol Tartrate [Lopressor] 50 mg PO BID #60 tab 06/07/20 [Rx] Pantoprazole [Protonix] 40 mg PO AC-BRKFST #30 tablet.dr 06/07/20 [Rx] Sennosides-Docusate Sodium [Senokot-S] 2 each PO HS PRN tab 06/07/20 [Rx] Thiamine [Vitamin B-1] 100 mg PO DAILY tab 06/07/20 [Rx] guaiFENesin [Mucinex] 600 mg PO Q12HR PRN #120 tablet.er 06/07/20 [Rx] Follow up Appointment(s)/Referral(s): Toby Camejo MD [STAFF PHYSICIAN] - 06/14/20 2:00 pm [facility] [NON-STAFF] - 4 Weeks (You will be called for cardiac rehab evaluation approximately 4-6 weeks after surgery) Francisco Virgen MD [Primary Care Provider] - 06/20/20 10:00 am (with MARTHA Maloney) Zen Maharaj NPC [Nurse Practitioner] - 06/13/20 11:00 am (Don will see you in the surgeons office behind the hospital at [facility], [address] [place] [address], [address]) [facility], [NON-STAFF] - 1-2 Days (RN, PT/OT and Telehealth ) Mike Carias MD [STAFF PHYSICIAN] - 07/01/20 2:00 pm Viv Fajardo MD [STAFF PHYSICIAN] - 06/29/20 9:30 am Ambulatory/Diagnostic Orders: Complete Blood Count w/diff [LAB.AMB] Time Frame: 3 Days, Location: None Selected Comprehensive Metabolic Panel [LAB.AMB] Time Frame: 3 Days, Location: None Selected Activity/Diet/Wound Care/Special Instructions: DISCHARGE INSTRUCTIONS: 1. No driving for 4 weeks, or until physician gives their ok. 2. The patient should sleep in their own bed, no medical bed needed. 3. Stairs are not an issue. If the bedroom is upstairs, it is advised that the patient go up at night and down in the morning for the first week. Go slowly, using handrail and take 1 step at a time. 4. HPOENIX hose are to be worn for 30 days or until physician discontinues. 5. Heart hugger is to be worn 100% of the time until physician discontinues.(except when showering) 6. No lifting, pushing, or pulling more than 10 pounds for 12 weeks. The physician will advise of any restriction changes. 7. The patient is expected to continue the prescribed walking program. 8. Continue pain control per as needed orders. 9. Continue with incentive spirometry and splinting/heart hugger until otherwise directed by the physician. 10. Must shower daily using liquid antibacterial soap and a separate white washcloth for each individual incision. 11. Routine sternal incision care. No powders, lotions, ointments on incisions. No dressings are necessary on incisions unless they are draining. Dermabond tape is to remain on sternal incision until surgeon follow-up. 12. Please call surgeon/ROOFING MACHINE OPERATOR for temp greater than 101 F or purulent drainage from incisions. 13. All prescriptions given by surgeon for 30 days. Refills need to be filled through cut off saw grader/primary care physician. 14. A Red armband has been placed on the patient. It should be worn for 30 days post surgery and will be removed by the cardiac surgeons. If an ER visit is necessary, please make sure the number on the Red armband is called. 15. You have been referred to and are expected to begin Cardiac Rehab in approximately 4-6 weeks. HOME HEALTH SERVICES TO PROVIDE: RN SKILLED HOME CARE SERVICES FOR POST-OP SURGICAL PATIENTS WITH THE FOLLOWING: Coronary Artery Bypass Surgery (CABG), Mitral Valve Replacement/Repair ( MVR), Aortic Valve Replacement/Repair (AVR) RN TO CONTINUE EDUCATION FROM ``ROAD TO A HEALTH HEART PATIENT EDUCATION MANUAL (GIVEN TO PATIENT IN THE HOSPITAL) MEDICATION RECONCILIATION WITH EDUCATION NEEDED ON FIRST HOME VISIT EMPHASIZE IMPORTANCE OF WEARING BREAST SUPPORT/HEART HUGGER ENCOURAGE USE OF INCENTIVE SPIROMETER 10 X EVERY HOUR WHILE AWAKE ENCOURAGE UTILIZATION OF LOWER EXTREMITY COMPRESSION STOCKINGS/PHOENIX HOSE and ELEVATE LEGS ABOVE LEVEL OF HEART WHILE AT REST. ENCOURAGE AMBULATION 3-5x/day INCREASING TOLERATES, WHILE AVOIDING EXTREMES IN TEMPERATURE FREQUENCY: RN TO OPEN THE PATIENT WITHIN 24 HOURS OF DISCHARGE FROM THE HOSPITAL WITH TELEHEALTH INSTALLED AT [facility] [place], RN TO VISIT 2-3 X A WEEK FOR 4 WEEKS ESTABLISHED BY PATIENT NEEDS. LABORATORY: CBC, CMP TO BE DRAWN ON THE THIRD DAY HOME, (RAN STAT) FAX RESULTS TO [phone]. TELEHEALTH PARAMETERS: WEIGHT: NOTIFY MD OF WEIGHT GAIN OF 2 LBS IN 24 HOURS OR 5 LBS IN ONE WEEK HR: NOTIFY MD OF HR <55 BPM OR HR>100 BPM BP: NOTIFY MD IF BP <90/55 OR BP>140/100 O2 SAT: NOTIFY MD IF PO2<93% ON ROOM AIR SEND TELEHEALTH REPORT TO PROJECT MANAGER/TEAM COACH AND CARDIOVASCULAR SURGEON THE FIRST WEEK OF CARE AND THEN BI-WEEKLY. PLEASE ADDITIONALLY COMMUNICATE ANY ABNORMALS AND NEW FINDINGS TO THE SURGEONS OFFICE. For any questions or concerns please call direct mail manager Olive @ or Josesito @ Discharge Disposition: HOME WITH HOME HEALTH SERVICES
--- NOTE | 2020-06-09 05:50 | CDI ---
Documentation Clarification Form Date: 06/09/2020 05:49:00 AM From: Kasie Mak Phone: Admit Date: 06/03/2020 05:31:00 AM Patient Name: Heraclio Shi Visit Number: [id number] Discharge Date: 06/07/2020 01:25:00 PM ATTENTION: The Clinical Documentation Specialists (CDI) and [facility] Coding Staff appreciate your assistance in clarifying documentation. Please respond to the clarification below the line at the bottom and electronically sign. The CDI & [facility] Coding staff will review the response and follow-up if needed. Please note: Queries are made part of the Legal Health Record. If you have any questions, please contact the author of this message via ITS. Dr. Mike Carias, Atrial Flutter is documented in the PNs by Marsha on 06/06, 06/07. History/Risk factors: mitral regurgitation with torn chordae to P2 of the posterior leaflet s/p repair, CAD, HTN, HLD,BPH Clinical Indicators: PN 06/06-Earlier his sat was 97% on 2L, low-grade fever early this morning, and patient is in atrial flutter with a rate of 1:30, in the nursing reports that the patient had been in atrial flutter with uncontrolled rate through most of the night, he remains on amiodarone 400 mg by mouth twice daily, in addition to Lopressor 50 mg twice daily, recurrent oral medications are being managed by cardiothoracic surgery. In your professional opinion, in order to capture the severity of condition; can you please clarify the type of Atrial Flutter if known? Typical/Type I Atypical/Type II Other, please specify Unable to determine unable to determine MTDD
== END 2020-06-07 13:25 | disposition home health service (06) | DRG 219 ==
LOC: 2ORMAIN 05:31 → 2SICU 13:36 → 3SCARD 06-06 12:19
PROVIDERS: ADMIT Thoracic Surgery (Cardiothoracic Vascular Surgery); ATTEND Thoracic Surgery (Cardiothoracic Vascular Surgery)
PROC: 02L70CK Occlusion of Left Atrial Appendage with Extraluminal Device, Open Approach (ICD-10-PCS; principal; 2020-06-03 08:00)
PROC: 5A1221Z Performance of Cardiac Output, Continuous (ICD-10-PCS; principal; 2020-06-03 08:00)
PROC: B246ZZ4 Ultrasonography of Right and Left Heart, Transesophageal (ICD-10-PCS; principal; 2020-06-03 08:00)
PROC: 02UG0JZ Supplement Mitral Valve with Synthetic Substitute, Open Approach (ICD-10-PCS; principal; 2020-06-03 08:00)
DX: I34.0 Nonrheumatic mitral (valve) insufficiency (principal); I51.1 Rupture of chordae tendineae, not elsewhere classified; I31.9 Disease of pericardium, unspecified; I48.92 Unspecified atrial flutter; J98.11 Atelectasis; I47.1 Supraventricular tachycardia; I97.190 Other postprocedural cardiac functional disturbances following cardiac surgery; I48.0 Paroxysmal atrial fibrillation; I25.10 Atherosclerotic heart disease of native coronary artery without angina pectoris; I10 Essential (primary) hypertension; E78.5 Hyperlipidemia, unspecified; N40.0 Benign prostatic hyperplasia without lower urinary tract symptoms; R73.9 Hyperglycemia, unspecified; Z79.899 Other long term (current) drug therapy; Z90.89 Acquired absence of other organs; Z98.890 Other specified postprocedural states; Z72.89 Other problems related to lifestyle; Z80.9 Family history of malignant neoplasm, unspecified; Z82.49 Family history of ischemic heart disease and other diseases of the circulatory system; Y83.2 Surgical operation with anastomosis, bypass or graft as the cause of abnormal reaction of the patient, or of later complication, without mention of misadventure at the time of the procedure
CPT/HCPCS: 71045; 71046; 80048; 80053; 82330; 82805; 83735; 85025; 85027; 85520; 85610; 85730; 86850; 86891; 86900; 86901; 86920; 88305; 94002; 94640; 94760

== ENCOUNTER → 2020-12-01 | Outpatient (CLI) | payer OTHER ==
[2020-12-01 18:32] LABS: Chol/HDL Ratio 3.36; LDL Cholesterol,Calculated 110.6 mg/dL (0.0-131.0); VLDL Calculation 21.4 mg/dL (5.00-40.00)
== END | disposition home or self-care (01) ==
LOC: LABWHC1 08:35
PROVIDERS: ATTEND Nurse Practitioner Adult Health
DX: E78.2 Mixed hyperlipidemia (principal)
CPT/HCPCS: 36415; 80061; 84450; 84460

== ENCOUNTER → 2021-06-13 | Outpatient (CLI) | payer OTHER ==
[2021-06-13 12:01] LABS: ALT 41 U/L (10-49); AST 26 U/L (14-35); Chol/HDL Ratio 2.87 Ratio; VLDL Calculation 15.52 mg/dL (5.00-40.00)
== END | disposition home or self-care (01) ==
LOC: LABWHC1 07:09
PROVIDERS: ATTEND Nurse Practitioner Adult Health
DX: E78.2 Mixed hyperlipidemia (principal)
CPT/HCPCS: 36415; 80061; 84450; 84460

== ENCOUNTER → 2021-07-14 | Outpatient (CLI) | payer OTHER ==
--- NOTE | 2021-07-14 13:25 | US ---
EXAMINATION TYPE: US carotid duplex BILAT DATE OF EXAM: 07/14/2021 COMPARISON: US carotid May 03 2020 CLINICAL HISTORY: I65.23 stenosis carotid arteries. Left eye vision loss EXAM MEASUREMENTS: RIGHT: Peak Systolic Velocity (PSV) cm/sec ----- Right CCA: 68.9 ----- Right ICA: 71.1 ----- Right ECA: 69.2 ICA/CCA ratio: 1.0 RIGHT: End Diastole cm/sec ----- Right CCA: 16.2 ----- Right ICA: 21.7 ----- Right ECA: 0.0 LEFT: Peak Systolic Velocity (PSV) cm/sec ----- Left CCA: 64.7 ----- Left ICA: 56.1 ----- Left ECA: 87.4 ICA/CCA ratio: 0.9 LEFT: End Diastole cm/sec ----- Left CCA: 15.5 ----- Left ICA: 18.2 ----- Left ECA: 11.6 VERTEBRALS (direction of flow): Right Vertebral: Antegrade Left Vertebral: Antegrade Rhythm: Normal No significant stenosis . Mild peripheral shadowing plaque at bilateral carotid bulb level redemonstr ated. IMPRESSION: No hemodynamically significant stenosis in either internal carotid artery. No signific ant change from 2019 study. Criteria for Assigning % of Stenosis / Diameter reduction (Estimation based on the indirect measurements of the internal carotid artery velocities (ICA PSV). 1. Normal (no stenosis)=ICA PSV < 125 cm/s: ratio < 2.0: ICA EDV<40 cm/s. 2. Less than 50% stenosis=ICA PSV < 125 cm/s: ratio < 2.0: ICA EDV<40 cm/s. 3. 50 to 69% stenosis=ICA PSV of 125 to 230 cm/s: ration 2.0 ? 4.0: ICA EDV 40-100 cm/s. 4. Greater than 70% stenosis to near occlusion= ICA PSV > 230 cm/s: ratio > 4.0: ICA EDV > 100 cm/s. 5. Near occlusion= ICA PSV velocities may be low or undetectable: variable ratio and ICA EDV. 6. Total occlusion=unable to detect flow.
== END | disposition home or self-care (01) ==
LOC: RADUSWWP 12:41
PROVIDERS: ATTEND Internal Medicine Geriatric Medicine
DX: H54.62 Unqualified visual loss, left eye, normal vision right eye (principal)
CPT/HCPCS: 93880

== ENCOUNTER → 2021-07-31 | Outpatient (CLI) | payer OTHER ==
--- NOTE | 2021-07-31 14:31 | MR ---
EXAMINATION TYPE: MR brain wo/w con DATE OF EXAM: 07/31/2021 1:40 PM COMPARISON: NONE HISTORY: NO prior, left eye blurriness CONTRAST: Patient received 10ml mL intravenous Gadavist gadolinium contrast. Multiplanar and multispin-echo imaging of the brain was performed . Pre and post contrast enhanced i mages are obtained. The ventricles, basal cisterns and sulci overlying the cerebral convexities are mildly enlarged. There is evidence of mild periventricular white matter ischemic demyelination. Remote deep white matter insults are also noted. No acute edema is seen on diffusion weighted imaging. There is no evidence for midline shift or mass effect. Acute intracranial hemorrhage or extra-axial collection is not evident. No enhancing lesions are seen. The paranasal sinuses and mastoid air cells are well-aerated. IMPRESSION: Age-related atrophic and chronic small vessel ischemic change. No acute intracranial process at this time. No enhancing lesions are seen.
== END | disposition home or self-care (01) ==
LOC: RADMRIMAIN 12:44
PROVIDERS: ATTEND Internal Medicine Geriatric Medicine
DX: I67.82 Cerebral ischemia (principal); G31.9 Degenerative disease of nervous system, unspecified
CPT/HCPCS: 70553

== ENCOUNTER → 2021-12-11 | Outpatient (CLI) | payer OTHER ==
[2021-12-11 10:48] LABS: ALT 48 U/L (10-49); AST 30 U/L (14-35); African American GFR (CKD) 93.7 (60.0-200.0); Albumin 4.7 g/dL (3.8-4.9); Albumin/Globulin Ratio 1.74 (1.60-3.17); Alkaline Phosphatase 71 U/L (41-126); Blood Urea Nitrogen 20.9 mg/dL (9.0-27.0); Calcium 9.6 mg/dL (8.7-10.3); Carbon Dioxide 22.9 mmol/L (20.0-27.5); Chloride 106 mmol/L (96-109); Chol/HDL Ratio 3.32 Ratio; Globulin 2.7 g/dL (1.6-3.3); Glucose 91 mg/dL (70-110); LDL Cholesterol,Calculated 103.1 mg/dL (0.0-131.0); Non-African American GFR(CKD) 80.9 (60.0-200.0); Potassium 4.3 mmol/L (3.5-5.5); Sodium 142 mmol/L (135-145); Total Protein 7.4 g/dL (6.2-8.2)
== END | disposition home or self-care (01) ==
LOC: LABWHC1 08:09
PROVIDERS: ATTEND Nurse Practitioner Adult Health
DX: E78.2 Mixed hyperlipidemia (principal)
CPT/HCPCS: 36415; 80053; 80061

== ENCOUNTER → 2022-02-20 | Outpatient (CLI) | payer OTHER ==
[2022-02-20 11:02] LABS: Basophils # (A) 0.04 X 10*3/uL (0.00-0.10); Basophils % (A) 0.5 %; Eosinophils # (A) 0.07 X 10*3/uL (0.04-0.35); Eosinophils % (A) 0.8 %; HCT 45.2 % (39.6-50.0); HGB 15.1 g/dL (13.0-17.0); Immature Grans, Automated 0.6 %; Lymphocytes # (A) 1.38 X 10*3/uL (0.90-5.00); Lymphocytes % (A) 16.3 %; MCH 32.5 pg (27.0-32.0); MCHC 33.4 g/dL (32.0-37.0); MCV 97.2 fL (80.0-97.0); Mean Platelet Volume 10.6 fL (9.5-12.2); Monocytes # (A) 0.76 X 10*3/uL (0.20-1.00); NRBC Per 100 WBC 0 /100 WBCS (0.0-0.0); Neutrophils # (A) 6.16 X 10*3/uL (1.80-7.70); Neutrophils % (A) 72.8 %; Platelet Count 173 X 10*3/uL (140-440); RBC 4.65 X 10*6/uL (4.40-5.60); RDW 11.7 % (11.5-14.5); WBC 8.46 X 10*3/uL (4.50-10.00)
[2022-02-20 11:08] LABS: ALT 40 U/L (10-49); AST 32 U/L (14-35); African American GFR (CKD) 93.7 (60.0-200.0); Albumin 4.6 g/dL (3.8-4.9); Alkaline Phosphatase 74 U/L (41-126); Blood Urea Nitrogen 17.3 mg/dL (9.0-27.0); Calcium 9.6 mg/dL (8.7-10.3); Carbon Dioxide 22.6 mmol/L (20.0-27.5); Chloride 107 mmol/L (96-109); Chol/HDL Ratio 3.18 Ratio; Globulin 2.7 g/dL (1.6-3.3); Glucose 94 mg/dL (70-110); LDL Cholesterol,Calculated 106.3 mg/dL (0.0-131.0); Non-African American GFR(CKD) 80.9 (60.0-200.0); Potassium 4.3 mmol/L (3.5-5.5); Sodium 141 mmol/L (135-145); Total Protein 7.3 g/dL (6.2-8.2); VLDL Calculation 19.82 mg/dL (5.00-40.00)
== END | disposition home or self-care (01) ==
LOC: LABWHC1 07:31
PROVIDERS: ATTEND Internal Medicine Geriatric Medicine
DX: N40.0 Benign prostatic hyperplasia without lower urinary tract symptoms (principal); R79.9 Abnormal finding of blood chemistry, unspecified; Z95.4 Presence of other heart-valve replacement
CPT/HCPCS: 36415; 80053; 80061; 83036; 84153; 84443; 85025

== ENCOUNTER → 2022-05-30 | Outpatient (CLI) | payer OTHER ==
[2022-05-30 15:47] LABS: Chol/HDL Ratio 3.14 Ratio; LDL Cholesterol,Calculated 103.3 mg/dL (0.0-131.0); VLDL Calculation 19.98 mg/dL (5.00-40.00)
[2022-05-30 15:48] LABS: ALT 46 U/L (10-49); AST 28 U/L (14-35)
== END | disposition home or self-care (01) ==
LOC: LABWHC1 07:24
PROVIDERS: ATTEND Internal Medicine Interventional Cardiology
DX: E78.2 Mixed hyperlipidemia (principal)
CPT/HCPCS: 36415; 80061; 84450; 84460

== ENCOUNTER → 2023-01-25 | Outpatient (CLI) | payer OTHER ==
[2023-01-25 11:30] LABS: Basophils # (A) 0.02 X 10*3/uL (0.00-0.10); Basophils % (A) 0.3 %; Eosinophils # (A) 0.05 X 10*3/uL (0.04-0.35); Eosinophils % (A) 0.7 %; HCT 49.4 % (39.6-50.0); HGB 16.5 d/dL (13.0-17.0); MCH 33.1 pg (27.0-32.0); MCHC 33.4 d/dL (32.0-37.0); MCV 99.2 FL (80.0-97.0); Mean Platelet Volume 10.6 FL (9.5-12.2); Monocytes # (A) 0.69 X 10*3/uL (0.20-1.00); Monocytes % (A) 9.2 %; NRBC Per 100 WBC 0 X 10*3/uL (0.00-0.01); Neutrophils # (A) 5.51 X 10*3/uL (1.80-7.70); Neutrophils % (A) 73.1 %; Platelet Count 178 X 10*3/uL (140-440); RBC 4.98 X 10*6/uL (4.40-5.60); WBC 7.52 X 10*3/uL (4.50-10.00)
[2023-01-25 11:31] LABS: ALT 52 U/L (10-49); AST 31 U/L (14-35); Albumin 4.8 d/dL (3.8-4.9); Albumin/Globulin Ratio 1.92 Ratio (1.60-3.17); Alkaline Phosphatase 74 U/L (41-126); BUN/Creat Ratio 17.73 Ratio (12.00-20.00); Blood Urea Nitrogen 19.5 mg/dL (9.0-27.0); Calcium 9.8 mg/dL (8.7-10.3); Carbon Dioxide 27.2 mmol/L (21.6-31.8); Chloride 107 mmol/L (96-109); Creatine Kinase 70 U/L (35-257); Globulin 2.5 d/dL (1.6-3.3); Glucose 99 mg/dL (70-110); Potassium 5.2 mmol/L (3.5-5.5); Sodium 144 mmol/L (135-145); Total Bilirubin 0.8 mg/dL (0.3-1.2); Total Protein 7.3 d/dL (6.2-8.2)
== END | disposition home or self-care (01) ==
LOC: LABWHC1 07:05
PROVIDERS: ATTEND Internal Medicine Geriatric Medicine
DX: Z00.00 Encounter for general adult medical examination without abnormal findings (principal); E78.2 Mixed hyperlipidemia; N40.0 Benign prostatic hyperplasia without lower urinary tract symptoms; Z95.4 Presence of other heart-valve replacement; R79.9 Abnormal finding of blood chemistry, unspecified
CPT/HCPCS: 36415; 80053; 80061; 82550; 83036; 84153; 84443; 85025

== ENCOUNTER → 2023-02-05 | Outpatient (CLI) | payer OTHER ==
[2023-02-05 12:24] LABS: Chol/HDL Ratio 3.01 Ratio; LDL Cholesterol,Calculated 96.9 mg/dL (0.0-131.0)
== END | disposition home or self-care (01) ==
LOC: LABWHC1 07:02
PROVIDERS: ATTEND Internal Medicine Interventional Cardiology
DX: Z00.00 Encounter for general adult medical examination without abnormal findings (principal); E78.2 Mixed hyperlipidemia; N40.0 Benign prostatic hyperplasia without lower urinary tract symptoms; Z95.4 Presence of other heart-valve replacement; R79.9 Abnormal finding of blood chemistry, unspecified
CPT/HCPCS: 36415; 80061

== ENCOUNTER → 2023-09-03 | Outpatient (CLI) | payer OTHER ==
[2023-09-03 11:25] LABS: ALT 41 U/L (10-49); AST 29 U/L (14-35); Albumin 4.6 g/dL (3.8-4.9); Albumin/Globulin Ratio 1.84 Ratio (1.60-3.17); Alkaline Phosphatase 69 U/L (41-126); Blood Urea Nitrogen 20.5 mg/dL (9.0-27.0); Calcium 9.9 mg/dL (8.7-10.3); Carbon Dioxide 22.4 mmol/L (21.6-31.8); Chloride 107 mmol/L (96-109); Chol/HDL Ratio 3.13 Ratio; Globulin 2.5 g/dL (1.6-3.3); Glucose 97 mg/dL (70-110); LDL Cholesterol,Calculated 95.8 mg/dL (0.0-131.0); Potassium 4.6 mmol/L (3.5-5.5); Sodium 141 mmol/L (135-145); Total Bilirubin 0.8 mg/dL (0.3-1.2); Total Protein 7.1 g/dL (6.2-8.2)
== END | disposition home or self-care (01) ==
LOC: LABWHC1 07:16
PROVIDERS: ATTEND Internal Medicine Interventional Cardiology
DX: E78.2 Mixed hyperlipidemia (principal)
CPT/HCPCS: 36415; 80053; 80061

== ENCOUNTER 2024-06-12 12:11 | Day surgery (SDC) | payer OTHER ==
[2024-06-11 13:35] VITALS: BMI 26.7
[2024-06-12 13:30] VITALS: TEMP 96.9
[2024-06-12] MEDS: IV FLUID CONTINUATION 1,000 ML IV ONE (13:37)
[2024-06-12] MEDS: LACTATED RINGERS 1,000 ML IV SCH (13:37)
[2024-06-12] MEDS ORDERED: PROPOFOL 10 MG/ML 20 ML VIAL IV ONE (14:38)
--- NOTE | 2024-06-12 14:52 | P.PCN ---
Date of Procedure: 06/12/24 Procedure(s) Performed: BRIEF HISTORY: Patient is a 64-year-old pleasant white male scheduled for an elective colonoscopy as a part of screening for colon cancer. PROCEDURE PERFORMED: Colonoscopy snare polypectomy. PREOPERATIVE DIAGNOSIS: Screening for colon cancer. IV sedation per Anesthesia. PROCEDURE: After informed consent was obtained, the patient, was brought into the endoscopy unit. IV sedation was administered by Anesthesia under continuous monitoring. Digital rectal examination was normal. Initially the Olympus CF-160 flexible video colonoscope was then inserted in the rectum, gradually advanced into the cecum without any difficulty. Careful examination was performed as the scope was gradually being withdrawn. Ileocecal valve and the appendiceal orifice were visualized and appeared normal. Prep was excellent. Mucosa of the cecum, ascending colon, transverse colon, descending colon, sigmoid colon, and rectum appeared normal. Rectum there was a 5 mm polyp that was removed by cold snare polypectomy. Scattered sigmoid diverticulosis seen. Retroflexion was performed in the rectum and no lesions were seen. The patient tolerated the procedure well. IMPRESSION: 5 mm rectal polyp status post cold snare polypectomy Scattered sigmoid diverticulosis RECOMMENDATIONS: Findings of this examination were discussed with the patient as well as his family. He was advised to follow-up with the biopsy results. If the biopsy reveals adenoma he can have repeat colonoscopy in 5 years..
[2024-06-12 15:02] VITALS: BP 128/69; PULSE 80; RESP 20
== END 2024-06-12 15:57 | disposition home or self-care (01) ==
LOC: ORWHC2ENDO 12:11
PROVIDERS: ATTEND Internal Medicine Gastroenterology
DX: Z12.11 Encounter for screening for malignant neoplasm of colon (principal); D12.8 Benign neoplasm of rectum; K57.30 Diverticulosis of large intestine without perforation or abscess without bleeding; I10 Essential (primary) hypertension; E78.5 Hyperlipidemia, unspecified; Z79.899 Other long term (current) drug therapy; Z98.890 Other specified postprocedural states
CPT/HCPCS: 88305; 45385; J2704